=== PATIENT | female | born 1955 | race Caucasian/White ===

== ENCOUNTER 2025-01-12 13:43 | Outpatient (AMB) | payer MEDICARE, BC, SELFPAY ==
[2025-01-12 14:04] VITALS: BP 122/80; PULSE 83; TEMP 36.8; O2SAT 97; BMI 32.6
--- NOTE | 2025-01-12 14:04 | AM.OFFWIN_ITS ---
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 She reports low-grade fevers and chills. She feels as though she has a lot of chest congestion but she is unable to cough up any sputum. She also reports associated nasal congestion and rhinorrhea although this has improved. She denies any chest pain or shortness of breath. She denies any lower extremity edema. [facility] Social History Patient Tobacco Use Status: Never used Tobacco Review of Systems Const All systems reviewed & are unremarkable except as noted in HPI and below Reports no additional complaints Eyes Reports no additional complaints ENT Reports no additional complaints Card Reports no additional complaints Resp Reports no additional complaints GI Reports no additional complaints Reports no additional complaints Musc Reports no additional complaints Skin/Breast Reports system reviewed and no additional complaints, except as documented Neuro Reports no additional complaints Psych Reports no additional complaints Endo Reports no additional complaints Saad/Lymph Reports no additional complaints Aller/Immun Reports no additional complaints Physical Exam Vital Signs: Last Vital Signs Temp 98.3 F 01/12/25 14:04 Pulse 83 01/12/25 14:04 BP 122/80 01/12/25 14:04 Pulse Ox 97 01/12/25 14:04 BMI result Body Mass Index 32.6 Const Other: Vital signs reviewed. Constitutional: Non-toxic appearing. No acute distress. Well-developed and well-nourished. HEENT: Normocephalic and atraumatic. Moist mucous membranes. No pharyngeal erythema or exudates. Skin: Warm and dry. No rashes or lesions noted. Neck: Full and painless range of motion. No cervical lymphadenopathy. Cardio: Regular rate and rhythm. No murmurs, gallops, or rubs. No lower extremity edema. No JVD. Pulmonary: No respiratory distress. No accessory muscle usage. She has expiratory wheezing throughout as well as rhonchorous breath sounds of the right lung. Gastrointestinal: Soft, nontender, and nondistended in all 4 quadrants. Musculoskeletal: Normal range of motion in joints throughout the body. No deformity or other signs of injury. Neuro: Alert and oriented x4. Cranial nerves 2-12 grossly intact. No focal deficits appreciated. Psych: Normal mood and affect. Assessment & Plan Assessment & Plan (1) Pneumonia: Code(s): J18.9 - Pneumonia, unspecified organism Qualifiers: Pneumonia type: due to unspecified organism (2) Acute bronchitis: Code(s): J20.9 - Acute bronchitis, unspecified Qualifiers: Bronchitis organism: unspecified organism Qualified Code(s): J20.9 - Acute bronchitis, unspecified Plan This is a 69-year-old female who presented to the walk-in clinic complaining of chest congestion and a dry cough x1 week. On physical examination, the patient has expiratory wheezing throughout both lungs as well as rhonchorous breath sounds of the right lung. History and physical are concerning for community- acquired pneumonia as well as acute bronchitis. A chest x-ray was deferred to reduce exposure to radiation but given abnormal breath sounds, there is strong suspicion for pneumonia of the right lung as well as acute bronchitis. Patient was given p.o. amoxicillin/clavulanate 875/125 mg twice daily x5 days and p.o. azithromycin 500 mg today followed by 250 mg daily x4 days for treatment of presumed community-acquired pneumonia as well as p.o. prednisone 40 mg daily x5 days to treat acute bronchitis. Patient was offered COVID/flu/RSV testing but declined. She was advised to follow-up here or proceed directly to the [facility] room if she were to develop any hemoptysis, increased sputum production/purulence, or chest pain/shortness of breath. Patient verbalized understanding and she is in agreement with the plan. Medications: New amoxicillin-pot clavulanate 875-125 mg 1 tab PO BID 10 tabs 0RF prednisone 40 mg (2 x 20 mg) PO DAILY 10 tabs 0RF azithromycin For 250 mg dose pack: take 500 mg today (day 1), then 250 mg for 4 days (days 2-5) PO 6 tabs 0RF Discontinued azithromycin Discontinued Reason: Patient Completed Course take 500 mg today (day 1), then 250 mg for 4 days (days 2-5) PO 6 tabs 0RF Coding Level of Care Code New Pt Level 3 (32352) Diagnoses Pneumonia J18.9 Pneumonia type: due to unspecified organism Acute bronchitis, unspecified organism J20.9 Bronchitis organism: unspecified organism
--- OUTSIDE RECORDS SUMMARY | 2025-01-12 14:10 | XMS_ITS | Encounter Summary ---
Author Organization [facility] Address [address] [place] [address] Care Team Providers Care Head Athletic Trainer/Strength Coach Name Role Phone Clary Greenwood MD Primary Care Provider [phone] Encounter Details Date Type Department Care Team (Late Contact Info) Description 10/22/[address] [facility] Lab [address] [facility] [place] [address] Jose Francisco Morley MD [address] [place] [phone] Essential (primary) hypertension Social History Tobacco Use Types Packs/Day Years Used Date Smoking Tobacco: Never Smokeless Tobacco: Never Alcohol Use Standard Drinks/Week Comments Yes 0 (1 standard drink = 0.6 oz pur e alcohol) Comments Unknown Sex and Gender Information Value Date Recorded Sex Assigned at Not on file Legal Sex Female 2:47 AM EST Gender Identity Not on file Sexual Orientation Not on file documented as of this encounter Plan of Treatment Upcoming Encounters Date Type Department Care Team (Late Contact Info) Description 01/24/2025 2:00 PM EST Office Visit Urogynecology [address] [phone] Sarah Carballo MD [address] [facility] [address] [place] [address] 02/13/2025 11:00 AM EDT Office Visit Adult Medicine [id number] [place] [phone] Clary Greenwood MD [address] [place], [place] 02/20/2025 9:30 AM EDT Office Visit [facility] [place] [address] [facility] [address] [place] [phone] Frida Londono NP [address] [facility] [address] [place] [address] documented as of this encounter Procedures Procedure Name Priority Date/Time Associated Diagnosis Comments COMPLETE BLOOD COUNT Routine 10/23/2024 5:28 AM EST Essential (primary) hypertension COMPREHENSIVE METABOLIC PANEL Routine 10/23/2024 5:20 AM EST Essential (primary) hypertension documented in this encounter Results * (ABNORMAL) Complete blood count (10/23/2024 5:28 AM EST) WBC 6.0 4.8 - 10.8 K/mcL LAB HEMETOLOGY METHOD 10/23/2024 8:45 AM [facility] RBC 3.70(L) 3.80 - 4.80 M/mcL LAB HEMETOLOGY METHOD 10/23/2024 8:45 AM [facility] Hemoglobin 11.7 11.5 - 16.0 g/dL LAB HEMETOLOGY METHOD 10/23/2024 8:45 AM [facility] Hematocrit 35.5 35.0 - 47.0 % LAB HEMETOLOGY METHOD 10/23/2024 8:45 AM [facility] MCV 95.4 79.0 - 98.0 FL LAB HEMETOLOGY METHOD 10/23/2024 8:45 AM [facility] MCH 31.5 27.0 - 32.0 pcg LAB HEMETOLOGY METHOD 10/23/2024 8:45 AM EST [facility] MCHC 33.0 32.0 - 37.0 g/dL LAB HEMETOLOGY METHOD 10/23/2024 8:45 AM EST [facility] RDW 13.8 11.0 - 15.0 % LAB HEMETOLOGY METHOD 10/23/2024 8:45 AM [facility] Platelets 208 130 - 400 K/mcL LAB HEMETOLOGY METHOD 10/23/2024 8:45 AM EST [facility] MPV 9.8 7.0 - 11.0 FL LAB HEMETOLOGY METHOD 10/23/2024 8:45 AM [facility] NRBC 0.0 <1.0 % LAB HEMETOLOGY METHOD 10/23/2024 8:45 AM [facility] NRBC Absolute 0.00 <0.10 K/mcL LAB HEMETOLOGY METHOD 10/23/2024 8:45 AM [facility] Blood Venous blood specimen / Unknown Venipuncture / Unknown 10/23/2024 5:28 AM EST 10/23/2024 8:20 AM EST us Jose Francisco Morley MD LAB BLOOD ORDERABLES Final Resu lt [facility] [address] [place] [address], * (ABNORMAL) Comprehensive metabolic panel (10/23/2024 5:20 AM EST) Sodium 142 133 - 145 mmol/L LAB CHEMISTRY METHOD 10/23/2024 9:15 AM EST [facility] Potassium 4.7 3.5 - 5.5 mmol/L LAB CHEMISTRY METHOD 10/23/2024 9:15 AM [facility] Chloride 111(H) 96 - 110 mmol/L LAB CHEMISTRY METHOD 10/23/2024 9:15 AM [facility] CO2 26 21 - 32 mmol/L LAB CHEMISTRY METHOD 10/23/2024 9:15 AM [facility] Anion Gap 5 3 - 11 LAB CHEMISTRY METHOD 10/23/2024 9:15 AM [facility] Glucose 111(H) 70 - 100 mg/dL LAB CHEMISTRY METHOD 10/23/2024 9:15 AM [facility] BUN 28(H) 5 - 25 mg/dL LAB CHEMISTRY METHOD 10/23/2024 9:15 AM [facility] Creatinine 0.88 0.50 - 1.10 mg/dL LAB CHEMISTRY METHOD 10/23/2024 9:15 AM [facility] eGFR 72 >=60 mL/min/1. 73m2 LAB CHEMISTRY METHOD 10/23/2024 9:15 AM [facility] Comment:Calculation based on the??Chronic Kidney Disease Epidemiology Collaboration (CKD-EPI) equation refit??without adjustment for race. BUN/Creatinine Ratio 31.8 LAB CHEMISTRY METHOD 10/23/2024 9:15 AM [facility] Calcium 8.5 8.5 - 10.5 mg/dL LAB CHEMISTRY METHOD 10/23/2024 9:15 AM [facility] AST (SGOT) 22 10 - 42 unit/L LAB CHEMISTRY METHOD 10/23/2024 9:15 AM [facility] ALT (SGPT) 42 10 - 60 unit/L LAB CHEMISTRY METHOD 10/23/2024 9:15 AM [facility] Alkaline Phosphatase 78 42 - 121 unit/L LAB CHEMISTRY METHOD 10/23/2024 9:15 AM [facility] Total Protein 5.9(L) 6.0 - 8.0 g/dL LAB CHEMISTRY METHOD 10/23/2024 9:15 AM [facility] Albumin 3.5 3.2 - 5.0 g/dL LAB CHEMISTRY METHOD 10/23/2024 9:15 AM EST [facility] Total Bilirubin 0.4 0.0 - 1.4 mg/dL LAB CHEMISTRY METHOD 10/23/2024 9:15 AM EST [facility] Blood Venous blood specimen / Unknown Venipuncture / Unknown 10/23/2024 5:20 AM EST 10/23/2024 8:23 AM EST us Jose Francisco Morley MD LAB BLOOD ORDERABLES Final Resu lt [facility] [address] [place] [address], documented in this encounter Visit Diagnoses Diagnosis Essential (primary) hypertension Unspecified essential hypertension documented in this encounter Care Teams Head Athletic Trainer/Strength Coach Relationship Specialty Start Date End Date Clary Greenwood MD [address] [place] [id number] PCP - General 11/30/1992 documented as of this encounter
--- OUTSIDE RECORDS SUMMARY | 2025-01-12 14:10 | XMS_ITS | Clinical Summary ---
Author Organization [facility] Address [address] [place] [address] Phone Care Team Providers Care Needle Setter Name Role Phone Clary Greenwood MD Primary Care Provider [phone] Allergies Active Allergy Reactions Criticality Noted Date Comments Amoxicillin Diarrhea Low 10/13/2021 Amoxicillin-Pot Clavulanate Diarrhea Low 03/21/2015 Cephalexin Nausea And Vomiting Low 10/29/2010 Other reaction(s): Other (See Comments) Other reaction(s): GI Upset ? Caused dizziness n/v Unsure if it was the keflex because was also ??on bactrim Cephalexin Monohydrate Nausea And Vomiting,Other Low 10/29/2010 ? Caused dizziness n/v Unsure if it was the keflex because was on bactrim also Clavulanic Acid Diarrhea Low 10/13/2021 Other reaction(s): Other (See Comments) Hydrochlorothiazide Photosensitivity Low 10/12/2005 Hydrocodone Low 10/12/2005 Other reaction(s): Other (See Comments) paresthesias and sensation of bugs crawling Meperidine Headache Low 03/25/2015 Dizziness, vomiting, and headache after demerol in 2002 colonoscopy. Other reaction(s): Other (See Comments) Other reaction(s): Headaches Dizziness, vomiting, and headache after demerol in 2003 colonoscopy. Norepinephrine Bitartrate Unknown 12/21/2024 Oxycodone Itching Medium 01/26/2022 Sulfamethoxazole Low 10/13/2021 Other reaction(s): Other (See Comments) GI upset Sulfamethoxazole-Trimetho prim Nausea And Vomiting Low 10/29/2010 Other reaction(s): OTHER, Other (See Comments) Dizziness and n/v ??Unsure if it was the bactrim because was also on keflex Other reaction(s): GI Upset Dizziness and n/v Unsure if it was the bactrim because was also on keflex Trimethoprim Low 10/13/2021 Other reaction(s): Other (See Comments) Sulfa- ??Gi upset Medications calcium carbonate-vitam in D 500 mg-5 mcg (200 unit) per tablet Take 1 tablet by mouth daily. Active fluticasone propionate (FLONASE) 50 mcg/actuation nasal spray spray/apply 1 spray in each nostril 2 (two) times a day. 1 Active furosemide (LASIX) 20 mg tablet Take 1 tablet by mouth daily. 6 Active multivitamin (MULTIPLE VITAMINS ORAL) Take 1 tablet by mouth daily. Active vitamin B complex (VITAMINS B COMPLEX ORAL) Take by mouth. Active acetaminophen (TYLENOL) 500 mg tablet Sig - Route: Take 1,000 mg by mouth every 6 hours as needed. - Oral Class: Historic Active turmeric root extract 500 mg capsule Take by mouth. Active amLODIPine (NORVASC) 10 mg tablet Take 1 Tablet by mouth at bedtime. 4 Active fexofenadine (EBONI) 180 mg tablet Take 1 tablet (180 mg total) by mouth 1 (one) time each day. 4 Active spironolactone (ALDACTONE) 25 mg tablet TAKE 1 TABLET BY MOUTH AT BEDTIME. 4 Active aspirin 81 mg EC tablet Take 1 tablet (81 mg total) by mouth 1 (one) time each day. Active atorvastatin (LIPITOR) 80 mg tablet Take 1 tablet (80 mg total) by mouth at bedtime. 90 tablet 1 4 Active losartan (COZAAR) 100 mg tablet Take 1 tablet (100 mg total) by mouth 1 (one) time each day. 90 tablet 1 4 Active loratadine (CLARITIN) 10 mg tablet Take 10 mg by mouth every night at bedtime. 1 12/21/19 25 Discontinu ed(Alterna te therapy) clopidogreL (PLAVIX) 75 mg tablet Take 1 tablet (75 mg total) by mouth 1 (one) time each day. 90 tablet 1 4 12/21/19 25 Discontinu ed(Therapy completed) Active Problems Problem Noted Date Diagnosed Date Stroke (cerebrum) 10/17/2024 Prediabetes 06/19/2024 [place] (stress urinary incontinence, female) 2022 Overview (01/31/2024): Last Assessment & Plan: Reviewed behavioral modifications including weight loss, kegel exercises, etc. Severe obesity (BMI 35.0-35.9 with comorbidity) 12/09/2022 Osteopenia 09/10/2022 Total knee replacement status 03/02/2022 Overview (11/04/2024): 02/10 left TKR 06/12 right TKR Osteoarthritis of both knees 05/15/2020 Overview (11/04/2024): L>R Obesity (BMI 30.0-34.9) 06/07/2018 Pulmonary nodules/lesions, multiple 09/12/2014 Medial meniscus tear 04/04/2014 Hyperlipidemia 11/09/2012 Retinal vein occlusion 01/04/2012 Overview (11/04/2024): Left, laser treatment Incontinence of feces 02/12/2010 Overview (12/09/2022): IMO update IMO update DJD (degenerative joint disease) of cervical spi ne 02/09/2008 Headache 09/13/2007 Allergic rhinitis 12/24/2006 Sciatica 10/12/2005 Venous (peripheral) insufficiency 10/12/2005 Essential hypertension, benign 10/12/2005 Encounters Date Type Department Care Team Description 12/21/2024 4:00 PM EST Office Visit [facility] [place] [address] [phone] Keshav Araujo MD Pure hypercholesterolemia (Primary Dx); Primary hypertension; Bilateral leg edema 12/13/[address] [phone] Clary Greenwood MD Hide Grader Feedback ([facility]) 12/01/[address] [phone] Verona Olsen [place] faxed order ([facility] Visiting Nurse order #[id number]) 11/27/[address] [phone] Clary Greenwood MD Referral 11/07/2024 1:00 PM EST Office Visit [address] [phone] Clary Greenwood MD Cerebrovascular accident (CVA) due to thrombosis of right posterior cerebral artery (CMS/HCC) (Primary Dx); Essential hypertension, benign; Prediabetes 11/06/[address] [phone] Clary Greenwood MD [facility] 11/01/[address] [phone] Clary Greenwood MD vna 10/31/[address] [phone] Clary Greenwood MD [facility] 10/29/2024 Lab Requisition [facility] [address] [facility] [place] [phone] Jose Francisco Morley MD Cerebral infarction, unspecified (CMS/HCC); Essential (primary) hypertension 10/25/2024 Lab Requisition [facility] [address] [place] [phone] Jose Francisco Morley MD Cerebral infarction, unspecified ([facility]); Essential (primary) hypertension 10/24/2024 Lab Requisition [facility] [address] [place] [phone] Jose Francisco Morley MD Other specified abnormal findings of blood chemistry; Hyperlipidemia, unspecified; Cerebral infarction, unspecified ([facility]/HCC); Essential (primary) hypertension 10/22/2024 Lab Requisition [facility] [address] [place] [phone] Jose Francisco Morley MD Essential (primary) hypertension 10/22/2024 Lab Requisition [facility] [address] [place] [phone] Jose Francisco Morley MD Essential (primary) hypertension from Last 3 Months Immunizations Name Administration Dates Next Due Influenza trivalent, 0.5mL ( Fluad) 65yo and older 07/25/2024 Influenza trivalent, 0.5mL ( Fluzone High-dose) 65yo and older 08/22/2023 Influenza, Unspecified 08/24/2022,2020,09/15/2020,08/23,11/24/2018,11/26/2016,01/30/2015 ,09/15/2013,01/04/2012,12/27/2009 [employer] SARS-CoV-2 COVID-19, mRNA, LNP-S, preservative free 04/06/2022,09/26/2021 Pneumococcal conjugate 13 va lent (Prevnar 13, PCV13) 2mo and older 11/04/2021 Pneumococcal conjugate 20 va lent (Prevnar 20, PCV 20) 2mo and older 11/28/2022 Pneumococcal polysaccharide 23 valent (Pneumovax 23) 2yo and older 10/28/2012 Pneumococcal, Unspecified 10/27/2012 RSV, bivalent, protein subun it RSVpreF, 0.5mL, Preservative Free (ABRYSVO) 60yo and older or 32 through 36 wks of 07/20/2023 TD, Adsorbed, Preservative Free 08/24/2022 Td Tetanus diptheria (Tdvax) 7yo and older 08/24/2022,03/22/2003 Tdap Tetanus diptheria acell ular pertussis (Boostrix; Adacel) 7yo and older 01/04/2012 Zoster Live 03/04/2022 Zoster recombinant (Shingrix ) 19yo and older 11/28/2022,03/04/2022 Surgical History Surgery Date Site/Laterality Comments OTHER SURGICAL HISTORY -1993 diskectomy L5 OTHER SURGICAL HISTORY RADIAL KERATOTOMY; COMMENT: left eye FLEXIBLE SIGMOIDOSCOPY 02/16/2010 normal COLONOSCOPY 06/2003 COLONOSCOPY 12/14/2013 adenomas; repeat in 1 year COLONOSCOPY 03/25/2015 : tics; repeat in 5 yrs BUNIONECTOMY 01/11/2018 Right : right chevron bunionectomy with screw fixation OTHER SURGICAL HISTORY 01/11/2018 Right : 2nd right PIPJ arthroplasty BREAST BIOPSY Left : benign TOTAL KNEE ARTHROPLASTY 01/2022 Left Medical History Medical History Date Comments Unspecified venous (peripheral) insufficiency Sciatica Allergic rhinitis, cause unspecified 12/24/2006 Essential hypertension, benign Hyperlipidemia 11/09/2012 DJD (degenerative joint disease) of cervical spi ne 02/09/2008 Retinal vein occlusion (CMS/HCC) 01/04/2012 Left, laser treatment Incontinence of feces 02/12/2010 Medial meniscus tear 04/04/2014 DX:Medial m eniscus tear Osteoarthritis of both knees 05/15/2020 Prediabetes 06/19/2024 Family History Medical History Relation Name Comments Diabetes Brother Heart attack Father htn, diabetes d ied 67 Arthritis Maternal Grandmother Arthritis Mother Heart failure Mother htn, 61, RA Prostate cancer Uncle Paternal Relation Name Status Comments Brother Father Maternal Grandmother Mother Other Paternal cousin Alive Uncle Social History Tobacco Use Types Packs/Day Years Used Date Smoking Tobacco: Never Passive Smoke Exposure: Past Smokeless Tobacco: Never Alcohol Use Standard Drinks/Week Comments Yes 0 (1 standard drink = 0.6 oz pur e alcohol) Comments Unknown Sex and Gender Information Value Date Recorded Sex Assigned at Not on file Legal Sex Female 2:47 AM EST Gender Identity Not on file Sexual Orientation Not on file Obstetrics History Last Filed Vital Signs Vital Sign Reading Time Taken Comments Blood Pressure 154/72 12/21/2024 4:03 PM EST Pulse 74 12/21/2024 4:03 PM EST Temperature 36.4 ??C (97.5 ??F) 11/07/2024 12:[address] Respiratory Rate 16 11/07/2024 12:49 PM EST Oxygen Saturation 100% 12/21/2024 4:03 PM EST Inhaled Oxygen Concentration - - Weight 85.3 kg (188 lb) 12/21/2024 4:03 PM EST Height 158.8 cm (5' 2.5 ) 12/21/2024 4:03 PM EST Body Mass Index 33.84 12/21/2024 4:03 PM EST Plan of Treatment Upcoming Encounters Date Type Department Care Team (Late st Contact Info) Description 01/24/2025 2:00 PM EST Office Visit Urogynecology [facility] [address] [place], [place] [phone] Sarah Carballo MD [address] [facility] [address] [place] [address] 02/13/2025 11:00 AM EDT Office Visit Adult Medicine [facility] - [address] [phone] Clary Greenwood MD [address] [place], [place] 02/20/2025 9:30 AM EDT Office Visit [facility] [place] [address] [facility] [address] [place] [phone] Frida Londono NP 19 [facility] [address] [place] [address] Health Maintenance Due Date Last Done Comments Social Influencers of Health Screening 10/30/2022 Falls Risk Assessment 11/29/2024 11/29/2023, 024 Colorectal Cancer Screening: Colonoscopy 05/13/2025 05/13/2020 Depression Screening 06/05/2025 06/05/2024, 08/24/20 22 Medicare Annual Wellness Visit 06/05/2025 06/05/2024 Hypertension/CHF/CAD Annual BMP Blood Test 10/30/2025 10/30/2024, 10/26/2024, 10/24/2024, Additional history exists Breast Cancer Screening 09/19/2026 09/19/20, 09/19/2024, 09/13/2023, Additional history exists Cholesterol Screening (Lipid Panel) 06/06/2029 06/06/2024, 06/06/2024, 03/10/2023 DTaP,Tdap,and Td Vaccines (5 - Td or Tdap) 08/24/2032 08/24/2022, 08/24/2022, 01/04/2012, Additional history exists Osteoporosis Screening (Bone Density Screening) 09/09/2032 09/09/2022 Hepatitis C Screening Completed 05/11/2013, 013 Pneumococcal Vaccine: 50+ Years Completed 11/28/2022, 11/04/2021, 10/28/2012, Additional history exists Zoster Vaccines Completed 11/28/2022, 02/20, 03/04/2022 RSV Immunization Patients 60+ Years Old Completed 07/20/2023 COVID-19 Vaccine Completed 07/25/2024, , 04/06/2022, Additional history exists Influenza Vaccine Completed 07/25/2024, , 08/24/2022, Additional history exists HIB Vaccines Aged Out No longer eligi ble based on patient's age to complete this topic HPV Vaccines Aged Out No longer eligi ble based on patient's age to complete this topic Hepatitis A Vaccines Aged Out No long er eligible based on patient's age to complete this topic Hepatitis B Vaccines Aged Out No long er eligible based on patient's age to complete this topic IPV Vaccines Aged Out No longer eligi ble based on patient's age to complete this topic MMR Vaccines Aged Out No longer eligi ble based on patient's age to complete this topic Meningococcal ACWY Vaccine Aged Out N o longer eligible based on patient's age to complete this topic Meningococcal B Vacine Aged Out No lo nger eligible based on patient's age to complete this topic RSV Immunization Patients Under 20 months Aged Out No longer eligible based on patient's age to complete this topic Varicella Vaccines Aged Out No longer eligible based on patient's age to complete this topic Medical Devices Implanted Type Area Maintenance Service Dispatcher Device Identifier Shelf Expiration Date Model / Serial / Lot Cement Bone Surg Simplex Radiopq Stry-Howm [id number] Implanted:Qty: 1 on 01/26/2022 by Gonzalo Pope MD Left: Knee [employer] 6191-1-010 / / Cement Bone Surg Simplex Radiopq Stry-Howm [id number] [id number] Implanted:Qty: 1 on 01/26/2022 by Gonzalo Pope MD Left: Knee [employer] 6191-010 / / Knee Bsplt Triathlon Ti Sz 4 Stry-Howm [id number] Implanted:Qty: 1 on 01/26/2022 by Gonzalo Pope MD Left: Knee [employer] [id number] 10/27/2026 5536-B-400 / / [id number] Knee Ptla Asym Tritanium 32x10 Stry-Howm [id number] [id number] Implanted:Qty: 1 on 01/26/2022 by Gonzalo Pope MD Left: Knee [employer] [id number] 10/16/2026 5552-L-320 / / [id number] Knee Tib Insrt Cr-X3 [id number] Stry-Howm [id number] Implanted:Qty: 1 on 01/26/2022 by Gonzalo Pope MD Left: Knee [employer] [id number] 02/10/2025 5530-G-411 / / [id number] Knee Fem Bsplt W Pa Stry-Howm [id number] Implanted:Qty: 1 on 01/26/2022 by Gonzalo Pope MD Left: Knee [employer] [id number] 10/26/2026 5517-F-401 / / [id number] Tibial Bearing Insert Cs 10mm Stry-Howm [id number] Implanted:Qty: 1 on 06/22/2022 by Gonzalo Pope MD Right: Knee [employer] [id number] 05/05/2027 5531-G-410 -E / / [id number] Knee Bsplt Triathlon Ti Sz 4 Stry-Howm [id number] Implanted:Qty: 1 on 06/22/2022 by Gonzalo Pope MD Right: Knee [employer] [id number] 04/09/2027 5536-B-400 / / [id number] Knee Fem Bsplt W Pa Stry-Howm [id number] Implanted:Qty: 1 on 06/22/2022 by Gonzalo Pope MD Right: Knee [employer] [id number] 03/29/2027 5517-F-402 / / [id number] Knee Ptla Asym Tritanium 32x10 Stry-Howm [id number] Implanted:Qty: 1 on 06/22/2022 by Gonzalo Pope MD Right: Knee [employer] [id number] 04/01/2027 5552-L-320 / / [id number] Procedures Procedure Name Priority Date/Time Associated Diagnosis Comments ECG 12-LEAD Routine 12/21/2024 4:14 PM EST Pure hypercholesterolemia Primary hypertension Bilateral leg edema COMPREHENSIVE METABOLIC PANEL Routine 10/30/2024 5:24 AM EST Cerebral infarction, unspecified (CMS/HCC) Essential (primary) hypertension COMPLETE BLOOD COUNT Routine 10/30/2024 5:24 AM EST Cerebral infarction, unspecified (CMS/HCC) Essential (primary) hypertension BASIC METABOLIC PANEL Routine 10/26/2024 5:19 AM EST Cerebral infarction, unspecified (CMS/HCC) Essential (primary) hypertension COMPLETE BLOOD COUNT Routine 10/26/2024 5:19 AM EST Cerebral infarction, unspecified (CMS/HCC) Essential (primary) hypertension COMPREHENSIVE METABOLIC PANEL Routine 10/24/2024 5:26 AM EST Other specified abnormal findings of blood chemistry Hyperlipidemia, unspecified Cerebral infarction, unspecified (CMS/HCC) Essential (primary) hypertension COMPLETE BLOOD COUNT Routine 10/24/2024 5:26 AM EST Other specified abnormal findings of blood chemistry Hyperlipidemia, unspecified Cerebral infarction, unspecified (CMS/HCC) Essential (primary) hypertension COMPLETE BLOOD COUNT Routine 10/23/2024 5:28 AM EST Essential (primary) hypertension COMPREHENSIVE METABOLIC PANEL Routine 10/23/2024 5:20 AM EST Essential (primary) hypertension COMPREHENSIVE METABOLIC PANEL Routine 10/22/2024 6:28 AM EST Essential (primary) hypertension COMPLETE BLOOD COUNT Routine 10/22/2024 6:28 AM EST Essential (primary) hypertension SCREENING MAMMOGRAPHY BI 2-VIEW BREAST INC CAD Routine 09/19/2024 8:19 AM EDT Encounter for screening mammogram for malignant neoplasm of breast LIPID PANEL Routine 06/06/2024 DEPRESSION SCREENING Routine 06/05/2024 FALLS RISK ASSESSMENT Routine 11/29/2023 DXA BONE DENSITY STUDY 1+ SITS AXIAL SKEL Routine 09/09/2022 2:02 PM EDT Asymptomatic menopausal state HEPATITIS C SCREENING Routine 05/11/2013 from Last 3 Months or Most Recently Relevant to Health Maintenance Results * ECG 12 lead (12/21/2024 4:14 PM EST) Narrative Keshav Araujo MD - 12/21/2024 4:14 PM EST Normal sinus rhythm at 68 bpm with poor R wave progression across the early leads and minor ST abnormality-otherwise normal tracing us Keshav Araujo MD ECG ORDERABLES Final Result * (ABNORMAL) Complete blood count (10/30/2024 5:24 AM EST) Only the most recent of5 resultswithin the time period is included. WBC 5.9 4.8 - 10.8 K/mcL LAB HEMETOLOGY METHOD 10/30/2024 9:48 AM [facility] RBC 3.70(L) 3.80 - 4.80 M/mcL LAB HEMETOLOGY METHOD 10/30/2024 9:48 AM [facility] Hemoglobin 11.5 11.5 - 16.0 g/dL LAB HEMETOLOGY METHOD 10/30/2024 9:48 AM [facility] Hematocrit 35.5 35.0 - 47.0 % LAB HEMETOLOGY METHOD 10/30/2024 9:48 AM [facility] MCV 96.2 79.0 - 98.0 FL LAB HEMETOLOGY METHOD 10/30/2024 9:48 AM [facility] MCH 31.2 27.0 - 32.0 pcg LAB HEMETOLOGY METHOD 10/30/2024 9:48 AM [facility] MCHC 32.4 32.0 - 37.0 g/dL LAB HEMETOLOGY METHOD 10/30/2024 9:48 AM [facility] RDW 13.5 11.0 - 15.0 % LAB HEMETOLOGY METHOD 10/30/2024 9:48 AM [facility] Platelets 212 130 - 400 K/mcL LAB HEMETOLOGY METHOD 10/30/2024 9:48 AM [facility] MPV 9.9 7.0 - 11.0 FL LAB HEMETOLOGY METHOD 10/30/2024 9:48 AM [facility] NRBC 0.0 <1.0 % LAB HEMETOLOGY METHOD 10/30/2024 9:48 AM EST [facility] NRBC Absolute 0.00 <0.10 K/mcL LAB HEMETOLOGY METHOD 10/30/2024 9:48 AM [facility] Blood Venous blood specimen / Unknown Venipuncture / Unknown 10/30/2024 5:24 AM EST 10/30/2024 9:33 AM EST us Jose Francisco Morley MD LAB BLOOD ORDERABLES Final Resu lt [facility] [address] [place] [address], [place] [phone] * (ABNORMAL) Comprehensive metabolic panel (10/30/2024 5:24 AM EST) Only the most recent of4 resultswithin the time period is included. Sodium 142 133 - 145 mmol/L LAB CHEMISTRY METHOD 10/30/2024 10:15 AM [facility] Potassium 4.9 3.5 - 5.5 mmol/L LAB CHEMISTRY METHOD 10/30/2024 10:15 AM [facility] Chloride 109 96 - 110 mmol/L LAB CHEMISTRY METHOD 10/30/2024 10:15 AM [facility] CO2 28 21 - 32 mmol/L LAB CHEMISTRY METHOD 10/30/2024 10:15 AM [facility] Anion Gap 5 3 - 11 LAB CHEMISTRY METHOD 10/30/2024 10:15 AM [facility] Glucose 107(H) 70 - 100 mg/dL LAB CHEMISTRY METHOD 10/30/2024 10:15 AM [facility] BUN 17 5 - 25 mg/dL LAB CHEMISTRY METHOD 10/30/2024 10:15 AM [facility] Creatinine 0.66 0.50 - 1.10 mg/dL LAB CHEMISTRY METHOD 10/30/2024 10:15 AM [facility] eGFR 96 >=60 mL/min/1. 73m2 LAB CHEMISTRY METHOD 10/30/2024 10:15 AM [facility] Comment:Calculation based on the??Chronic Kidney Disease Epidemiology Collaboration (CKD-EPI) equation refit??without adjustment for race. BUN/Creatinine Ratio 25.8 LAB CHEMISTRY METHOD 10/30/2024 10:15 AM [facility] Calcium 9.0 8.5 - 10.5 mg/dL LAB CHEMISTRY METHOD 10/30/2024 10:15 AM [facility] AST (SGOT) 12 10 - 42 unit/L LAB CHEMISTRY METHOD 10/30/2024 10:15 AM [facility] ALT (SGPT) 24 10 - 60 unit/L LAB CHEMISTRY METHOD 10/30/2024 10:15 AM [facility] Alkaline Phosphatase 90 42 - 121 unit/L LAB CHEMISTRY METHOD 10/30/2024 10:15 AM [facility] Total Protein 5.8(L) 6.0 - 8.0 g/dL LAB CHEMISTRY METHOD 10/30/2024 10:15 AM [facility] Albumin 3.3 3.2 - 5.0 g/dL LAB CHEMISTRY METHOD 10/30/2024 10:15 AM [facility] Total Bilirubin 0.4 0.0 - 1.4 mg/dL LAB CHEMISTRY METHOD 10/30/2024 10:15 AM [facility] Blood Venous blood specimen / Unknown Venipuncture / Unknown 10/30/2024 5:24 AM EST 10/30/2024 9:25 AM EST us Jose Francisco Morley MD LAB BLOOD ORDERABLES Final Resu lt [facility] [address] [place] [address], [place] [phone] * (ABNORMAL) Basic metabolic panel (10/26/2024 5:19 AM EST) Sodium 144 133 - 145 mmol/L LAB CHEMISTRY METHOD 10/26/2024 9:07 AM [facility] Potassium 5.0 3.5 - 5.5 mmol/L LAB CHEMISTRY METHOD 10/26/2024 9:07 AM [facility] Chloride 111(H) 96 - 110 mmol/L LAB CHEMISTRY METHOD 10/26/2024 9:07 AM [facility] CO2 29 21 - 32 mmol/L LAB CHEMISTRY METHOD 10/26/2024 9:07 AM [facility] Anion Gap 4 3 - 11 LAB CHEMISTRY METHOD 10/26/2024 9:07 AM [facility] Glucose 102(H) 70 - 100 mg/dL LAB CHEMISTRY METHOD 10/26/2024 9:07 AM [facility] BUN 21 5 - 25 mg/dL LAB CHEMISTRY METHOD 10/26/2024 9:07 AM [facility] Creatinine 0.84 0.50 - 1.10 mg/dL LAB CHEMISTRY METHOD 10/26/2024 9:07 AM [facility] eGFR 76 >=60 mL/min/1. 73m2 LAB CHEMISTRY METHOD 10/26/2024 9:07 AM [facility] Comment:Calculation based on the??Chronic Kidney Disease Epidemiology Collaboration (CKD-EPI) equation refit??without adjustment for race. BUN/Creatinine Ratio 25.0 LAB CHEMISTRY METHOD 10/26/2024 9:07 AM [facility] Calcium 9.4 8.5 - 10.5 mg/dL LAB CHEMISTRY METHOD 10/26/2024 9:07 AM [facility] Blood Venous blood specimen / Unknown Venipuncture / Unknown 10/26/2024 5:19 AM EST 10/26/2024 8:15 AM EST us Jose Francisco Morley MD LAB BLOOD ORDERABLES Final [facility]u lt [facility] [address] [place] [address], * SCREENING MAMMOGRAPHY BI 2-VIEW BREAST INC CAD (09/19/2024 8:19 AM EDT) Anatomical Region Laterality Modality Radiographic Eden ging 09/13/2023 8:12 AM EDT Narrative 09/19/2024 4:42 PM EDT This is a summary report. The complete report is available in the patient's medical record. If you cannot access the medical record, please contact the sending organization for a detailed fax or copy. BILATERAL 3D DIGITAL SCREENING MAMMOGRAM History: Routine screening. ??No current breast complaints. ?? Comparison: Multiple priors dating back to 01/08/2020 Technique: Bilateral full-field digital 3D mammography was performed using standard CC and MLO projections CAD was used to evaluate this mammogram. Findings: Density: ??There are scattered areas of fibroglandular density-B RIGHT: No suspicious masses, groups of microcalcification or areas of architectural distortion identified. Stable typically benign parenchymal asymmetries LEFT: No suspicious masses, groups of microcalcifications or areas of architectural distortion identified. Stable typically benign parenchymal asymmetries IMPRESSION: : 1. ??No mammographic evidence of malignancy. BI-RADS Category 2 benign findings Recommendation: Routine annual screening mammography is recommended [facility] [address] [place] [address] [id number] Procedure Note Pierce Ceballos MD - 09/23/2024 This is a summary report. The complete report is available in thepatient's medical record. If you cannot access the medical record, pleasecontact the sending organization for a detailed fax or copy. BILATERAL 3D DIGITAL SCREENING MAMMOGRAM History: Routine screening. No current breast complaints. Comparison: Multiple priors dating back to 01/08/2020 Technique: Bilateral full-field digital 3D mammography was performed usingstandard CC and MLO projections CAD was used to evaluate this mammogram. Findings: Density: There are scattered areas of fibroglandular density-B RIGHT: No suspicious masses, groups of microcalcification or areas ofarchitectural distortion identified. Stable typically benign parenchymalasymmetries LEFT: No suspicious masses, groups of microcalcifications or areas ofarchitectural distortion identified. Stable typically benign parenchymalasymmetries IMPRESSION: : 1. No mammographic evidence of malignancy. BI-RADS Category 2 benign findings Recommendation: Routine annual screening mammography is recommended [id number] [place] [address] Clary Greenwood MD IMG XR PROCEDURES Final Result * (ABNORMAL) Lipid panel (06/06/2024) LDL/HDL Ratio 3 0 - 4 Triglycerides 83 0 - 150 mg/dL Cholesterol 197 0 - 200 mg/dL HDL 59 >=40 mg/dL LDL Cholesterol 122(A) 0 - 100 mg/dL Blood Venous blood specimen / Unknown Result [facility] Historical Provider LAB BLOOD ORDERABLES Rachel l Result * Depression Screening (06/05/2024) Pathologist [facility] Depression Screening abstracted Historical Provider HEALTH MAINTENANCE Final Result * Falls Risk Assessment (11/29/2023) Pathologist [facility] Falls Risk Assessment abstracted Result [facility] Historical Provider HEALTH MAINTENANCE Final Result * DXA BONE DENSITY STUDY 1+ SITS AXIAL SKEL (09/09/2022 2:02 PM EDT) Anatomical Region Laterality Modality Bone Densitometr y 08/26/2021 1:24 PM EDT Narrative 09/10/2022 12:42 PM EDT BONE DENSITY ? Lumbar Spine T-score is -1.6 ?? (SD relative to 20-29 y/o adult) Z-score is +0.2 ??(SD relative to age matched peers) This is consistent with osteopenia by criteria defined by the WHO. Left Hip T-score is -1.9 Z-score is -0.3 This is consistent with osteopenia by criteria defined by the WHO. Impression: Based on the World Health Organization criteria, Alethea Shea should be classified as having osteopenia. This patient has a 9.8% risk of major osteoporotic fracture and a 1.4% risk of hip fracture over the next 10 years. (World Health Organization Fracture Risk Assessment) [facility] Department of Internal Medicine recommends using National Osteoporosis Foundation (NOF) guidelines in treatment decisions related to osteoporosis. NOF guidelines suggest considering treatment for postmenopausal women and men aged 50 or older presenting with the following: History of hip or vertebral fracture. T-score less than or equal to -2.5 (DXA) at the femoral neck, total hip, or spine, after appropriate evaluation to exclude secondary causes. Low bone mass (T-score between -1.0 and -2.5 at the femoral neck or spine) AND a 10-year probability of a hip fracture greater than or equal to 3% OR a 10-year probability of a major osteoporosis-related fracture greater than or equal to 20% based on the [place]-adapted WHO algorithm Please note that all treatment decisions require clinical judgment and consideration of individual patient factors, including patient preferences, co-morbidities, previous drug use, risk factors not captured in the FRAX model (e.g., frailty, falls, vitamin D deficiency, increased bone turnover, interval significant decline in bone density) and possible under- or over-estimation of fracture risk by FRAX. Procedure Note Cheko Angel MD - 11/10/2022 BONE DENSITY Lumbar Spine T-score is -1.6 (SD relative to 20-29 y/o adult) Z-score is +0.2 (SD relative to age matched peers) This is consistent with osteopenia by criteria defined by the WHO. Left Hip T-score is -1.9 Z-score is -0.3 This is consistent with osteopenia by criteria defined by the WHO. Impression: Based on the World Health Organization criteria, Alethea hSea should beclassified as having osteopenia. This patient has a 9.8% risk of majorosteoporotic fracture and a 1.4% risk of hip fracture over the next 10years. (World Health Organization Fracture Risk Assessment) [facility] Department of Internal Medicine recommendsusing National Osteoporosis Foundation (NOF) guidelines in treatmentdecisions related to osteoporosis. NOF guidelines suggest consideringtreatment for postmenopausal women and men aged 50 or older presentingwith the following: History of hip or vertebral fracture. T-score less than or equal to -2.5 (DXA) at the femoral neck, total hip,or spine, after appropriate evaluation to exclude secondary causes. Low bone mass (T-score between -1.0 and -2.5 at the femoral neck or spine)AND a 10-year probability of a hip fracture greater than or equal to 3% ORa 10-year probability of a major osteoporosis-related fracture greaterthan or equal to 20% based on the [place]-adapted WHO algorithm Please note that all treatment decisions require clinical judgment andconsideration of individual patient factors, including patientpreferences, co-morbidities, previous drug use, risk factors not capturedin the FRAX model (e.g., frailty, falls, vitamin D deficiency, increasedbone turnover, interval significant decline in bone density) and possibleunder- or over-estimation of fracture risk by FRAX. Krystina MG IMG DXA PROCEDURES Final Resu lt * Hepatitis C Screening (05/11/2013) [facility] Hepatitis C Screening abstracted Historical Provider MD HEALTH MAINTENANCE Final Result from Last 3 Months or Most Recently Relevant to Health Maintenance Insurance MEDICARE [facility] Care Teams Needle Setter Relationship Specialty Start Date End Date Clary Greenwood MD [address] [place] [phone] PCP - General 11/30/1991
--- OUTSIDE RECORDS SUMMARY | 2025-01-12 14:10 | XMS_ITS | Encounter Summary ---
Author Organization [facility] Address [address] [place] [address] Care Team Providers Care Jumbo Operator Name Role Phone Clary Greenwood MD Primary Care Provider [phone] Reason for Referral * Consultation (Routine) - Authorized Specialty Diagnoses / Procedures Referred By Contjamar t Referred To Contact Dermatology Diagnoses Basal cell carcinoma (BCC) of scalp Pooja Hernandez PA [address] [place] [id number] Phone: tel: fax: Referral ID Status Reason Start Date Expiration Date Visits Requested Visits Authorized [id number] Authorized Specialty Services Required 12/13/2024 12/13/2025 1 1 Reason for Visit * Reason Onset Date Comments 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 * HARITHA Costello - 12/13/2024 11:59 AM EST Referral is signed. * Katie Valverde - 12/13/2024 10:47 AM EST Patient called the office about her referral order to [facility], There is an order on her chart but they put it for General Surgery instead of Dermatology. Please pend and sign new order. 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 [address] [phone] Clary Greenwood MD [address] [place], [place] 02/20/2025 9:30 AM EDT Office Visit [facility] [place] [address] [place] [address] [phone] Frida Londono NP [address] [facility] [address] [place] [address] Scheduled Referrals Name Type Priority Associated Diagnoses Order Schedule Ambulatory referral to Dermatology Outpatient Referral Routine Basal cell carcinoma (BCC) of scalp 1 Occurrences starting 12/13/2024 until 12/13/2025 documented as of this encounter Visit Diagnoses Diagnosis Basal cell carcinoma (BCC) of scalp- Primary documented in this encounter Care Teams Jumbo Operator Relationship Specialty Start Date End Date Clary Greenwood MD [address] [place] [address] PCP - General 11/30/1991 documented as of this encounter
--- OUTSIDE RECORDS SUMMARY | 2025-01-12 14:10 | XMS_ITS | Data Portability ---
Author Organization [place] [facility] [place] Address [address] [place] [address] Care Team Providers Care Government Operations Consultant Name Role Phone RONALD AMOS Primary Care Provider RONALD AMOS Referring Provider RONALD AMOS Primary Care Provider AMBREEN MARR Coal Cager Assessment Encounter Date Assessment Date Assessment LastModified by Organization Details LastModified Time 12/29/2023 12/29/2023 INTERIM HISTORY: The patient is 3-1/2 weeks status post total arthrodesis with cancellous bone allograft left wrist. She is doing well with therapy regaining range of motion for the fingers and thumb and forearm rotation. There are no complaints. EXAMINATION OF THE LEFT HAND AND WRIST: Skin he is intact. Scar unremarkable. Alignment excellent. Mild swelling. No tenderness, crepitus or gross motion throughout the carpus. Range of motion fingers and thumb good. Forearm pronation full. Supination good measuring approximately 60 degrees. Neurovascular status is intact. RADIOGRAPHS: Radiographs of the left wrist are obtained today. PA, lateral and oblique projections reveal satisfactory alignment hand and wrist. Satisfactory position internal hardware. Early consolidation of the arthrodesis. DISCUSSION: The patient is doing well. She will continue with the wrist splint for protection and continue with her therapy program for edema control, scar management and range of motion. Activities remain restricted to allow further healing of the arthrodesis. She will return for reevaluation in 4 weeks. Not available 12/29/2023 10:48:44 01/26/2024 01/26/2024 INTERIM HISTORY: The patient is 7-1/2 weeks status post total arthrodesis with cancellous bone allograft left wrist. She is doing well and progressing nicely with therapy. There are no complaints. EXAMINATION OF THE LEFT HAND AND WRIST: Skin is intact. Scar unremarkable. No tenderness or hypersensitivity. Alignment hand and wrist satisfactory. No tenderness, crepitus or gross motion throughout the carpus. Full range of motion fingers and thumb. Full forearm rotation. Neurovascular status is intact. RADIOGRAPHS: Radiographs of the left wrist are obtained today. PA, lateral and oblique projections reveal satisfactory alignment and healing of the arthrodesis. Satisfactory position internal hardware. DISCUSSION: The patient is doing well. She will continue with therapy program. Activities are restricted to allow further healing. She will use only Tylenol instead of nonsteroidal anti-inflammatori es for any mild postoperative discomfort. She will continue with the vitamin D3 as well. She will return for reevaluation in 6 weeks. Not available 01/26/2024 12:44:50 03/08/2024 03/08/2024 INTERIM HISTORY: The patient is 13-1/2 weeks status post total arthrodesis with cancellous bone allograft left wrist. She is progressing nicely with therapy. There are no complaints. EXAMINATION OF THE LEFT HAND AND WRIST: Skin is intact. Scar unremarkable. No tenderness associated with the internal hardware. Internal hardware stable. Alignment satisfactory. No tenderness, crepitus or gross motion throughout the carpus. Range of motion fingers and thumb full. Forearm rotation full. Neurovascular status is intact. RADIOGRAPHS: Radiographs of the left wrist are obtained today. PA, lateral and oblique projections reveal satisfactory healing arthrodesis. Satisfactory position internal hardware. DISCUSSION: The patient is doing well. The arthrodesis appears well-healed. The patient is instructed to resume her normal activities as tolerated. She will continue with therapy for a few more sessions. She is released to return to work without restrictions effective March 22, 2024. She will return for reevaluation in 3 months. Not available 03/08/2024 12:19:00 05/10/2024 05/10/2024 HPI : Patient is here for almost 2-year follow-up from right total knee replacement. She states she had a fall about 1 year ago which resulted in increased pain around the right knee. She has been watching it. She was having some wrist surgery. After she recovered from that she noticed the knee pain again. The pain is not severe but it is more significant compared to her left knee which also has a knee replacement and is doing well. The pain is there with certain movements. Physical Exam : Patient is well nourished, well-developed, in no acute distress, with appropriate mood and affect. The patient is oriented to time, place, and person. Respirations are even and unlabored. There is no inguinal adenopathy. Examination of the contralateral knee shows normal range of motion, strength, no tenderness, and well-healed skin incision. The affected limb is well-perfused, with well healed skin incision. The patient demonstrates good knee motion, stability, and strength. The knee moves from 0-125 degrees. The alignment of the knee is neutral. No pain with palpation or patellar compression. Muscle strength is normal. Pedal pulses are palpable. Hip examination, including flexion and internal rotation, was negative in that groin pain was not produced. Assessment/Plan : Patient is 2 years from right total knee replacement. She had a fall last year, which resulted in some mildly persistent pain. Exam, imaging, and history do not show any signs of implant related issues including loosening, malposition, instability, periprosthetic fracture, or infection. I would like her to get ESR and CRP. If these are negative then I would recommend a course of oral steroid. We will call her with these results. Not available 05/10/2024 14:31:33 05/17/2024 05/17/2024 INTERIM HISTORY: The patient is 23-1/2 weeks status post total arthrodesis with cancellous bone allograft left wrist. She is doing extremely well with the wrist. There are no complaints. EXAMINATION OF THE LEFT WRIST AND HAND: Skin is intact. Scar unremarkable. No swelling. Alignment excellent. No tenderness, crepitus or gross motion throughout the wrist and carpus. No tenderness associated with the internal hardware. Range of motion fingers and thumb full. Forearm rotation full. No tenderness or instability at the DRUJ. Neurovascular status is intact. RADIOGRAPHS: Radiographs of the left wrist are obtained today. PA, lateral and oblique projections reveal solid healing arthrodesis wrist. Good position internal hardware. DISCUSSION: The patient is doing extremely well. She has resumed her normal activities. No complaints with the wrist. She is not scheduled for any reevaluation. If she develops any problems, concerns or questions, she will contact the office. Not available 05/17/2024 14:26:48 Plan of Treatment Reminders Order Date Submit Date Provider Last Modified By Organization Details Last Modified Time Details Appointments None recorded. Lab ESR (erythrocyt e sedimentati on rate), blood - Joint pain status post arthroplast y, evaluate for joint infection 2023 024 [email or web address] Not available 09:56:01 C-reactive protein, quantitativ e, serum or plasma - Joint pain status post arthroplast y, evaluate for joint infection 2023 024 SHAMAR Not available 09:08:42 Referral None recorded. Procedures None recorded. Surgeries None recorded. Imaging XR, wrist, 3 or more view 2023 024 [email or web address] [facility], [address], [place], [address], 4 16:12:00 XR, knee, 3 view 2023 024 [email or web address] [facility], [address], [place], [address], 4 15:17:19 XR, wrist, 3 or more view 2023 024 [email or web address] [facility], [address], [place], [address], 4 12:20:33 XR, wrist, 3 or more view 2023 024 [email or web address] [facility], [address], [place], [address], 4 16:59:11 XR, wrist, 3 or more view 2023 024 [email or web address] [facility], [address], [place], [address], 4 15:25:17 Medication Orders None recorded. Patient TargetsNo targets recorded. Patient Instructions Encounter Date Encounter Id Patient Instructions Last Modified By Organization Details Last Modified Time 05/10/2024 [id number] AP, lateral, and patellar radiographs of the right knee taken today demonstrate satisfactory position and alignment of components following right total knee replacement. Not available 05/10/2024 14:32:01 Reason for Referral None Reported. Results Created Date Observation Date Name Description Value Unit Range Abnormal Flag Note LastModifiedBy Organization Detail LastModifiedTime Result Notes None recorded. Problems Name Problem SNOMED Code Status Onset Date Resolution Date Notes Provider Name and Address Organization Details Recorded Time Localized, primary osteoarthri tis of the wrist 732283093 Active 2022 Rory Mendez MD [address], [place], [address], [place] [facility] 3 08:49:47 Pain of right knee joint 1126510904086 00 Active 2023 Gonzalo Pope MD [address], [place], [address], [place] [facility], [facility] 4 14:29:35 Problem Notes None recorded. Procedures Surgical History Date Name Laterality Status Provider Name and Address Organization Details Recorded Time 4 Splint Short Arm 11+ completed Scott Ware [place] - [facility] 12/08/2023 14:43:09 3 ARB wrist/elbow cortisone injection completed Rory Mendez MD [address], [place], [address], [place] [facility] 09/29/2023 14:34:59 3 ARB wrist/elbow cortisone injection completed Rory Mendez MD [address], [place], [address], [place] [facility] 06/10/2023 08:55:58 Imaging Results None recorded. Procedure Notes None recorded. Medical Equipment None Reported. Allergies Allergen ID Allergen Name Allergen Category Reaction Reaction Severity Criticality Documentation Date Start Date Code Code System Note Provider Name and Address Organization Details Recorded Time 67362 hydrochlo rothiazid e medicatio n Not available Not available Not available 10/27/2023 5487 RxNorm Scott Wheat null, [place] [facility] 3 14:09:13 24855 hydrocodo ne Not available Not available Not available Not available 10/27/2023 5489 RxNorm Scott Wheat null, [place] [facility] 3 14:09:31 42158 Levophed medicatio n Not available Not available Not available 10/27/2023 13071 9 RxNorm Scott Wheat null, [place] [facility] 3 14:12:08 90773 cephalexi n medicatio n Not available Not available Not available 10/27/2023 2231 RxNorm Scott Wheat null, [place] [facility] 3 14:12:17 18434 sulfameth oxazole / trimethop rim medicatio n Not available Not available Not available 10/27/2023 27653 RxNorm Scott Wheat null, [place] [facility] 3 14:12:58 49240 Augmentin medicatio n Not available Not available Not available 10/27/2023 95040 2 RxNorm Scott Wheat null, [place] [facility] 3 14:13:05 15460 meperidin e medicatio n Not available Not available Not available 10/27/2023 6754 RxNorm Scott Wheat null, [place] [facility] 3 14:13:15 59333 amoxicill in medicatio n Not available Not available Not available 10/27/2023 723 RxNorm Scott Wheat null, [place] [facility] 3 14:13:20 51661 clavulani c acid Not available Not available Not available Not available 10/27/2023 65192 RxNorm Scott Wheat null, [place] [facility] 3 14:13:29 28844 codeine medicatio n itching Not available high 10/27/2023 2670 RxNorm Frida Martins null, [place] [facility] 3 15:02:55 85068 tramadol medicatio n itching Not available high 12/09/2023 99935 RxNorm Frida Martins null, [place] [facility] 4 13:15:41 Medications Name Sig Start Date Stop Date Status Note LastModified by Organization Details LastModified Time furosemide 40 mg tablet TAKE 1 TABLET BY MOUTH EVERY DAY 09/29 completed Not Available Not Available Not Available prednisone 10 mg tablet 09/29 completed Not Available Not Available Not Available meloxicam 15 mg tablet TAKE 1 TABLET BY MOUTH EVERY DAY 09/29 completed Not Available Not Available Not Available clindamycin HCl 150 mg capsule TAKE 1 CAPSULE BY MOUTH EVERY 6 HOURS FOR 3 DAYS 03/08 completed Not Available Not Available Not Available amlodipine 5 mg tablet TAKE 1 TABLET BY MOUTH EVERY DAY IN THE EVENING active Not Available Not Available No t Available tramadol 50 mg tablet TAKE 1 TABLET BY MOUTH EVERY 6 HOURS NEEDED FOR PAIN 03/08 completed Not Available Not Available Not Available spironolact one 25 mg tablet TAKE 1 TABLET BY MOUTH EVERY DAY active Not Available Not Available No t Available ondansetron 8 mg disintegrat ing tablet 09/29 completed Not Available Not Available Not Available hydromorpho ne 2 mg tablet TAKE 1 TABLET BY MOUTH EVERY 6 HOURS NEEDED FOR PAIN. 09/29 completed Not Available Not Available Not Available methocarbam ol 750 mg tablet TAKE 1 TABLET BY MOUTH 4 TIMES A DAY NEEDED FOR 14 DAYS 09/29 completed Not Available Not Available Not Available Kenalog 10 mg/mL suspension for injection Take 2 mL by injection route. 10/27 completed Not Available Not Available Not Available amlodipine 10 mg tablet TAKE 1 TABLET BY MOUTH EVERY DAY 09/29 completed Not Available Not Available Not Available pantoprazol e 40 mg tablet,palomo yed release 09/29 completed Not Available Not Available Not Available gabapentin 300 mg capsule TAKE 1 CAPSULE BY MOUTH EVERYDAY AT BEDTIME 09/29 completed Not Available Not Available Not Available furosemide 20 mg tablet TAKE 1 TABLET BY MOUTH EVERY DAY active Not Available Not Available No t Available ibuprofen 600 mg tablet TAKE 1 TABLET BY MOUTH EVERY 8 HOURS NEEDED FOR PAIN FOR UP TO 30 DAYS. 05/10 completed Not Available Not Available Not Available lisinopril 40 mg tablet TAKE 1 TABLET BY MOUTH EVERY DAY 10/27 completed Not Available Not Available Not Available losartan 100 mg tablet TAKE 1 TABLET BY MOUTH EVERY DAY active Not Available Not Available No t Available fluticasone propionate 50 mcg/actuati on nasal spray,suspe nsion USE 1 SPRAY IN EACH NOSTRIL TWICE A DAY active Not Available Not Available No t Available loratadine 10 mg tablet TAKE 1 TABLET BY MOUTH EVERY DAY active Not Available Not Available No t Available furosemide active Not Available Not Av ailable Not Available hydrochloro thiazide 12.5 mg tablet TAKE 1 TABLET BY MOUTH EVERY DAY 03/08 completed Not Available Not Available Not Available lidocaine (PF) 100 mg/5 mL (2 %) injection syringe Take 1 mL by injection route. 10/27 completed Not Available Not Available Not Available Vitals Date Recorded Body height Body mass index (BMI) Body weight Provider Name and Address Organization Details Last Updated DateTime 03/08/2024 162.56 cm 31.8 kg/m2 21451.59 g Scott Ware [place] - [facility] 03/08/2024 09:03:55 Date Recorded Body height Provider Name an d Address Organization Details Last Updated DateTime 05/10/2024 162.56 cm Nina Alessandro [facility] 05/10/2024 13:57:32 Social History Question Answer Notes LastModified by Organizat ion Details LastModified Time Tobacco Smoking Status Never Smoker Scott Ware null, [place] [facility] 06/09/2023 14:22:49 What Is Your Level Of Alcohol Consumption? None [email or web address] Information not available 06/09/2023 Sex: Unknown Functional Status None recorded. Mental Status None recorded. Family History Nothing Reported. Medical History Condition Response Rheumatoid Arthritis Y Hypertension Y Osteoporosis Y Gynecological HistoryNo gynecological history recorded. Obstetrics History GPAL:G 0 P 0 0 0 0 Past Encounters Encounter ID Performer Location Encounter Start Date Encounter Closed Date Diagnosis/Indication Diagnosis SNOMED-CT Code Diagnosis ICD10 Code Diagnosis Note MD RICKY Shi [address] [address] 06/09/2023 14:15:27 06/09/2023 15:21:34 Pain of left wrist 6349163467 84778 M25.532 Localized, primary osteoarthritis of the wrist 293469538 M19.039 Left wrist radioscaph oid joint [id number] MD RICKY Briggs [address] [facility] [place] [address] 07/02/2023 14:22:33 07/02/2023 14:50:08 History of right total knee replacement 2145508869 739660 Z96.651 Aftercare 475355697 Z47. 1 [id number] MD RICKY Shi [address] [address] 07/07/2023 14:17:06 07/07/2023 14:36:03 Localized, primary osteoarthritis of the wrist 630019652 M19.039 Left wrist radioscaph oid joint [id number] MD RICKY Shi [address] [address] 09/29/2023 13:06:12 09/29/2023 14:31:32 Localized, primary osteoarthritis of the wrist 299511120 M19.039 Left wrist radioscaph oid joint [id number] MD RICKY Shi [address] [address] 10/27/2023 13:35:31 10/27/2023 14:46:38 Localized, primary osteoarthritis of the wrist 025802986 M19.039 Left wrist radioscaph oid joint [id number] MD RICKY Shi [address] [address] 12/08/2023 13:45:57 12/08/2023 14:48:58 Localized, primary osteoarthritis of the wrist 003961498 M19.039 Left wrist radioscaph oid joint [id number] MD GADIEL [address] [address] 12/17/2023 12:51:11 12/17/2023 13:36:01 Postoperative visit 181033714 Z48.89 [id number] MD RICKY Shi [address] [address] 12/29/2023 09:58:19 12/29/2023 10:30:35 Pain of left wrist 9642370501 67900 M25.532 Localized, primary osteoarthritis of the wrist 187659883 M19.039 Left wrist radioscaph oid joint [id number] MD RICKY Shi [address] [address] 01/26/2024 10:54:58 01/26/2024 11:23:45 Localized, primary osteoarthritis of the wrist 344870277 M19.039 Left wrist radioscaph oid joint [id number] MD RICKY Shi [address] [address] 03/08/2024 08:52:44 03/08/2024 09:23:30 Pain of left wrist 7648381651 85885 M25.532 Additional diagnosis detail: Pain in left wrist Localized, primary osteoarthritis of the wrist 637812853 M19.039 Left wrist radioscaph oid joint [id number] MD RICKY Briggs [address] [place] [address] 05/10/2024 13:29:20 05/10/2024 14:25:35 History of right total knee replacement 8586102927 396312 Z96.651 Additional diagnosis detail: History of total right knee replacemen t Surgical follow-up 52878 4000 Z47.1 Z96.651 Additional diagnosis detail: Aftercare following right knee joint replacemen t surgery Pain of ri ght knee joint 4369938374 33150 M25.561 Additional diagnosis detail: Pain, joint, knee, right [id number] MD RICKY Shi [address] [address] 05/17/2024 13:47:43 05/17/2024 14:25:41 Pain of left wrist 2984872757 33813 M25.532 Additional diagnosis detail: Pain in left wrist Localized, primary osteoarthritis of the wrist 348625196 M19.039 Left wrist radioscaph oid joint Health Concerns Section Related Observation LastModified by Organization Detai ls LastModified Time None Recorded Concern Status LastModified by Organization Details LastModified Time None Recorded Advance Directives Directive None Recorded Payers Encounter Date Sequence Insurance Name Policy Number Policy Verdugo Covered Member ID Verdugo Member ID Guarantor Name 12/29/2023 1 [place]: [place] Alethea A Shabbir [id number] 2 Alethea Shabbir 12/29/2023 2 [place] [facility] [employer] 111 Alethea Cristy Shabbir [id number] Alethea Shabbir 01/26/2024 1 [place] Alethea A Shabbir [id number] 2 Alethea Shabbir 01/26/2024 2 [place] [facility] EMPLOYEE PROGRAM 111 Alethea Cristy Shabbir [id number] Alethea Shabbir 03/08/2024 1 [place] Alethea Cristy Shabbir [id number] 2 Alethea Shabbir 03/08/2024 2 [place] [facility] [employer] 111 Alethea A Shabbir [id number] Alethea Shabbir 05/10/2024 1 [place] Alethea Cristy Shabbir [id number] 2 Alethea Shabbir 05/10/2024 2 [place] [facility] [employer] EM[employer] 111 Alethea Cristy Shabbir [id number] Alethea Shabbir 05/17/2024 1 [place]: [place] Alethea Cristy Shabbir [id number] 2 Alethea Shabbir 05/17/2024 2 [place] [facility] [employer] 111 Alethea A Shabbir [id number] Alethea Shabbir OBGyn Episode No OBEpisode recorded.
--- OUTSIDE RECORDS SUMMARY | 2025-01-12 14:10 | XMS_ITS ---
Author Name [facility] Organization Unknown History of Medication Use Medication Directions Dispensed Refills Start Date End Date Stat fexofenadine (EBONI) 180 mg tablet Take 1 tablet (180 mg total) by mouth 1 (one) time each day. 06/19/2024 active atorvastatin (LIPITOR) 80 mg tablet Take 1 tablet (80 mg total) by mouth at bedtime. 11/07/2024 active calcium carbonate-vitamin D 500 mg-5 mcg (200 unit) per tablet Take 1 tablet by mouth daily. active furosemide (LASIX) 20 mg tablet Take 1 tablet by mouth daily. 04/13/2016 active aspirin 81 mg EC tablet Take 1 tablet (81 mg total) by mouth 1 (one) time each day. active loratadine (CLARITIN) 10 mg tablet Take 10 mg by mouth every night at bedtime. 11/10/2021 12/21/19 25 aborted losartan (COZAAR) 100 mg tablet Take 1 tablet (100 mg total) by mouth 1 (one) time each day. 11/07/2024 active acetaminophen (TYLENOL) 500 mg tablet Sig - Route: Take 1,000 mg by mouth every 6 hours as needed. - Oral Class: Historic active clopidogreL (PLAVIX) 75 mg tablet Take 1 tablet (75 mg total) by mouth 1 (one) time each day. 11/07/2024 12/21/19 25 aborted vitamin B complex (VITAMINS B COMPLEX ORAL) Take by mouth. active spironolactone (ALDACTONE) 25 mg tablet TAKE 1 TABLET BY MOUTH AT BEDTIME. 08/26/2024 active fluticasone propionate (FLONASE) 50 mcg/actuation nasal spray spray/apply 1 spray in each nostril 2 (two) times a day. 10/31/2021 active amLODIPine (NORVASC) 10 mg tablet Take 1 Tablet by mouth at bedtime. 08/30/2024 active Kenalog 10 mg/mL suspension for injection active pantoprazole 40 mg tablet,delayed release 09/29 23 completed amlodipine 5 mg tablet TAKE 1 TABLET BY MOUTH EVERY DAY IN THE EVENING active ibuprofen 800 MG tablet Take by mouth every 8 (eight) hours as needed for pain. active furosemide 20 mg tablet TAKE 1 TABLET BY MOUTH EVERY DAY active prednisone 10 mg tablet active lidocaine (PF) 100 mg/5 mL (2 %) injection syringe Take 1 mL by injection route. 06/09/2023 10/27/20 23 completed amlodipine 10 mg tablet TAKE 1 TABLET BY MOUTH EVERY DAY active fluticasone propionate 50 mcg/actuation nasal spray,suspension USE 1 SPRAY IN EACH NOSTRIL TWICE A DAY active lisinopril 40 mg tablet TAKE 1 TABLET BY MOUTH EVERY DAY active Multiple Vitamin (MULTI-VITAMIN DAILY PO) Take 1 tablet by mouth daily. active meloxicam 15 mg tablet TAKE 1 TABLET BY MOUTH EVERY DAY active furosemide 20 mg tablet TAKE 1 TABLET BY MOUTH EVERY DAY 09/29/20 23 active gabapentin 300 mg capsule TAKE 1 CAPSULE BY MOUTH EVERYDAY AT BEDTIME active hydrochlorothiazide 12.5 mg tablet TAKE 1 TABLET BY MOUTH EVERY DAY active losartan 100 mg tablet TAKE 1 TABLET BY MOUTH EVERY DAY active furosemide (LASIX) 40 MG tablet Take 1 tablet (40 mg total) by mouth daily. 02/24/2023 11/30/19 24 aborted amlodipine 5 mg tablet TAKE 1 TABLET BY MOUTH EVERY DAY IN THE EVENING active loratadine (CLARITIN) 10 MG tablet Take 1 tablet (10 mg total) by mouth every night at bedtime. 11/10/2021 active hydromorphone 2 mg tablet TAKE 1 TABLET BY MOUTH EVERY 6 HOURS NEEDED FOR PAIN. active spironolactone 25 mg tablet TAKE 1 TABLET BY MOUTH EVERY DAY active pantoprazole 40 mg tablet,delayed release ac tive Allergies Allergen Reaction Severity Comment Documented Date Source Statu s TRAMADOL itching [facility] CODEINE itching [facility] AUGMENTIN [facility] LEVOPHED (BITARTRATE) [facility] Problems Problem Status Onset Date Problem Type Date of Resolution Source Venous (peripheral) insufficiency active ProblemAct [facility] [place] (stress urinary incontinence, female) active ProblemAct [facility] Osteopenia active ProblemAct [facility] DJD (degenerative joint disease) of cervical spine active ProblemAct [facility] Prediabetes active ProblemAct [facility] Headache active ProblemAct [facility] Medial meniscus tear active ProblemAct [facility] Osteoarthritis of both knees active ProblemAct [facility] Allergic rhinitis active ProblemAct [facility] Incontinence of feces active ProblemAct [facility] Bilateral leg edema active EncounterDiagnosisAc t [facility] Obesity (BMI 30.0-34.9) active ProblemAct [facility] Essential hypertension, benign active ProblemAct [facility] Severe obesity (BMI 35.0-35.9 with comorbidity) active ProblemAct [facility] Abnormal EKG active ProblemAct [facility]NEM[facility] Mixed hyperlipidemia active EncounterDiagnosisA ct [facility]NEMG Pure hypercholesterolemia active EncounterDiagnosisAct [facility] Hyperlipidemia active ProblemAct [facility] Total knee replacement status active ProblemAct [facility] Pulmonary nodules/lesions, multiple active ProblemAct [facility] [place] (dyspnea on exertion) active ProblemAct [facility] Severe obesity (BMI 35.0-35.9 with comorbidity) active ProblemAct [facility] Retinal vein occlusion active ProblemAct [facility] Stroke (cerebrum) active ProblemAct [facility] Sciatica active ProblemAct [facility] 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 ProblemAct [facility]THNEM[facility] Localized, primary osteoarthritis of the wrist active ProblemAct E[facility]ON[facility] Immunizations Vaccine Date Source Lot Number Status Zoster recombinant (Shingrix ) 19yo and older 03/04/2022 [facility] [id number] completed Influenza, Unspecified 09/15/2020 [facility] co mpleted Influenza, Unspecified 09/15/2013 [facility] co mpleted Influenza, Unspecified 01/30/2015 [facility] co mpleted Influenza trivalent, 0.5mL ( Fluzone High-dose) 65yo and older 08/22/2023 [facility] comple shila Influenza, Unspecified 08/23/2019 [facility] co mpleted Influenza, Unspecified 08/26/2021 [facility] co mpleted Pneumococcal conjugate 13 va lent (Prevnar 13, PCV13) 2mo and older 11/04/2021 [facility] [id number] [facility] SARS-CoV-2 COVID-19, mRNA, LNP-S, preservative free 09/26/2021 [facility] completed Zoster recombinant (Shingrix ) 19yo and older 11/28/2022 [facility]_ELIOSFRJOSE M [id number] completed TD, Adsorbed, Preservative Free 08/24/2022 [facility] A132 A1 completed RSV, bivalent, protein subun it RSVpreF, 0.5mL, Preservative Free (ABRYSVO) 60yo and older or 32 through 36 wks of 07/20/2023 [facility] [id number] completed Pneumococcal polysaccharide 23 valent (Pneumovax 23) 2yo and older 10/28/2012 [facility] [id number] com pleted Pneumococcal conjugate 20 va lent (Prevnar 20, PCV 20) 2mo and older 11/28/2022 [facility] [id number] comple [facility] SARS-CoV-2 COVID-19, mRNA, LNP-S, preservative free 04/06/2022 [facility] completed Influenza, Unspecified 12/27/2009 [facility] co mpleted Influenza trivalent, 0.5mL ( Fluad) 65yo and older 07/25/2024 [facility] [id number] completed Pneumococcal, Unspecified 10/27/2012 [facility] completed Influenza, Unspecified 11/26/2016 [facility] co mpleted Zoster Live 03/04/2022 [facility] completed Influenza, Unspecified 11/24/2018 [facility] co mpleted Covid-19 (Pfizer) Dilution Required 01/27/2021 [facility]THNEM[facility] [id number] completed Influenza, Unspecified 01/04/2012 [facility] co mpleted Td Tetanus diptheria (Tdvax) 7yo and older 03/22/2003 [facility]_T HSFRAN completed Tdap Tetanus diptheria acell ular pertussis (Boostrix; Adacel) 7yo and older 01/04/2012 [facility] [id number] completed Influenza, Unspecified 08/24/2022 [facility] co mpleted Td Tetanus diptheria (Tdvax) 7yo and older 08/24/2022 [facility] [id number] completed Covid-19 (Pfizer) Dilution Required 02/27/2021 [facility] [id number] completed
--- OUTSIDE RECORDS SUMMARY | 2025-01-12 14:10 | XMS_ITS | Encounter Summary ---
Author Organization [facility] Address [address] [place] [address] Care Team Providers Care Composite Boat Builder Name Role Phone Clary Greenwood MD Primary Care Provider [phone] Encounter Details Date Type Department Care Team (Late Contact Info) Description 10/25/[address] [facility] - Main Lab [address] [facility] [place] [address] Jose Francisco Morley MD [address] [place] [address] Cerebral infarction, unspecified (CMS/HCC); Essential (primary) hypertension Social History Tobacco Use [...] 01/24/2025 2:00 PM EST Office Visit Urogynecology [address] [phone] Sarah Carballo MD [address] [facility] [address] [place] [address] 02/13/2025 11:00 AM EDT Office Visit Adult Medicine [facility] [address] [place] [address] Clary Greenwood MD [address] [place], [place] 02/20/2025 9:30 AM EDT Office Visit [facility] [place] [address] [facility] [address] [place] [address] Frida Londono NP 19 [facility] [address] [place] [address] documented as of this encounter Procedures Procedure Name Priority Date/Time Associated Diagnosis Comments COMPLETE BLOOD COUNT Routine 10/26/2024 5:19 AM EST Cerebral infarction, unspecified (CMS/HCC) Essential (primary) hypertension BASIC METABOLIC PANEL Routine 10/26/2024 5:19 AM EST Cerebral infarction, unspecified (CMS/HCC) Essential (primary) hypertension documented in this encounter Results * (ABNORMAL) Basic metabolic panel (10/26/2024 5:19 AM EST) Sodium 144 133 - 145 mmol/L LAB CHEMISTRY METHOD 10/26/2024 9:07 AM [facility] Potassium 5.0 3.5 - 5.5 mmol/L LAB CHEMISTRY METHOD 10/26/2024 9:07 AM [facility] Chloride 111(H) 96 - 110 mmol/L LAB CHEMISTRY METHOD 10/26/2024 9:07 AM [facility] CO2 29 21 - 32 mmol/L LAB CHEMISTRY METHOD 10/26/2024 9:07 AM [facility] Anion Gap 4 3 - 11 LAB CHEMISTRY METHOD 10/26/2024 9:07 AM [facility] Glucose 102(H) 70 - 100 mg/dL LAB CHEMISTRY METHOD 10/26/2024 9:07 AM EST [facility] BUN 21 5 - 25 mg/dL LAB CHEMISTRY METHOD 10/26/2024 9:07 AM [facility] Creatinine 0.84 0.50 - 1.10 mg/dL LAB CHEMISTRY METHOD 10/26/2024 9:07 AM [facility] eGFR 76 >=60 mL/min/1. 73m2 LAB CHEMISTRY METHOD 10/26/2024 9:07 AM [facility] Comment:Calculation based on the??Chronic Kidney Disease Epidemiology Collaboration (CKD-EPI) equation refit??without adjustment for race. BUN/Creatinine Ratio 25.0 LAB CHEMISTRY METHOD 10/26/2024 9:07 AM [facility] Calcium 9.4 8.5 - 10.5 mg/dL LAB CHEMISTRY METHOD 10/26/2024 9:07 AM [facility] Blood Venous blood specimen / Unknown Venipuncture / Unknown 10/26/2024 5:19 AM EST 10/26/2024 8:15 AM EST us Jose Francisco Morley MD LAB BLOOD ORDERABLES Final Resu lt [facility] [address] [place] [address], [place] [phone] * (ABNORMAL) Complete blood count (10/26/2024 5:19 AM EST) WBC 6.2 4.8 - 10.8 K/mcL LAB HEMETOLOGY METHOD 10/26/2024 8:38 AM [facility] RBC 3.70(L) 3.80 - 4.80 M/mcL LAB HEMETOLOGY METHOD 10/26/2024 8:38 AM [facility] Hemoglobin 11.6 11.5 - 16.0 g/dL LAB HEMETOLOGY METHOD 10/26/2024 8:38 AM [facility] Hematocrit 35.4 35.0 - 47.0 % LAB HEMETOLOGY METHOD 10/26/2024 8:38 AM [facility] MCV 96.5 79.0 - 98.0 FL LAB HEMETOLOGY METHOD 10/26/2024 8:38 AM [facility] MCH 31.6 27.0 - 32.0 pcg LAB HEMETOLOGY METHOD 10/26/2024 8:38 AM [facility] MCHC 32.8 32.0 - 37.0 g/dL LAB HEMETOLOGY METHOD 10/26/2024 8:38 AM [facility] RDW 13.6 11.0 - 15.0 % LAB HEMETOLOGY METHOD 10/26/2024 8:38 AM [facility] Platelets 217 130 - 400 K/mcL LAB HEMETOLOGY METHOD 10/26/2024 8:38 AM [facility] MPV 9.9 7.0 - 11.0 FL LAB HEMETOLOGY METHOD 10/26/2024 8:38 AM [facility] NRBC 0.0 <1.0 % LAB HEMETOLOGY METHOD 10/26/2024 8:38 AM [facility] NRBC Absolute 0.00 <0.10 K/mcL LAB HEMETOLOGY METHOD 10/26/2024 8:38 AM [facility] Blood Venous blood specimen / Unknown Venipuncture / Unknown 10/26/2024 5:19 AM EST 10/26/2024 8:15 AM EST us Jose Francisco Morley MD LAB BLOOD ORDERABLES Final Resu lt [facility] [address] [place] [address], documented in this encounter Visit Diagnoses Diagnosis Cerebral infarction, unspecified (CMS/HCC) Essential (primary) hypertension Unspecified essential hypertension documented in this encounter Care Teams Composite Boat Builder Relationship Specialty Start Date End Date Clary Greenwood MD [address] [place] [address] PCP - General 11/30/1992 documented as of this encounter
--- OUTSIDE RECORDS SUMMARY | 2025-01-12 14:10 | XMS_ITS | Encounter Summary ---
Author Organization [facility] Address [address] [place] [address] Care Team Providers Care Ballet Master/Mistress Name Role Phone Clary Greenwood MD Primary Care Provider Encounter Details Date Type Department Care Team (Late Contact Info) Description 10/29/2024 Lab Requisition [facility] - Main Lab 299 [facility] [place] [address] Jose Francisco Morley MD [address] [place] [address] Cerebral infarction, unspecified (CMS/HCC); Essential [...] 01/24/2025 2:00 PM EST Office Visit Urogynecology [address] [phone] Sarah Carballo MD 580 [facility] [address] [place] [address] 02/13/2025 11:00 AM EDT Office Visit Adult Medicine [facility] [address] [place] [address] Clary Greenwood MD [address] [place], [place] 02/20/2025 9:30 AM EDT Office Visit [facility] - [place] 16[address] [facility] [address] [place] [address] Frida Londono NP 19 [facility] [address] [place] [address] documented as of this encounter Procedures Procedure Name Priority Date/Time Associated Diagnosis Comments COMPLETE BLOOD COUNT Routine 10/30/2024 5:24 AM EST Cerebral infarction, unspecified (CMS/HCC) Essential (primary) hypertension COMPREHENSIVE METABOLIC PANEL Routine 10/30/2024 5:24 AM EST Cerebral infarction, unspecified (CMS/HCC) Essential (primary) hypertension documented in this encounter Results * (ABNORMAL) Comprehensive metabolic panel (10/30/2024 5:24 AM EST) Sodium 142 133 - 145 mmol/L LAB CHEMISTRY METHOD 10/30/2024 10:15 AM [facility] Potassium 4.9 3.5 - 5.5 mmol/L LAB CHEMISTRY METHOD 10/30/2024 10:15 AM [facility] Chloride 109 96 - 110 mmol/L LAB CHEMISTRY METHOD 10/30/2024 10:15 AM [facility] CO2 28 21 - 32 mmol/L LAB CHEMISTRY METHOD 10/30/2024 10:15 AM [facility] Anion Gap 5 3 - 11 LAB CHEMISTRY METHOD 10/30/2024 10:15 AM [facility] Glucose 107(H) 70 - 100 mg/dL LAB CHEMISTRY METHOD 10/30/2024 10:15 AM [facility] BUN 17 5 - 25 mg/dL LAB CHEMISTRY METHOD 10/30/2024 10:15 AM [facility] Creatinine 0.66 0.50 - 1.10 mg/dL LAB CHEMISTRY METHOD 10/30/2024 10:15 AM [facility] eGFR 96 >=60 mL/min/1. 73m2 LAB CHEMISTRY METHOD 10/30/2024 10:15 AM [facility] Comment:Calculation based on the??Chronic Kidney Disease Epidemiology Collaboration (CKD-EPI) equation refit??without adjustment for race. BUN/Creatinine Ratio 25.8 LAB CHEMISTRY METHOD 10/30/2024 10:15 AM [facility] Calcium 9.0 8.5 - 10.5 mg/dL LAB CHEMISTRY METHOD 10/30/2024 10:15 AM [facility] AST (SGOT) 12 10 - 42 unit/L LAB CHEMISTRY METHOD 10/30/2024 10:15 AM [facility] ALT (SGPT) 24 10 - 60 unit/L LAB CHEMISTRY METHOD 10/30/2024 10:15 AM [facility] Alkaline Phosphatase 90 42 - 121 unit/L LAB CHEMISTRY METHOD 10/30/2024 10:15 AM [facility] Total Protein 5.8(L) 6.0 - 8.0 g/dL LAB CHEMISTRY METHOD 10/30/2024 10:15 AM [facility] Albumin 3.3 3.2 - 5.0 g/dL LAB CHEMISTRY METHOD 10/30/2024 10:15 AM [facility] Total Bilirubin 0.4 0.0 - 1.4 mg/dL LAB CHEMISTRY METHOD 10/30/2024 10:15 AM [facility] Blood Venous blood specimen / Unknown Venipuncture / Unknown 10/30/2024 5:24 AM EST 10/30/2024 9:25 AM EST Jose Francisco Morley MD LAB BLOOD ORDERABLES Final Resu lt [facility] [address] [place] [address], * (ABNORMAL) Complete blood count (10/30/2024 5:24 AM EST) WBC 5.9 4.8 - 10.8 K/mcL LAB HEMETOLOGY METHOD 10/30/2024 9:48 AM EST [facility] RBC 3.70(L) 3.80 - 4.80 M/mcL LAB HEMETOLOGY METHOD 10/30/2024 9:48 AM [facility] Hemoglobin 11.5 11.5 - 16.0 g/dL LAB HEMETOLOGY METHOD 10/30/2024 9:48 AM [facility] Hematocrit 35.5 35.0 - 47.0 % LAB HEMETOLOGY METHOD 10/30/2024 9:48 AM EST [facility] MCV 96.2 79.0 - 98.0 FL LAB HEMETOLOGY METHOD 10/30/2024 9:48 AM [facility] MCH 31.2 27.0 - 32.0 pcg LAB HEMETOLOGY METHOD 10/30/2024 9:48 AM [facility] MCHC 32.4 32.0 - 37.0 g/dL LAB HEMETOLOGY METHOD 10/30/2024 9:48 AM EST [facility] RDW 13.5 11.0 - 15.0 % LAB HEMETOLOGY METHOD 10/30/2024 9:48 AM [facility] Platelets 212 130 - 400 K/mcL LAB HEMETOLOGY METHOD 10/30/2024 9:48 AM [facility] MPV 9.9 7.0 - 11.0 FL LAB HEMETOLOGY METHOD 10/30/2024 9:48 AM [facility] NRBC 0.0 <1.0 % LAB HEMETOLOGY METHOD 10/30/2024 9:48 AM EST [facility] NRBC Absolute 0.00 <0.10 K/mcL LAB HEMETOLOGY METHOD 10/30/2024 9:48 AM EST [facility] Blood Venous blood specimen / Unknown Venipuncture / Unknown 10/30/2024 5:24 AM EST 10/30/2024 9:33 AM EST us Jose Francisco Morley MD LAB BLOOD ORDERABLES Final Resu lt [facility] [address] [place] [address], documented in this encounter Visit Diagnoses Diagnosis Cerebral infarction, unspecified (CMS/HCC) Essential (primary) hypertension Unspecified essential hypertension documented in this encounter Care Teams Ballet Master/Mistress Relationship Specialty Start Date End Date Clary Greenwood MD [address] [place] [address] PCP - General 11/30/1992 documented as of this encounter"
--- OUTSIDE RECORDS SUMMARY | 2025-01-12 14:10 | XMS_ITS | Clinical Summary ---
Author Organization [facility] Address [address] [place] [address] Care Team Providers Care Sales Representative Aircraft Name Role Phone Clary Greenwood MD Primary Care Provider [phone] Allergies Active Allergy Reactions Criticality Noted Date Comments Amoxicillin Diarrhea Low 10/13/2021 Amoxicillin-Pot Clavulanate Diarrhea Low 03/21/2015 Cephalexin Nausea And Vomiting,Other (See Comments) Low 10/29/2010 Other reaction(s): GI Upset ? Caused dizziness n/v Unsure if it was the keflex because was also ??on bactrim Clavulanic Acid Diarrhea,Other (See Comments) Low 10/13/2021 Hydrochlorothiazide Photosensitivity Low 10/12/2005 Hydrocodone Other (See Comments) Low 10/12/2005 paresthesias and sensation of bugs crawling Meperidine Other (See Comments) Low 03/25/2015 Other reaction(s): Headaches Dizziness, vomiting, and headache after demerol in 2003 colonoscopy. Oxycodone Itching Medium 01/26/2022 Sulfamethoxazole Other (See Comments) Low GI upset Sulfamethoxazole-Trimetho prim Nausea And Vomiting,Other (See Comments) Low 10/29/2010 Other reaction(s): GI Upset Dizziness and n/v Unsure if it was the bactrim because was also on keflex Trimethoprim Other (See Comments) Low 10/13/2021 Sulfa- Gi upset Medications Medication Sig Dispensed Refills Start Date End Date Status amLODIPine (NORVASC) tablet 5 mg Take 1 tablet (5 mg total) by mouth every evening. 0 10/21/2021 Active fluticasone (FLONASE) 50 MCG/ACT nasal spray spray/apply 1 spray in each nostril 2 (two) times a day. 0 10/31/2021 Active loratadine (CLARITIN) 10 MG tablet Take 1 tablet (10 mg total) by mouth every night at bedtime. 0 11/10/2021 Active calcium-vitamin D (OSCAL-500) 500-200 MG-UNIT per tablet Take 1 tablet by mouth daily. 0 Active Multiple Vitamin (MULTI-VITAMIN DAILY PO) Take 1 tablet by mouth daily. 0 Active ibuprofen 800 MG tablet Take by mouth every 8 (eight) hours as needed for pain. 0 Active aspirin EC 81 MG tablet Take 1 tablet (81 mg total) by mouth daily. 0 Active spironolactone (ALDACTONE) tablet 25 mg Take 1 tablet (25 mg total) by mouth daily. 0 Active TURMERIC CURCUMIN PO Take by mouth. 0 Active furosemide (LASIX) 20 MG tablet Take 1 tablet (20 mg total) by mouth daily. 0 Active losartan (COZAAR) 100 MG tabletIndications:Cecilia jared hypertension,Pure hypercholesterolemia, Bilateral leg edema,Other cough TAKE 1 TABLET BY MOUTH EVERY DAY 90 tablet 3 08/28/2024 Active Active Problems Problem Noted Date Diagnosed Date WESTFALL (dyspnea on exertion) 01/16/2022 Abnormal EKG 01/16/2022 Osteoarthritis of both knees 05/15/2020 Overview: L>R Severe obesity (BMI 35.0-35.9 with comorbidity) 06/07/2018 Neoplasm of uncertain behavior of conjunctiva Pulmonary nodules/lesions, multiple 09/12/2014 Medial meniscus tear 04/04/2014 Hyperlipidemia 11/09/2012 Retinal vein occlusion 01/04/2012 Overview: Left, laser treatment Incontinence of feces 02/12/2010 Overview: IMO update DJD (degenerative joint disease) of cervical spi ne 02/09/2008 Headache 09/13/2007 Allergic rhinitis 12/24/2006 Essential hypertension, benign 10/12/2005 Sciatica 10/12/2005 Overview: chronic Venous (peripheral) insufficiency 10/12/2005 Immunizations Name Administration Dates Next Due Covid-19 (Pfizer) Dilution Required 09/26/2021,0 02/27/2021,01/27/2021 Family History Medical History Relation Name Comments Hyperlipidemia Brother 3 Arthritis Brother 4 Diabetes Brother 4 Hypertension Brother 4 Coronary artery disease Father Diabetes Father Heart attack Father Hyperlipidemia Father Hypertension Father Stroke Father Brain cancer Maternal Grandfather Heart disease Maternal Grandmother Heart failure Maternal Grandmother Heart failure Mother Hyperlipidemia Mother Hypertension Mother Rheum arthritis Mother Heart attack Paternal Grandfather Ovarian cancer Paternal Grandmother Stomach cancer Paternal Grandmother Relation Name Status Comments Brother 1 (Age 61) injuries s udden trauma Brother 2 (Age 12) drown Brother 3 Alive Brother 4 Alive Father (Age 67) Passed fro m stroke Maternal Grandfather Maternal Grandmother (Age 84) Mother (Age 61) CHF Paternal Grandfather (Age 40) Paternal Grandmother Social History Tobacco Use Types Packs/Day Years Used Date Smoking Tobacco: Never Smokeless Tobacco: Never Tobacco Cessation:Counseling Given: Not Answered Alcohol Use Standard Drinks/Week Comments Yes 3 (1 standard drink = 0.6 oz pur e alcohol) Sex and Gender Information Value Date Recorded Sex Assigned at Female 01/02/2022 3:35 PM EST Gender Identity Female 01/02/2022 3:35 PM EST Sexual Orientation Choose not to disclose 2021 7:58 AM EDT Job Start Date Occupation Industry Not on file Not on file Not on file Last Filed Vital Signs Vital Sign Reading Time Taken Comments Blood Pressure 140/70 11/30/2023 11:04 AM EST Pulse 71 11/30/2023 11:04 AM EST Temperature 36.1 ??C (97 ??F) 02/24/2023 3:44 PM EDT Respiratory Rate 18 06/23/2022 8:12 AM EDT Oxygen Saturation 99% 11/30/2023 11:04 AM EST Inhaled Oxygen Concentration - - Weight 84.8 kg (187 lb) 11/30/2023 11:04 AM EST Height 157.5 cm (5' 2 ) 11/30/2023 11:04 AM EST Body Mass Index 34.2 11/30/2023 11:04 AM EST Plan of Treatment Health Maintenance Due Date Last Done Comments Hepatitis C Screening 1956 Depression Screening 1968 BMI Counseling 02/04/1974 Preventative Health Evaluation 02/04/1974 Colon Cancer Screening (Colonoscopy) 02/04/2001 Breast Cancer Screening (Mammogram) 02/04/2006 Fall Risk Assessment 02/04/2021 Osteoporosis Screening (DEXA Scan) 02/04/2021 COVID-19 Vaccine ( season) 2024 04/06/2022, 09/26/2021, 02/27/2021, Additional history exists Influenza Vaccine (#1) 2024 , 08/24/2022, 08/26/2021, Additional history exists RSV Adult > 60+ Yrs or (1 - 1-dose 75+ series) 02/04/2031 DTap / Tdap / Td (3 - Td or Tdap) 08/24/2032 08/24/2022, 01/04/2012 Pneumococcal Vaccine Completed 11/28/2022, 11/04/2021, 10/28/2012 Shingrix-Zoster Vaccine Completed 11/28/2022, 03/04 Hepatitis B Vaccines Aged Out No long er eligible based on patient's age to complete this topic RSV Ped < 20 months Aged Out No longe r eligible based on patient's age to complete this topic Medical Devices Implanted Type Area General Cleaner Device Identifier Shelf Expiration Date Model / Serial / Lot Cement Bone Surg Simplex Radiopq Stry-Howm [id number] [id number] - [id number] Implanted:Qty: 1 on 01/26/2022 by Gonzalo Pope MD at [facility] Left: Knee [employer] [id number] / / Cement Bone Surg Simplex Radiopq Stry-Howm [id number] 092 - [id number] Implanted:Qty: 1 on 01/26/2022 by Gonzalo Pope MD at [facility] Left: Knee [employer] [id number] / / Knee Bsplt Triathlon Ti Sz 4 Stry-Howm [id number] 543 - [id number] Implanted:Qty: 1 on 01/26/2022 by Gonzalo Pope MD at [facility] Left: Knee [employer] [id number] 10/27/2026 5536-B-400 / / [id number] Knee Ptla Asym Tritanium 32x10 Stry-Howm 5420-H-850-606 039 - [id number] Implanted:Qty: 1 on 01/26/2022 by Gonzalo Pope MD at [facility] Left: Knee [employer] [id number] 10/16/2026 5552-L-320 / / [id number] Knee Tib Insrt Cr-X3 [id number] Stry-Howm 6271-A-[id number] 525 - [id number] Implanted:Qty: 1 on 01/26/2022 by Gonzalo Pope MD at [facility] Left: Knee [employer] [id number] 02/10/2025 5530-G-411 / / [id number] Knee Fem Bsplt W Pa Stry-Howm 1715-J-[id number] 553 - [id number] Implanted:Qty: 1 on 01/26/2022 by Gonzalo Pope MD at [facility] Left: Knee [employer] [id number] 10/26/2026 5517-F-401 / / [id number] Tibial Bearing Insert Cs 10mm Stry-Howm 0243-[id number]-E-[id number] - [id number] Implanted:Qty: 1 on 06/22/2022 by Gonzalo Pope MD at [facility] Right: Knee [employer] [id number] 05/05/2027 5531-G-410 -E / / [id number] Knee Bsplt Triathlon Ti Sz 4 Stry-Howm 4617-G-[id number] 543 - [id number] Implanted:Qty: 1 on 06/22/2022 by Gonzalo Pope MD at [facility] Right: Knee [employer] [id number] 04/09/2027 5536-B-400 / / [id number] Knee Fem Bsplt W Pa Stry-Howm 8466-W-939-645 552 - [id number] Implanted:Qty: 1 on 06/22/2022 by Gonzalo Pope MD at [facility] Right: Knee [employer] [id number] 03/29/2027 5517-F-402 / / [id number] Knee Ptla Asym Tritanium 32x10 Stry-How 0984-Z-275-606 039 - [id number] Implanted:Qty: 1 on 06/22/2022 by Gonzalo Pope MD at [facility] Right: Knee [employer] [id number] 04/01/2027 5552-L-320 / / [id number] Explanted Type Area General Cleaner Device Identifier Shelf Expiration Date Model / Serial / Lot Tibial Bearing Insert Cs 10mm [employer] [id number]-[id number] - [id number] Explanted:Qty: 1 on 06/22/2022 by Gonzalo Pope MD at [facility] Right: Knee [employer] [id number] 05/04/2027 5531-G-410 -E / / [id number] Advance Directives For more information, please contact: [phone] Documents on File Type Date Recorded Patient Application Trainer Expl anation Advance Directive and Living Will 06/22/2022 7:44 AM Latest Code Status on File Code Status Date Activated Date Inactivated Comments Full Code 06/22/2022 12:43 PM 06/23/2022 6:58 PM This c ode status was ascertained in the following way: chart . Code Status History Code Status Date Activated Date Inactivated Comments Full Code 06/22/2022 7:51 AM 06/22/2022 12:43 PM This c ode status was ascertained in the following way: discussion with patient . Full Code 01/26/2022 12:55 PM 01/27/2022 7:47 PM This c ode status was ascertained in the following way: discussion with patient . Full Code 01/26/2022 6:59 AM 01/26/2022 12:55 PM This c ode status was ascertained in the following way: discussion with patient . Care Teams Sales Representative Aircraft Relationship Specialty Start Date End Date Clary Greenwood MD PCP - General Internal Medicine 12/01/21
--- OUTSIDE RECORDS SUMMARY | 2025-01-12 14:10 | XMS_ITS | Encounter Summary ---
Author Organization [facility] Address [address] [place] [address] Care Team Providers Care Orthopedic Cast Specialist Name Role Phone Clary Greenwood MD Primary Care Provider [phone] Encounter Details Date Type Department Care Team (Late Contact Info) Description 10/22/2024 Lab Requisition [facility] - Main Lab [address] [facility] [place] [place] [address] Jose Francisco Morley MD [address] [place] [phone] Essential (primary) hypertension Social History Tobacco Use [...] 01/24/2025 2:00 PM EST Office Visit Urogynecology [address] [phone] Sarah Carballo MD [address] [facility] [address] [place] [address] 02/13/2025 11:00 AM EDT Office Visit Adult Medicine [place] [address] [place] [phone] Clary Greenwood MD [address] [place], [place] 02/20/2025 9:30 AM EDT Office Visit [facility] - [place] [address] [facility] [address] [place] [phone] Frida Londono NP 19 [facility] [address] [place] [address] documented as of this encounter Procedures Procedure Name Priority Date/Time Associated Diagnosis Comments COMPLETE BLOOD COUNT Routine 10/22/2024 6:28 AM EST Essential (primary) hypertension COMPREHENSIVE METABOLIC PANEL Routine 10/22/2024 6:28 AM EST Essential (primary) hypertension documented in this encounter Results * (ABNORMAL) Comprehensive metabolic panel (10/22/2024 6:28 AM EST) Sodium 140 133 - 145 mmol/L LAB CHEMISTRY METHOD 10/22/2024 8:15 AM [facility] Potassium 4.4 3.5 - 5.5 mmol/L LAB CHEMISTRY METHOD 10/22/2024 8:15 AM [facility] Chloride 108 96 - 110 mmol/L LAB CHEMISTRY METHOD 10/22/2024 8:15 AM [facility] CO2 26 21 - 32 mmol/L LAB CHEMISTRY METHOD 10/22/2024 8:15 AM [facility] Anion Gap 6 3 - 11 LAB CHEMISTRY METHOD 10/22/2024 8:15 AM [facility] Glucose 111(H) 70 - 100 mg/dL LAB CHEMISTRY METHOD 10/22/2024 8:15 AM [facility] BUN 20 5 - 25 mg/dL LAB CHEMISTRY METHOD 10/22/2024 8:15 AM [facility] Creatinine 0.80 0.50 - 1.10 mg/dL LAB CHEMISTRY METHOD 10/22/2024 8:15 AM [facility] eGFR 80 >=60 mL/min/1. 73m2 LAB CHEMISTRY METHOD 10/22/2024 8:15 AM [facility] Comment:Calculation based on the??Chronic Kidney Disease Epidemiology Collaboration (CKD-EPI) equation refit??without adjustment for race. BUN/Creatinine Ratio 25.0 LAB CHEMISTRY METHOD 10/22/2024 8:15 AM [facility] Calcium 9.1 8.5 - 10.5 mg/dL LAB CHEMISTRY METHOD 10/22/2024 8:15 AM [facility] AST (SGOT) 34 10 - 42 unit/L LAB CHEMISTRY METHOD 10/22/2024 8:15 AM [facility] ALT (SGPT) 50 10 - 60 unit/L LAB CHEMISTRY METHOD 10/22/2024 8:15 AM [facility] Alkaline Phosphatase 86 42 - 121 unit/L LAB CHEMISTRY METHOD 10/22/2024 8:15 AM [facility] Total Protein 6.8 6.0 - 8.0 g/dL LAB CHEMISTRY METHOD 10/22/2024 8:15 AM [facility] Albumin 3.9 3.2 - 5.0 g/dL LAB CHEMISTRY METHOD 10/22/2024 8:15 AM [facility] Total Bilirubin 0.5 0.0 - 1.4 mg/dL LAB CHEMISTRY METHOD 10/22/2024 8:15 AM [facility] Blood Venous blood specimen / Unknown Venipuncture / Unknown 10/22/2024 6:28 AM EST 10/22/2024 7:28 AM EST us Jose Francisco Morley MD LAB BLOOD ORDERABLES Final Resu lt [facility] [address] [place] [address], * Complete blood count (10/22/2024 6:28 AM EST) [facility] WBC 6.7 4.8 - 10.8 K/mcL LAB HEMETOLOGY METHOD 10/22/2024 7:52 AM [facility] RBC 4.20 3.80 - 4.80 M/mcL LAB HEMETOLOGY METHOD 10/22/2024 7:52 AM EST [facility] Hemoglobin 13.2 11.5 - 16.0 g/dL LAB HEMETOLOGY METHOD 10/22/2024 7:52 AM [facility] Hematocrit 40.0 35.0 - 47.0 % LAB HEMETOLOGY METHOD 10/22/2024 7:52 AM [facility] MCV 94.6 79.0 - 98.0 FL LAB HEMETOLOGY METHOD 10/22/2024 7:52 AM [facility] MCH 31.2 27.0 - 32.0 pcg LAB HEMETOLOGY METHOD 10/22/2024 7:52 AM [facility] MCHC 33.0 32.0 - 37.0 g/dL LAB HEMETOLOGY METHOD 10/22/2024 7:52 AM [facility] RDW 13.6 11.0 - 15.0 % LAB HEMETOLOGY METHOD 10/22/2024 7:52 AM [facility] Platelets 237 130 - 400 K/mcL LAB HEMETOLOGY METHOD 10/22/2024 7:52 AM [facility] MPV 9.6 7.0 - 11.0 FL LAB HEMETOLOGY METHOD 10/22/2024 7:52 AM [facility] NRBC 0.0 <1.0 % LAB HEMETOLOGY METHOD 10/22/2024 7:52 AM [facility] NRBC Absolute 0.00 <0.10 K/mcL LAB HEMETOLOGY METHOD 10/22/2024 7:52 AM EST [facility] Blood Venous blood specimen / Unknown Venipuncture / Unknown 10/22/2024 6:28 AM EST 10/22/2024 7:28 AM EST us Jose Francisco Morley MD LAB BLOOD ORDERABLES Final Resu lt [facility] [address] [place] [address], documented in this encounter Visit Diagnoses Diagnosis Essential (primary) hypertension Unspecified essential hypertension documented in this encounter Care Teams Orthopedic Cast Specialist Relationship Specialty Start Date End Date Clary Greenwood MD [address] [place] [address] PCP - General 11/30/1992 documented as of this encounter
--- OUTSIDE RECORDS SUMMARY | 2025-01-12 14:10 | XMS_ITS | Encounter Summary ---
Author Organization [facility] Address [address] [place] [address] Care Team Providers Care Supervisor Border Department Name Role Phone Clary Greenwood MD Primary Care Provider [phone] Reason for Visit * Reason Onset Date Comments faxed order 12/01/2024 Teressa zuluaga Nurse order #[id number] Encounter Details Date Type Department Care Team (Late Contact Info) Description 12/01/2024 Telephone Adult Medicine [address] [phone] Verona Olsen [place] faxed order (Teressa Haas Nurse order #[id number]) Social History Tobacco Use Types Packs/Day Years [...] as of this encounter Progress Notes * Verona Olsen MA - 12/01/2024 3:10 PM EST Received orders from Teressa Haas Nurse order #[id number]. Please sign and fax to [phone] documented in this encounter Plan of Treatment Upcoming Encounters Date Type Department Care Team (Late Contact Info) Description 01/24/2025 2:00 PM EST Office Visit Urogynecology - [place] [address] [place], [place] [phone] Sarah Carballo MD [address] [facility] [address] [place] [address] 02/13/2025 11:00 AM EDT Office Visit Adult Medicine [place] - [place] [address] [place], [place] [phone] Clary Greenwood MD [address] [place], [place] 02/20/2025 9:30 AM EDT Office Visit [facility] Cardiology - [place] [address] [facility] [address] [place] [phone] Frida Londono, DIRECTOR ADULT 19 [facility] [address] [place] [address] documented as of this encounter Visit Diagnoses Not on filedocumented in this encounter Care Teams Supervisor Border Department Relationship Specialty Start Date End Date Clary Greenwood MD [address] [place] [address] PCP - General 11/30/1992 documented as of this encounter
--- OUTSIDE RECORDS SUMMARY | 2025-01-12 14:10 | XMS_ITS | Encounter Summary ---
Author Organization [facility] Address [address] [place] [address] Care Team Providers Care Sintering Press Operator Name Role Phone Clary Greenwood MD Primary Care Provider [phone] Reason for Visit * Reason Comments Annual Exam Hypertension Hyperlipidemia Edema Cerebrovascular Accident Encounter Details Date Type Department Care Team (Latest Contact Info) Description 12/21/2024 4:00 PM EST Office Visit [facility] Cardiology - [place] [address] [place] [phone] Keshav Araujo MD [address] [address] Pure hypercholesterolemia (Primary Dx); Primary hypertension; Bilateral leg edema Social History Tobacco Use Types Packs/Day Years [...] on file documented as of this encounter Last Filed Vital Signs Vital Sign Reading Time Taken Comments Blood Pressure 154/72 12/21/2024 4:03 PM EST Pulse 74 12/21/2024 4:03 PM EST Temperature - - Respiratory Rate - - Oxygen Saturation 100% 12/21/2024 4:03 PM EST Inhaled Oxygen Concentration - - Weight 85.3 kg (188 lb) 12/21/2024 4:03 PM EST Height 158.8 cm (5' 2.5 ) 12/21/2024 4:03 PM EST Body Mass Index 33.84 12/21/2024 4:03 PM EST documented in this encounter Progress Notes * Keshav Araujo MD - 12/21/2024 4:00 PM EST Images from the original note were not included. Cardiology Attending Outpatient Progress Note-12/21/2024 [facility] Manager Of Warehouse-Van Patient Name:Alethea Shea Patient : 1955 Referring MD:Clary Greenwood MD Interval History: The patient is a 69 y.o. female who was seen today for follow up of risk factors for ischemic heartdisease. She was last seen here in August 2023 as a new patient and she has previously undergone coronary calcium scoring that was completely normal back in 2021. She said that she has been doing pretty well until Thanks when she suffered a stroke. She describes being on the phone and arguing with someone about bills and suddenly her left arm went numb. She said that imaging was done and she saw specialists there and her medications were changed in several different ways. She has followed up with neurology since then as well. She has not had any new cardiac symptoms of concern. She specifically denies having any chest discomfort or shortness of breath. There have not been any bleeding or bruising issues. She denies palpitations or racing heartbeats. She has not heard the results of her monitor which she wore for 2 weeksand appears to have been a ZIO. Physical exam today is basically normal except for trace leg edema. Blood pressure is elevated. EKGshows sinus rhythm with a minor ST abnormality. At this point I would like to increase her Lasix to 40 mg daily. I have also asked her to sign release of records so that we can get all the information from [facility]. No other cardiac med changes are needed. Lipids should be rechecked later in the year. Cardiac warning symptoms of concern were discussed with her at length. I would like her to return in 2 months time and see our OPERATIONS VICE PRESIDENT. Her diuretic may be able to be decreased at that point but we willsee how she does clinically. Tentative follow-up with me later in the year. Cardiac Issues: Hypertension (Essential)-2+RF- ( I10)-The patient's blood pressure is elevated and not optimally treated at this point. Risk factors for CV disease were reviewed. The patient will continue with the current regimen of medicines and will be followed expectantly to maintain a goal BP of under 130/80. I have advised increasing her Lasix to 40 mg daily. No CAD-(normal coronary calcium score done in )-The patient is stable from a cardiovascular standpoint. She has undergone coronary artery calcium scoring done in early 2021 that was completely normal. She also had a normal echo test done in January of 2022. Consider repeat coronary calcium score should be done in 2026. Hx of Cerebrovascular Accident/Stroke (Z86.73)-The patient has had a prior right brain thalamic stroke in the past. She still has some left-sided weakness which has not come back all the way to normal. She is continuing to go through stroke rehab. Her blood pressure is still a bit elevated. She didwear a monitor and we will try to obtain and review all of the results from her [facility] admission.The mechanism certainly seems as if this was related to uncontrolled hypertension. Hyperlipidemia (E78.0)- Appropriate residential diet and regular exercise are advised. Periodic checks of the blood lipids should continue. Her last LDL was 122 in May 2024. She is now on high intensity statin therapy. Await follow-up lipids that will be done later in the year. Chronic Leg Edema-on lasix ( R60.0)- The patient has chronic leg edema that is stable on the present dose of diuretic. No changes to the medicines are recommended at this point. Continued vigilance regarding following the serum electrolytes- (especially potassium and magnesium) will continue with periodic blood testing. The patient will continue to work on diet, exercise and salt avoidance as an outpatient . Keshav Araujo MD [facility] 12/21/2024 4:14 PM EST Office [phone] Current Outpatient Medications Medication Sig Dispense Refill acetaminophen (TYLENOL) 500 mg tablet Sig - Route: Take 1,000 mg by mouth every 6 hours as needed. - Oral Class: Historic amLODIPine (NORVASC) 10 mg tablet Take 1 Tablet by mouth at bedtime. aspirin 81 mg EC tablet Take 1 tablet (81 mg total) by mouth 1 (one) time each day. atorvastatin (LIPITOR) 80 mg tablet Take 1 tablet (80 mg total) by mouth at bedtime. 90 tablet 1 calcium carbonate-vitamin D 500 mg-5 mcg (200 unit) per tablet Take 1 tablet by mouth daily. fexofenadine (EBONI) 180 mg tablet Take 1 tablet (180 mg total) by mouth 1 (one) time each day. fluticasone propionate (FLONASE) 50 mcg/actuation nasal spray spray/apply 1 spray in each nostril 2(two) times a day. furosemide (LASIX) 20 mg tablet Take 1 tablet by mouth daily. losartan (COZAAR) 100 mg tablet Take 1 tablet (100 mg total) by mouth 1 (one) time each day. 90 tablet 1 multivitamin (MULTIPLE VITAMINS ORAL) Take 1 tablet by mouth daily. spironolactone (ALDACTONE) 25 mg tablet TAKE 1 TABLET BY MOUTH AT BEDTIME. turmeric root extract 500 mg capsule Take by mouth. vitamin B complex (VITAMINS B COMPLEX ORAL) Take by mouth. No current facility-administered medications for this visit. Allergies Allergen Reactions Oxycodone Itching Norepinephrine Bitartrate Unknown Amoxicillin Diarrhea Amoxicillin-Pot Clavulanate Diarrhea Cephalexin Nausea And Vomiting Other reaction(s): Other (See Comments) Other reaction(s): GI Upset ? Caused dizziness n/v Unsure if it was the keflex because was also on bactrim Cephalexin Monohydrate Nausea And Vomiting and Other ? Caused dizziness n/v Unsure if it was the keflex because was on bactrim also Clavulanic Acid Diarrhea Other reaction(s): Other (See Comments) Hydrochlorothiazide Photosensitivity Hydrocodone Other reaction(s): Other (See Comments) paresthesias and sensation of bugs crawling Meperidine Headache Dizziness, vomiting, and headache after demerol in 2002 colonoscopy. Other reaction(s): Other (See Comments) Other reaction(s): Headaches Dizziness, vomiting, and headache after demerol in 2002 colonoscopy. Sulfamethoxazole Other reaction(s): Other (See Comments) GI upset Sulfamethoxazole-Trimethoprim Nausea And Vomiting Other reaction(s): OTHER, Other (See Comments) Dizziness and n/v Unsure if it was the bactrim because was also on keflex Other reaction(s): GI Upset Dizziness and n/v Unsure if it was the bactrim because was also on keflex Trimethoprim Other reaction(s): Other (See Comments) Sulfa- Gi upset VS Visit Vitals BP (!) 154/72 Pulse 74 Ht 1.588 m (62.5 ) Wt 85.3 kg (188 lb) SpO2 100% BMI 33.84 kg/m?? Smoking Status Never BSA 1.87 m?? Today's PE and ROS Complete 12 point review of systems was completed and is negative as per HPI. Specifically reviewedissues include -no diarrhea, no weight gain, no rash, no neck pain, no headache, no fevers, no cough, no claudication, no bleeding, and no vision changes. Physical Exam Gen-no distress and well appearing Eyes-normal conjuctiva/lids; no xanthalasma E/N/T-normal teeth/gums/mucosa Neck-normal JVP, no carotid bruit, no obvious goiter Lungs-normal air movement/respiratory effort, no wheeze, no crackles, no rhonchi Cardiac-regular rate and rhythm, no murmur, no gallop, no rub Abdomen-NABS, no significant tenderness or mass Musculoskeletal-grossly normal Ext-trace leg edema, grossly normal pulses Skin-no rash/stasis Neuro-awake/alert EKG today:*all EKG's personally reviewed by me Encounter Date: 12/21/24 ECG 12 lead Narrative Normal sinus rhythm at 68 bpm with poor R wave progression across the early leads and minor ST abnormality-otherwise normal tracing Past Medical History: Diagnosis Date Allergic rhinitis, cause unspecified 12/24/2006 DJD (degenerative joint disease) of cervical spine 02/09/2008 Essential hypertension, benign Hyperlipidemia 11/09/2012 Incontinence of feces 02/12/2010 Medial meniscus tear 04/04/2014 DX:Medial meniscus tear Osteoarthritis of both knees 05/15/2020 Prediabetes 06/19/2024 Retinal vein occlusion (CMS/HCC) 01/04/2012 Left, laser treatment Sciatica Unspecified venous (peripheral) insufficiency Past Surgical History: Procedure Laterality Date BREAST BIOPSY Left 1990s : benign BUNIONECTOMY Right 01/11/2018 : right chevron bunionectomy with screw fixation COLONOSCOPY 06/2003 COLONOSCOPY 12/14/2013 adenomas; repeat in 1 year COLONOSCOPY 03/25/2015 : tics; repeat in 5 yrs FLEXIBLE SIGMOIDOSCOPY 02/16/2010 normal OTHER SURGICAL HISTORY -1993 diskectomy L5 OTHER SURGICAL HISTORY RADIAL KERATOTOMY; COMMENT: left eye OTHER SURGICAL HISTORY Right 01/11/2018 : 2nd right PIPJ arthroplasty TOTAL KNEE ARTHROPLASTY Left 01/2022 Social History Socioeconomic History Marital status: Spouse name: Not on file Number of children: Not on file Years of education: Not on file Highest education level: Not on file Occupational History Not on file Tobacco Use Smoking status: Never Passive exposure: Past Smokeless tobacco: Never Substance and Sexual Activity Alcohol use: Yes Drug use: No Sexual activity: Not on file Other Topics Concern Not on file Social History Narrative , 3 children Work [employer], [id number] Family History Problem Relation Name Age of Onset Heart failure Mother htn, 61, RA Arthritis Mother Heart attack Father htn, diabetes 67 Diabetes Brother Arthritis Maternal Grandmother Prostate cancer Uncle Paternal Medical decision making for this established, stable patient includes: Problems listed above with additional workup planned, as outlined above, if needed. Data reviewed-last EKG, prior labs, prior imaging and old records (if available). Risk evaluated for problems and management options. documented in this encounter Plan of Treatment Upcoming Encounters Date Type Department Care Team (Late st Contact Info) Description 01/24/2025 2:00 PM EST Office Visit Urogynecology - [address] [phone] Sarah Carballo MD 580 [facility] [address] [place] [address] 02/13/2025 11:00 AM EDT Office Visit Adult Medicine [facility] [address] [place] [phone] Clary Greenwood MD [address] [place] [address] 02/20/2025 9:30 AM EDT Office Visit [place] [facility] [place] [address] [facility] [address] [place] [address] Frida Londono NP 19 [facility] [address] [place] [address] documented as of this encounter Procedures Procedure Name Priority Date/Time Associated Diagnosis Comments ECG 12-LEAD Routine 12/21/2024 4:14 PM EST Pure hypercholesterolemia Primary hypertension Bilateral leg edema documented in this encounter Results * ECG 12 lead (12/21/2024 4:14 PM EST) Narrative Keshav Araujo MD - 12/21/2024 4:14 PM EST Normal sinus rhythm at 68 bpm with poor R wave progression across the early leads and minor ST abnormality-otherwise normal tracing us Keshav Araujo MD ECG ORDERABLES Final Result documented in this encounter Visit Diagnoses Diagnosis Pure hypercholesterolemia- Primary Primary hypertension Unspecified essential hypertension Bilateral leg edema Edema documented in this encounter Discontinued Medications Medication Sig Discontinue Reason Start Date End Da te clopidogreL (PLAVIX) 75 mg tablet Take 1 tablet (75 mg total) by mouth 1 (one) time each day. Therapy completed 11/07/2024 12/21/2024 loratadine (CLARITIN) 10 mg tablet Take 10 mg by mouth every night at bedtime. Alternate therapy 11/10/2021 12/21/2024 documented as of this encounter Care Teams Sintering Press Operator Relationship Specialty Start Date End Date Clary Greenwood MD [address] [place] [address] PCP - General 11/30/1992 documented as of this encounter
--- OUTSIDE RECORDS SUMMARY | 2025-01-12 14:10 | XMS_ITS | Encounter Summary ---
Author Organization [facility] Address [address] [place] [address] Care Team Providers Care Renal Technician Name Role Phone Clary Greenwood MD Primary Care Provider [phone] Encounter Details Date Type Department Care Team (Late st Contact Info) Description 10/24/2024 Lab Requisition [facility] - Main Lab [address] [facility] [place] [address] Jose Francisco Morley MD [address] [place] [address] Other specified abnormal findings of blood chemistry; Hyperlipidemia, unspecified; Cerebral infarction, unspecified (CMS/HCC); Essential (primary) hypertension [...] 2:00 PM EST Office Visit Urogynecology - [address] [phone] Sarah Carballo MD 580 [facility] [address] [place] [address] 02/13/2025 11:00 AM EDT Office Visit Adult Medicine [facility] [address] [place], [place] [phone] Clary Greenwood MD [address] [place] 02/20/2025 9:30 AM EDT Office Visit [facility] Card[facility] - [place] [address] [facility] [address] [place] [phone] Frida Londono NP 19 [facility] [address] [place] [address] documented as of this encounter Procedures Procedure Name Priority Date/Time Associated Diagnosis Comments COMPLETE BLOOD COUNT Routine 10/24/2024 5:26 AM EST Other specified abnormal findings of blood chemistry Hyperlipidemia, unspecified Cerebral infarction, unspecified (CMS/HCC) Essential (primary) hypertension COMPREHENSIVE METABOLIC PANEL Routine 10/24/2024 5:26 AM EST Other specified abnormal findings of blood chemistry Hyperlipidemia, unspecified Cerebral infarction, unspecified (CMS/HCC) Essential (primary) hypertension documented in this encounter Results * (ABNORMAL) Comprehensive metabolic panel (10/24/2024 5:26 AM EST) Sodium 140 133 - 145 mmol/L LAB CHEMISTRY METHOD 10/24/2024 11:06 AM EST [facility] Potassium 4.5 3.5 - 5.5 mmol/L LAB CHEMISTRY METHOD 10/24/2024 11:06 AM EST [facility] Chloride 110 96 - 110 mmol/L LAB CHEMISTRY METHOD 10/24/2024 11:06 AM EST [facility] CO2 24 21 - 32 mmol/L LAB CHEMISTRY METHOD 10/24/2024 11:06 AM EST [facility] Anion Gap 6 3 - 11 LAB CHEMISTRY METHOD 10/24/2024 11:[address] [facility] Glucose 103(H) 70 - 100 mg/dL LAB CHEMISTRY METHOD 10/24/2024 11:[address] [facility] BUN 24 5 - 25 mg/dL LAB CHEMISTRY METHOD 10/24/2024 11:[address] [facility] Creatinine 0.73 0.50 - 1.10 mg/dL LAB CHEMISTRY METHOD 10/24/2024 11:[address] [facility] eGFR 90 >=60 mL/min/1. 73m2 LAB CHEMISTRY METHOD 10/24/2024 11:[address] [facility] Comment:Calculation based on the??Chronic Kidney Disease Epidemiology Collaboration (CKD-EPI) equation refit??without adjustment for race. BUN/Creatinine Ratio 32.9 LAB CHEMISTRY METHOD 10/24/2024 11:[address] [facility] Calcium 8.7 8.5 - 10.5 mg/dL LAB CHEMISTRY METHOD 10/24/2024 11:[address] [facility] AST (SGOT) 18 10 - 42 unit/L LAB CHEMISTRY METHOD 10/24/2024 11:[address] [facility] ALT (SGPT) 36 10 - 60 unit/L LAB CHEMISTRY METHOD 10/24/2024 11:[address] [facility] Alkaline Phosphatase 83 42 - 121 unit/L LAB CHEMISTRY METHOD 10/24/2024 11:[address] [facility] Total Protein 5.6(L) 6.0 - 8.0 g/dL LAB CHEMISTRY METHOD 10/24/2024 11:[address] [facility] Albumin 3.3 3.2 - 5.0 g/dL LAB CHEMISTRY METHOD 10/24/2024 11:[address] [facility] Total Bilirubin 0.3 0.0 - 1.4 mg/dL LAB CHEMISTRY METHOD 10/24/2024 11:[address] [facility] Blood Venous blood specimen / Unknown Venipuncture / Unknown 10/24/2024 5:26 AM EST 10/24/2024 9:59 AM EST us Jose Francisco Morley MD LAB BLOOD ORDERABLES Final Resu lt [facility] [address] [place] [address], [place] [phone] * (ABNORMAL) Complete blood count (10/24/2024 5:26 AM EST) WBC 6.1 4.8 - 10.8 K/mcL LAB HEMETOLOGY METHOD 10/24/2024 11:[address] [facility] RBC 3.70(L) 3.80 - 4.80 M/mcL LAB HEMETOLOGY METHOD 10/24/2024 11:[address] [facility] Hemoglobin 11.4(L) 11.5 - 16.0 g/dL LAB HEMETOLOGY METHOD 10/24/2024 11:[address] [facility] Hematocrit 35.5 35.0 - 47.0 % LAB HEMETOLOGY METHOD 10/24/2024 11:[address] [facility] MCV 96.5 79.0 - 98.0 FL LAB HEMETOLOGY METHOD 10/24/2024 11:[address] [facility] MCH 31.0 27.0 - 32.0 pcg LAB HEMETOLOGY METHOD 10/24/2024 11:[address] [facility] MCHC 32.1 32.0 - 37.0 g/dL LAB HEMETOLOGY METHOD 10/24/2024 11:[address] [facility] RDW 13.9 11.0 - 15.0 % LAB HEMETOLOGY METHOD 10/24/2024 11:[address] [facility] Platelets 216 130 - 400 K/mcL LAB HEMETOLOGY METHOD 10/24/2024 11:00 AM EST [facility] MPV 10.1 7.0 - 11.0 FL LAB HEMETOLOGY METHOD 10/24/2024 11:00 AM EST [facility] NRBC 0.0 <1.0 % LAB HEMETOLOGY METHOD 10/24/2024 11:00 AM EST [facility] NRBC Absolute 0.00 <0.10 K/mcL LAB HEMETOLOGY METHOD 10/24/2024 11:00 AM EST [facility] Blood Venous blood specimen / Unknown Venipuncture / Unknown 10/24/2024 5:26 AM EST 10/24/2024 9:59 AM EST us Jose Francisco Morley MD LAB BLOOD ORDERABLES Final Resu lt [facility] [address] [place] [address], documented in this encounter Visit Diagnoses Diagnosis Other specified abnormal findings of blood chemistry Hyperlipidemia, unspecified Cerebral infarction, unspecified (CMS/HCC) Essential (primary) hypertension Unspecified essential hypertension documented in this encounter Care Teams Renal Technician Relationship Specialty Start Date End Date Clary Greenwood MD [address] [place] [address] PCP - General 11/30/1992 documented as of this encounter
== END 2025-01-12 14:41 | disposition home or self-care (01) ==
PROVIDERS: PCP Internal Medicine; Visit Provider Physician Assistant Medical
DX: J18.9 Pneumonia, unspecified organism (principal); J20.9 Acute bronchitis, unspecified

== ENCOUNTER → 2025-01-12 13:43 | Outpatient (BNVA) | payer MEDICARE, BC, SELFPAY | PROVIDERS: PCP Internal Medicine | DX: J18.9 Pneumonia, unspecified organism (principal); J20.9 Acute bronchitis, unspecified | CPT/HCPCS: 99202 ==

== ENCOUNTER 2025-01-15 08:10 | Outpatient (AMB) | payer MEDICARE, BC, SELFPAY ==
--- OUTSIDE RECORDS SUMMARY | 2025-01-15 08:12 | XMS_ITS | Encounter Summary ---
Author Organization [facility] Address [address] [place] [address] Care Team Providers Care Housing Inspectors Name Role Phone Clary Greenwood MD Primary Care Provider [phone] Reason for Visit * Reason Onset Date Comments faxed order 12/01/2024 Teressa zuluaga Nurse order #[id number] Encounter Details Date Type Department Care Team (Late Contact Info) Description 12/01/2024 Telephone Adult Medicine [address] [phone] [place] Olsen [place] faxed order (Teressa Haas Nurse order #[id number]) Social History Tobacco Use Types Packs/Day Years [...] Received orders from Teressa Haas Nurse order #[id number]. Please sign and fax to [phone] documented in this encounter Plan of Treatment Upcoming Encounters Date Type Department Care Team (Late Contact Info) Description 01/24/2025 2:00 PM EST Office Visit Urogynecology - [place] [address] [place], [place] [phone] Sarah Carballo MD 580 [facility] [address] [place] [address] 02/13/2025 11:00 AM EDT Office Visit Adult Medicine [place] [address] [place], [place] [phone] Clary Greenwood MD [address] [place], [place] 02/20/2025 9:30 AM EDT Office Visit [facility] [place] 16[address] [facility] [address] [place] [phone] Frida Londono, GENERAL SUPERVISOR 19 [facility] [address] [place] [address] documented as of this encounter Visit Diagnoses Not on filedocumented in this encounter Care Teams Housing Inspectors Relationship Specialty Start Date End Date Clary Greenwood MD [address] [place] [address] PCP - General 11/30/1992 documented as of this encounter
--- OUTSIDE RECORDS SUMMARY | 2025-01-15 08:12 | XMS_ITS | Clinical Summary ---
Author Organization [facility] Address [address] [place] [address] Phone Care Team Providers Care Hand Ii Blocker Name Role Phone Clary Greenwood MD Primary Care Provider [phone] Allergies Active Allergy Reactions Criticality Noted Date [...] Description 12/21/2024 4:00 PM EST Office Visit [place] [facility] - [place] [address] [phone] Keshav Araujo MD Pure hypercholesterolemia (Primary Dx); Primary hypertension; Bilateral leg edema 12/13/[address] [phone] Clary Greenwood MD Rug Measurer Feedback ([facility]) 12/01/[address] [phone] Verona Olsen [place] faxed order ([facility] Visiting Nurse order #[id number]) 11/27/[address] [phone] Clary Greenwood MD Referral 11/07/2024 1:00 PM EST Office Visit [address] [phone] Clary Greenwood MD Cerebrovascular accident (CVA) due to thrombosis of right posterior cerebral artery (CMS/HCC) (Primary Dx); Essential hypertension, benign; Prediabetes 11/06/[address] [phone] Clary Greenwood MD GSSSI 11/01/[address] [phone] Clary Greenwood MD vna 10/31/[address] [phone] Clary Greenwood MD [facility] ) 10/29/2024 Lab Requisition [facility] - Main Lab 299 [facility] [phone] Jose Francisco Morley MD Cerebral infarction, unspecified (CMS/HCC); Essential (primary) hypertension 10/25/2024 Lab Requisition [facility] Lab [address] [place] [phone] Jose Francisco Morley MD Cerebral infarction, unspecified ([facility]); Essential (primary) hypertension 10/24/2024 Lab Requisition [facility] Lab [address] [place] [phone] Jose Francisco Morley MD Other specified abnormal findings of blood chemistry; Hyperlipidemia, unspecified; Cerebral infarction, unspecified ([facility]/HCC); Essential (primary) hypertension 10/22/2024 Lab Requisition [facility] Lab [address] [place] [phone] Jose Francisco Morley MD Essential (primary) hypertension 10/22/2024 Lab Requisition [facility] Lab [address] [place] [phone] Jose Francisco Morley MD Essential (primary) hypertension from Last 3 Months Immunizations Name Administration Dates Next Due Influenza trivalent, 0.5mL ( Fluad) 65yo and older 07/25/2024 Influenza trivalent, 0.5mL ( Fluzone High-dose) 65yo and older 08/22/2023 Influenza, Unspecified 08/24/2022,2020,09/15/2020,08/23,11/24/2018,11/26/2016,01/30/2015 ,09/15/2013,01/04/2012,12/27/2009 [employer] SARS-CoV-2 COVID-19, mRNA, LNP-S, preservative free 04/06/2022,09/26/2021 [...] 01/24/2025 2:00 PM EST Office Visit Urogynecology [address] [phone] Sarah Carballo MD 580 [facility] 205 [place] [address] 02/13/2025 11:00 AM EDT Office Visit Adult Medicine [facility] - [address] [phone] Clary Greenwood MD [address] [place], [place] 02/20/2025 9:30 AM EDT Office Visit [facility] - [place] 1699 [facility] [address] [place] [phone] Frida Londono NP 19 [facility] 45 [place] [address] Health Maintenance Due Date Last Done Comments Diabetes: Annual Foot Exam 02/04/1966 Diabetes: Annual Retina Eye Exam 02/04/1966 Social Influencers of Health Screening 10/30/2022 Falls Risk Assessment 11/29/2024 11/29/2023, 024 Diabetes: Annual Urine Albumin-Creatinine Ratio (uACR) 01/14/2025 Diabetes: Blood Sugar Control Test (HGBA1C) 01/14/2025 06/06/2024, 06/05/2024, 06/13/2022, Additional history exists Colorectal Cancer Screening: Colonoscopy 05/13/2025 05/13/2020 Depression Screening 06/05/2025 06/05/2024, 08/24/20 Medicare Annual Wellness Visit 06/05/2025 06/05/2024 Diabetes: Annual GFR (Glomerular Filtration Rate) 10/30/2025 10/30/2024, 10/26/2024, 10/24/2024, Additional history exists Hypertension/CHF/CAD Annual BMP Blood Test 10/30/2025 10/30/2024, 10/26/2024, 10/24/2024, Additional history exists Breast Cancer Screening 09/19/2026 09/19/20 24, 09/19/2024, 09/13/2023, Additional history exists Cholesterol Screening [...] this topic Medical Devices Implanted Type Area Salesperson Women'S Hats Device Identifier Shelf Expiration Date Model / Serial / Lot Cement Bone Surg Simplex Radiopq Stry-Howm [id number] Implanted:Qty: 1 on 01/26/2022 by Gonzalo Pope MD Left: Knee [employer] 6191-1-010 / / Cement Bone Surg Simplex Radiopq Stry-Howm [id number] Implanted:Qty: 1 on 01/26/2022 by Gonzalo Pope MD Left: Knee [employer] 6191-1-010 / / Knee Bsplt Triathlon Ti Sz 4 Stry-Howm [id number] Implanted:Qty: 1 on 01/26/2022 by Gonzalo Pope MD Left: Knee [employer] [id number] 10/27/2026 5536-B-400 / / [id number] Knee Ptla Asym Tritanium 32x10 Stry-How [id number] [id number] Implanted:Qty: 1 on 01/26/2022 by Gonzalo Pope MD Left: Knee [employer] [id number] 10/16/2026 5552-L-320 / / [id number] Knee Tib Insrt Cr-X3 [id number] Stry-Howm 0458-G-[id number] Implanted:Qty: 1 on 01/26/2022 by Gonzalo Pope MD Left: Knee [employer] [id number] 02/10/2025 5530-G-411 / / [id number] Knee Fem Bsplt W Pa Stry-Howm [id number] Implanted:Qty: 1 on 01/26/2022 by Gonzalo Pope MD Left: Knee [employer] [id number] 10/26/2026 5517-F-401 / / [id number] Tibial Bearing Insert Cs 10mm Stry-Howm 5551-G-715-[id number] Implanted:Qty: 1 on 06/22/2022 by Gonzalo Pope MD Right: Knee [employer] [id number] 05/05/2027 5531-G-410 -E / / [id number] Knee Bsplt Triathlon Ti Sz 4 Stry-Howm [id number] Implanted:Qty: 1 on 06/22/2022 by Gonzalo Pope MD Right: Knee [employer] [id number] 04/09/2027 5536-B-400 / / [id number] Knee Fem Bsplt W Pa Stry-Howm [id number] Implanted:Qty: 1 on 06/22/2022 by Gonzalo Pope MD Right: Knee [employer] [id number] 03/29/2027 5517-F-402 / / [id number] Knee Ptla Asym Tritanium 32x10 Stry-Howm [id number] Implanted:Qty: 1 on 06/22/2022 by Gonzalo Pope MD Right: Knee [employer] [id number] 04/01/2027 5552-L-320 / / [id number] Procedures Procedure [...] neoplasm of breast LIPID PANEL Routine 06/06/2024 HM DEPRESSION SCREENING Routine 06/05/2024 HEMOGLOBIN A1C Routine 06/05/2024 FALLS RISK ASSESSMENT Routine 11/29/2023 [...] K/mcL LAB HEMETOLOGY METHOD 10/30/2024 9:48 AM [facility] LAB RBC 3.70(L) 3.80 - 4.80 M/mcL LAB HEMETOLOGY METHOD 10/30/2024 9:48 AM [facility] LAB Hemoglobin 11.5 11.5 - 16.0 g/dL LAB HEMETOLOGY METHOD 10/30/2024 9:48 AM [facility] LAB Hematocrit 35.5 35.0 - 47.0 % LAB HEMETOLOGY METHOD 10/30/2024 9:48 AM [facility] LAB MCV 96.2 79.0 - 98.0 FL LAB HEMETOLOGY METHOD 10/30/2024 9:48 AM [facility] LAB MCH 31.2 27.0 - 32.0 pcg LAB HEMETOLOGY METHOD 10/30/2024 9:48 AM [facility] LAB MCHC 32.4 32.0 - 37.0 g/dL LAB HEMETOLOGY METHOD 10/30/2024 9:48 AM [facility] LAB RDW 13.5 11.0 - 15.0 % LAB HEMETOLOGY METHOD 10/30/2024 9:48 AM EST [facility] LAB Platelets 212 130 - 400 K/mcL LAB HEMETOLOGY METHOD 10/30/2024 9:48 AM [facility] LAB MPV 9.9 7.0 - 11.0 FL LAB HEMETOLOGY METHOD 10/30/2024 9:48 AM EST [facility] LAB NRBC 0.0 <1.0 % LAB HEMETOLOGY METHOD 10/30/2024 9:48 AM [facility] LAB NRBC Absolute 0.00 <0.10 K/mcL LAB HEMETOLOGY METHOD 10/30/2024 9:48 AM [facility] LAB Blood Venous blood specimen / Unknown Venipuncture / Unknown 10/30/2024 5:24 AM EST 10/30/2024 9:33 AM EST us Jose Francisco Morley MD LAB BLOOD ORDERABLES Final Resu lt [facility] LAB [address] [place] [address], [place] [phone] * (ABNORMAL) Comprehensive metabolic panel (10/30/2024 5:24 AM EST) Only the most recent of4 resultswithin the time period is included. Sodium 142 133 - 145 mmol/L LAB CHEMISTRY METHOD 10/30/2024 10:15 AM [facility] LAB Potassium 4.9 3.5 - 5.5 mmol/L LAB CHEMISTRY METHOD 10/30/2024 10:15 AM [facility] LAB Chloride 109 96 - 110 mmol/L LAB CHEMISTRY METHOD 10/30/2024 10:15 AM [facility] LAB CO2 28 21 - 32 mmol/L LAB CHEMISTRY METHOD 10/30/2024 10:15 AM [facility] LAB Anion Gap 5 3 - 11 LAB CHEMISTRY METHOD 10/30/2024 10:15 AM [facility] LAB Glucose 107(H) 70 - 100 mg/dL LAB CHEMISTRY METHOD 10/30/2024 10:15 AM [facility] LAB BUN 17 5 - 25 mg/dL LAB CHEMISTRY METHOD 10/30/2024 10:15 AM [facility] LAB Creatinine 0.66 0.50 - 1.10 mg/dL LAB CHEMISTRY METHOD 10/30/2024 10:15 AM [facility] LAB eGFR 96 >=60 mL/min/1. 73m2 LAB CHEMISTRY METHOD 10/30/2024 10:15 AM [facility] LAB Comment:Calculation based on the??Chronic Kidney Disease Epidemiology Collaboration (CKD-EPI) equation refit??without adjustment for race. BUN/Creatinine Ratio 25.8 LAB CHEMISTRY METHOD 10/30/2024 10:15 AM [facility] LAB Calcium 9.0 8.5 - 10.5 mg/dL LAB CHEMISTRY METHOD 10/30/2024 10:15 AM [facility] LAB AST (SGOT) 12 10 - 42 unit/L LAB CHEMISTRY METHOD 10/30/2024 10:15 AM [facility] LAB ALT (SGPT) 24 10 - 60 unit/L LAB CHEMISTRY METHOD 10/30/2024 10:15 AM [facility] LAB Alkaline Phosphatase 90 42 - 121 unit/L LAB CHEMISTRY METHOD 10/30/2024 10:15 AM [facility] LAB Total Protein 5.8(L) 6.0 - 8.0 g/dL LAB CHEMISTRY METHOD 10/30/2024 10:15 AM [facility] LAB Albumin 3.3 3.2 - 5.0 g/dL LAB CHEMISTRY METHOD 10/30/2024 10:15 AM [facility] LAB Total Bilirubin 0.4 0.0 - 1.4 mg/dL LAB CHEMISTRY METHOD 10/30/2024 10:15 AM [facility] LAB Blood Venous blood specimen / Unknown Venipuncture / Unknown 10/30/2024 5:24 AM EST 10/30/2024 9:25 AM EST Jose Francisco Morley MD LAB BLOOD ORDERABLES Final Resu lt [facility] [address] [place] [address], * (ABNORMAL) Basic metabolic panel (10/26/2024 5:19 AM EST) Sodium 144 133 - 145 mmol/L LAB CHEMISTRY METHOD 10/26/2024 9:07 AM [facility] LAB Potassium 5.0 3.5 - 5.5 mmol/L LAB CHEMISTRY METHOD 10/26/2024 9:07 AM [facility] LAB Chloride 111(H) 96 - 110 mmol/L LAB CHEMISTRY METHOD 10/26/2024 9:07 AM [facility] LAB CO2 29 21 - 32 mmol/L LAB CHEMISTRY METHOD 10/26/2024 9:07 AM [facility] LAB Anion Gap 4 3 - 11 LAB CHEMISTRY METHOD 10/26/2024 9:07 AM [facility] LAB Glucose 102(H) 70 - 100 mg/dL LAB CHEMISTRY METHOD 10/26/2024 9:07 AM [facility] LAB BUN 21 5 - 25 mg/dL LAB CHEMISTRY METHOD 10/26/2024 9:07 AM [facility] LAB Creatinine 0.84 0.50 - 1.10 mg/dL LAB CHEMISTRY METHOD 10/26/2024 9:07 AM [facility] LAB eGFR 76 >=60 mL/min/1. 73m2 LAB CHEMISTRY METHOD 10/26/2024 9:07 AM [facility] LAB Comment:Calculation based on the??Chronic Kidney Disease Epidemiology Collaboration (CKD-EPI) equation refit??without adjustment for race. BUN/Creatinine Ratio 25.0 LAB CHEMISTRY METHOD 10/26/2024 9:07 AM EST [facility] LAB Calcium 9.4 8.5 - 10.5 mg/dL LAB CHEMISTRY METHOD 10/26/2024 9:07 AM EST [facility] Blood Venous blood specimen / Unknown Venipuncture / Unknown 10/26/2024 5:19 AM EST 10/26/2024 8:15 AM EST us Jose Francisco Morley MD LAB BLOOD ORDERABLES Final Resu lt [facility] ([facility] [address] [place] [address], [place] [phone] * SCREENING MAMMOGRAPHY BI 2-VIEW BREAST INC [...] Recommendation: Routine annual screening mammography is recommended [facility] [address] [address] Procedure Note Pierce Ceballos MD - 09/23/2024 [...] Recommendation: Routine annual screening mammography is recommended [address] [phone] Clary Greenwood MD IMG XR PROCEDURES Final Result * (ABNORMAL) Lipid panel (06/06/2024) LDL/HDL Ratio 3 0 - 4 Triglycerides 83 0 - 150 mg/dL Cholesterol 197 0 - 200 mg/dL HDL 59 >=40 mg/dL LDL Cholesterol 122(A) 0 - 100 mg/dL Blood Venous blood specimen / Unknown Result [facility] Historical Provider LAB BLOOD ORDERABLES Rachel l Result * Depression Screening (06/05/2024) Pathologist [facility] Depression Screening abstracted Historical Provider HEALTH MAINTENANCE Final Result * Hemoglobin A1c (06/05/2024) Hemoglobin A1C 5.7 <=6.5 % Blood Venous blood specimen / Unknown Result [facility] Historical Provider LAB BLOOD ORDERABLES Rachel l Result * Falls Risk Assessment (11/29/2023) [facility] Falls Risk Assessment abstracted us Historical Provider HEALTH MAINTENANCE Final Result * [...] (World Health Organization Fracture Risk Assessment) [facility] Department of Internal Medicine recommends using National [...] World Health Organization criteria, Alethea Shea should beclassified as having osteopenia. This patient has a 9.8% risk of majorosteoporotic fracture and a 1.4% risk of hip fracture over the next 10years. (World Health Organization Fracture Risk Assessment) [facility] Department of Internal Medicine recommendsusing National Osteoporosis [...] or over-estimation of fracture risk by FRAX. us Krystina MG IMRosas DXA PROCEDURES Final Resu lt * Hm Hepatitis C Screening (05/11/2013) Hepatitis C Screening abstracted us Historical Provider HEALTH MAINTENANCE Final Result from Last 3 Months or Most Recently Relevant to Health Maintenance Insurance MEDICARE [facility] Care Teams Hand Ii Blocker Relationship Specialty Start Date End Date Clary Greenwood MD [address] [place] [address] PCP - General 11/30/1992
--- OUTSIDE RECORDS SUMMARY | 2025-01-15 08:12 | XMS_ITS | Encounter Summary ---
Author Organization [facility] Address [address] [place] [address] Care Team Providers Care Organic Chemistry Teacher Name Role Phone Clary Greenwood MD Primary Care Provider [phone] Encounter Details Date Type Department Care Team (Late Contact Info) Description 10/29/[address] [facility] - Main Lab 299 [facility] [place] [address] Jose Francisco Morley MD [address] [place] [address] Cerebral infarction, unspecified (CMS/HCC); Essential [...] 01/24/2025 2:00 PM EST Office Visit Urogynecology [address] [phone] Sarah Carballo MD 580 [facility] 205 [place] [address] 02/13/2025 11:00 AM EDT Office Visit Adult Medicine [facility] [address] [place] [address] Clary Greenwood MD [address] [place], [place] 02/20/2025 9:30 AM EDT Office Visit [facility] - [place] 1699 [facility] [address] [place] [address] Frida Londono NP 19 [facility] [address] [place] [address] documented as of this encounter Procedures Procedure [...] mmol/L LAB CHEMISTRY METHOD 10/30/2024 10:15 AM [facility] LAB Potassium 4.9 3.5 - 5.5 mmol/L LAB CHEMISTRY METHOD 10/30/2024 10:15 AM [facility] LAB Chloride 109 96 - 110 mmol/L LAB CHEMISTRY METHOD 10/30/2024 10:15 AM [facility] LAB CO2 28 21 - 32 mmol/L LAB CHEMISTRY METHOD 10/30/2024 10:15 AM [facility] LAB Anion Gap 5 3 - 11 LAB CHEMISTRY METHOD 10/30/2024 10:15 AM [facility] LAB Glucose 107(H) 70 - 100 mg/dL LAB CHEMISTRY METHOD 10/30/2024 10:15 AM [facility] LAB BUN 17 5 - 25 mg/dL LAB CHEMISTRY METHOD 10/30/2024 10:15 AM [facility] LAB Creatinine 0.66 0.50 - 1.10 mg/dL LAB CHEMISTRY METHOD 10/30/2024 10:15 AM [facility] LAB eGFR 96 >=60 mL/min/1. 73m2 LAB CHEMISTRY METHOD 10/30/2024 10:15 AM [facility] LAB Comment:Calculation based on the??Chronic Kidney Disease Epidemiology Collaboration (CKD-EPI) equation refit??without adjustment for race. BUN/Creatinine Ratio 25.8 LAB CHEMISTRY METHOD 10/30/2024 10:15 AM [facility] LAB Calcium 9.0 8.5 - 10.5 mg/dL LAB CHEMISTRY METHOD 10/30/2024 10:15 AM [facility] LAB AST (SGOT) 12 10 - 42 unit/L LAB CHEMISTRY METHOD 10/30/2024 10:15 AM [facility] LAB ALT (SGPT) 24 10 - 60 unit/L LAB CHEMISTRY METHOD 10/30/2024 10:15 AM [facility] LAB Alkaline Phosphatase 90 42 - 121 unit/L LAB CHEMISTRY METHOD 10/30/2024 10:15 AM [facility] LAB Total Protein 5.8(L) 6.0 - 8.0 g/dL LAB CHEMISTRY METHOD 10/30/2024 10:15 AM [facility] LAB Albumin 3.3 3.2 - 5.0 g/dL LAB CHEMISTRY METHOD 10/30/2024 10:15 AM [facility] LAB Total Bilirubin 0.4 0.0 - 1.4 mg/dL LAB CHEMISTRY METHOD 10/30/2024 10:15 AM [facility] LAB Blood Venous blood specimen / Unknown Venipuncture / Unknown 10/30/2024 5:24 AM EST 10/30/2024 9:25 AM EST Jose Francisco Morley MD LAB BLOOD ORDERABLES Final Resu lt [facility] LAB [address] [place] [address], * (ABNORMAL) Complete blood count (10/30/2024 5:24 AM EST) WBC 5.9 4.8 - 10.8 K/mcL LAB HEMETOLOGY METHOD 10/30/2024 9:48 AM EST [facility] LAB RBC 3.70(L) 3.80 - 4.80 M/mcL LAB HEMETOLOGY METHOD 10/30/2024 9:48 AM [facility] LAB Hemoglobin 11.5 11.5 - 16.0 g/dL LAB HEMETOLOGY METHOD 10/30/2024 9:48 AM [facility] LAB Hematocrit 35.5 35.0 - 47.0 % LAB HEMETOLOGY METHOD 10/30/2024 9:48 AM EST [facility] LAB MCV 96.2 79.0 - 98.0 FL LAB HEMETOLOGY METHOD 10/30/2024 9:48 AM [facility] LAB MCH 31.2 27.0 - 32.0 pcg LAB HEMETOLOGY METHOD 10/30/2024 9:48 AM [facility] LAB MCHC 32.4 32.0 - 37.0 g/dL LAB HEMETOLOGY METHOD 10/30/2024 9:48 AM EST [facility] LAB RDW 13.5 11.0 - 15.0 % LAB HEMETOLOGY METHOD 10/30/2024 9:48 AM [facility] LAB Platelets 212 130 - 400 K/mcL LAB HEMETOLOGY METHOD 10/30/2024 9:48 AM [facility] LAB MPV 9.9 7.0 - 11.0 FL LAB HEMETOLOGY METHOD 10/30/2024 9:48 AM [facility] LAB NRBC 0.0 <1.0 % LAB HEMETOLOGY METHOD 10/30/2024 9:48 AM EST [facility] LAB NRBC Absolute 0.00 <0.10 K/mcL LAB HEMETOLOGY METHOD 10/30/2024 9:48 AM EST [facility] LAB Blood Venous blood specimen / Unknown Venipuncture / Unknown 10/30/2024 5:24 AM EST 10/30/2024 9:33 AM EST us Jose Francisco Morley MD LAB BLOOD ORDERABLES Final Resu lt [facility] [address] [place] [address], documented in this encounter Visit Diagnoses Diagnosis Cerebral infarction, unspecified (CMS/HCC) Essential (primary) hypertension Unspecified essential hypertension documented in this encounter Care Teams Organic Chemistry Teacher Relationship Specialty Start Date End Date Clary Greenwood MD [address] [place] [address] PCP - General 11/30/1992 documented as of this encounter
--- OUTSIDE RECORDS SUMMARY | 2025-01-15 08:12 | XMS_ITS | Encounter Summary ---
Author Organization [facility] Address [address] [place] [address] Care Team Providers Care Complaint Investigator Name Role Phone Clary Greenwood MD Primary Care Provider [phone] Encounter Details Date Type Department Care Team (Late Contact Info) Description 10/22/2024 Lab Requisition [facility] - Main Lab 299 [facility] [place] [address] Jose Francisco Morley MD [address] [place] [phone] Essential (primary) hypertension Social History Tobacco Use [...] 01/24/2025 2:00 PM EST Office Visit Urogynecology [address] [phone] Sarah Carballo MD 580 [facility] 205 [place] [address] 02/13/2025 11:00 AM EDT Office Visit Adult Medicine [address] [place] [address] Clary Greenwood MD [address] [place], [place] 02/20/2025 9:30 AM EDT Office Visit [facility] [place] 1699 [facility] 404 [place] [phone] Frida Londono NP 19 [facility] 45 [place] [address] documented as of this encounter Procedures Procedure Name Priority Date/Time Associated Diagnosis Comments COMPLETE BLOOD COUNT Routine 10/22/2024 6:28 AM EST Essential (primary) hypertension COMPREHENSIVE METABOLIC PANEL Routine 10/22/2024 6:28 AM EST Essential (primary) hypertension documented in this encounter Results * (ABNORMAL) Comprehensive metabolic panel (10/22/2024 6:28 AM EST) Sodium 140 133 - 145 mmol/L LAB CHEMISTRY METHOD 10/22/2024 8:15 AM [facility] Potassium 4.4 3.5 - 5.5 mmol/L LAB CHEMISTRY METHOD 10/22/2024 8:15 AM [facility] Chloride 108 96 - 110 mmol/L LAB CHEMISTRY METHOD 10/22/2024 8:15 AM [facility] CO2 26 21 - 32 mmol/L LAB CHEMISTRY METHOD 10/22/2024 8:15 AM [facility] LAB Anion Gap 6 3 - 11 LAB CHEMISTRY METHOD 10/22/2024 8:15 AM [facility] LAB Glucose 111(H) 70 - 100 mg/dL LAB CHEMISTRY METHOD 10/22/2024 8:15 AM [facility] BUN 20 5 - 25 mg/dL LAB CHEMISTRY METHOD 10/22/2024 8:15 AM [facility] Creatinine 0.80 0.50 - 1.10 mg/dL LAB CHEMISTRY METHOD 10/22/2024 8:15 AM [facility] LAB eGFR 80 >=60 mL/min/1. 73m2 LAB CHEMISTRY METHOD 10/22/2024 8:15 AM [facility] LAB Comment:Calculation based on the??Chronic Kidney Disease Epidemiology Collaboration (CKD-EPI) equation refit??without adjustment for race. BUN/Creatinine Ratio 25.0 LAB CHEMISTRY METHOD 10/22/2024 8:15 AM [facility] Calcium 9.1 8.5 - 10.5 mg/dL LAB CHEMISTRY METHOD 10/22/2024 8:15 AM [facility] AST (SGOT) 34 10 - 42 unit/L LAB CHEMISTRY METHOD 10/22/2024 8:15 AM [facility] ALT (SGPT) 50 10 - 60 unit/L LAB CHEMISTRY METHOD 10/22/2024 8:15 AM [facility] Alkaline Phosphatase 86 42 - 121 unit/L LAB CHEMISTRY METHOD 10/22/2024 8:15 AM [facility] Total Protein 6.8 6.0 - 8.0 g/dL LAB CHEMISTRY METHOD 10/22/2024 8:15 AM [facility] Albumin 3.9 3.2 - 5.0 g/dL LAB CHEMISTRY METHOD 10/22/2024 8:15 AM [facility] Total Bilirubin 0.5 0.0 - 1.4 mg/dL LAB CHEMISTRY METHOD 10/22/2024 8:15 AM [facility] Blood Venous blood specimen / Unknown Venipuncture / Unknown 10/22/2024 6:28 AM EST 10/22/2024 7:28 AM EST us Jose Francisco Morley MD LAB BLOOD ORDERABLES Final Resu lt [facility] [address] [place] [address], * Complete blood count (10/22/2024 6:28 AM EST) [facility] WBC 6.7 4.8 - 10.8 K/mcL LAB HEMETOLOGY METHOD 10/22/2024 7:52 AM [facility] RBC 4.20 3.80 - 4.80 M/mcL LAB HEMETOLOGY METHOD 10/22/2024 7:52 AM EST [facility] Hemoglobin 13.2 11.5 - 16.0 g/dL LAB HEMETOLOGY METHOD 10/22/2024 7:52 AM [facility] Hematocrit 40.0 35.0 - 47.0 % LAB HEMETOLOGY METHOD 10/22/2024 7:52 AM [facility] MCV 94.6 79.0 - 98.0 FL LAB HEMETOLOGY METHOD 10/22/2024 7:52 AM [facility] MCH 31.2 27.0 - 32.0 pcg LAB HEMETOLOGY METHOD 10/22/2024 7:52 AM [facility] MCHC 33.0 32.0 - 37.0 g/dL LAB HEMETOLOGY METHOD 10/22/2024 7:52 AM [facility] RDW 13.6 11.0 - 15.0 % LAB HEMETOLOGY METHOD 10/22/2024 7:52 AM [facility] Platelets 237 130 - 400 K/mcL LAB HEMETOLOGY METHOD 10/22/2024 7:52 AM [facility] MPV 9.6 7.0 - 11.0 FL LAB HEMETOLOGY METHOD 10/22/2024 7:52 AM [facility] NRBC 0.0 <1.0 % LAB HEMETOLOGY METHOD 10/22/2024 7:52 AM [facility] NRBC Absolute 0.00 <0.10 K/mcL LAB HEMETOLOGY METHOD 10/22/2024 7:52 AM EST [facility] Blood Venous blood specimen / Unknown Venipuncture / Unknown 10/22/2024 6:28 AM EST 10/22/2024 7:28 AM EST us Jose Francisco Morley MD LAB BLOOD ORDERABLES Final Resu lt [facility] [address] [place] [address], documented in this encounter Visit Diagnoses Diagnosis Essential (primary) hypertension Unspecified essential hypertension documented in this encounter Care Teams Complaint Investigator Relationship Specialty Start Date End Date Clary Greenwood MD [address] [place] [address] PCP - General 11/30/1992 documented as of this encounter
--- OUTSIDE RECORDS SUMMARY | 2025-01-15 08:12 | XMS_ITS | Encounter Summary ---
Author Organization [facility] Address [address] [place] [address] Care Team Providers Care Preschool Substitute Teacher Name Role Phone Clary Greenwood MD Primary Care Provider [phone] Encounter Details Date Type Department Care Team (Late Contact Info) Description 10/22/2024 Lab Requisition [facility] - Main Lab 299 [facility] [place] [address] Jose Francisco Morley MD [address] [place] [phone] Essential (primary) hypertension Social History Tobacco Use [...] 01/24/2025 2:00 PM EST Office Visit Urogynecology [address] [phone] Sarah Carballo MD 580 [facility] 205 [place] [address] 02/13/2025 11:00 AM EDT Office Visit Adult Medicine [address] [place] [address] Clary Greenwood MD [address] [place], [place] 02/20/2025 9:30 AM EDT Office Visit [facility] [place] 1699 [facility] 404 [place] [phone] Frida Londono NP 19 [facility] 45 [place] [address] documented as of this encounter Procedures Procedure Name Priority Date/Time Associated Diagnosis Comments COMPLETE BLOOD COUNT Routine 10/23/2024 5:28 AM EST Essential (primary) hypertension COMPREHENSIVE METABOLIC PANEL Routine 10/23/2024 5:20 AM EST Essential (primary) hypertension documented in this encounter Results * (ABNORMAL) Complete blood count (10/23/2024 5:28 AM EST) WBC 6.0 4.8 - 10.8 K/mcL LAB HEMETOLOGY METHOD 10/23/2024 8:45 AM [facility] LAB RBC 3.70(L) 3.80 - 4.80 M/mcL LAB HEMETOLOGY METHOD 10/23/2024 8:45 AM [facility] LAB Hemoglobin 11.7 11.5 - 16.0 g/dL LAB HEMETOLOGY METHOD 10/23/2024 8:45 AM [facility] LAB Hematocrit 35.5 35.0 - 47.0 % LAB HEMETOLOGY METHOD 10/23/2024 8:45 AM [facility] LAB MCV 95.4 79.0 - 98.0 FL LAB HEMETOLOGY METHOD 10/23/2024 8:45 AM [facility] LAB MCH 31.5 27.0 - 32.0 pcg LAB HEMETOLOGY METHOD 10/23/2024 8:45 AM EST [facility] LAB MCHC 33.0 32.0 - 37.0 g/dL LAB HEMETOLOGY METHOD 10/23/2024 8:45 AM EST [facility] LAB RDW 13.8 11.0 - 15.0 % LAB HEMETOLOGY METHOD 10/23/2024 8:45 AM [facility] LAB Platelets 208 130 - 400 K/mcL LAB HEMETOLOGY METHOD 10/23/2024 8:45 AM EST [facility] LAB MPV 9.8 7.0 - 11.0 FL LAB HEMETOLOGY METHOD 10/23/2024 8:45 AM [facility] LAB NRBC 0.0 <1.0 % LAB HEMETOLOGY METHOD 10/23/2024 8:45 AM [facility] NRBC Absolute 0.00 <0.10 K/mcL LAB HEMETOLOGY METHOD 10/23/2024 8:45 AM [facility] Blood Venous blood specimen / Unknown Venipuncture / Unknown 10/23/2024 5:28 AM EST 10/23/2024 8:20 AM EST us Jose Francisco Morley MD LAB BLOOD ORDERABLES Final Resu lt [facility] [address] [place] [address], * (ABNORMAL) Comprehensive metabolic panel (10/23/2024 5:20 AM EST) Sodium 142 133 - 145 mmol/L LAB CHEMISTRY METHOD 10/23/2024 9:15 AM EST [facility] Potassium 4.7 3.5 - 5.5 mmol/L LAB CHEMISTRY METHOD 10/23/2024 9:15 AM [facility] Chloride 111(H) 96 - 110 mmol/L LAB CHEMISTRY METHOD 10/23/2024 9:15 AM [facility] CO2 26 21 - 32 mmol/L LAB CHEMISTRY METHOD 10/23/2024 9:15 AM [facility] Anion Gap 5 3 - 11 LAB CHEMISTRY METHOD 10/23/2024 9:15 AM [facility] Glucose 111(H) 70 - 100 mg/dL LAB CHEMISTRY METHOD 10/23/2024 9:15 AM [facility] BUN 28(H) 5 - 25 mg/dL LAB CHEMISTRY METHOD 10/23/2024 9:15 AM [facility] Creatinine 0.88 0.50 - 1.10 mg/dL LAB CHEMISTRY METHOD 10/23/2024 9:15 AM [facility] LAB eGFR 72 >=60 mL/min/1. 73m2 LAB CHEMISTRY METHOD 10/23/2024 9:15 AM [facility] LAB Comment:Calculation based on the??Chronic Kidney Disease Epidemiology Collaboration (CKD-EPI) equation refit??without adjustment for race. BUN/Creatinine Ratio 31.8 LAB CHEMISTRY METHOD 10/23/2024 9:15 AM [facility] Calcium 8.5 8.5 - 10.5 mg/dL LAB CHEMISTRY METHOD 10/23/2024 9:15 AM [facility] AST (SGOT) 22 10 - 42 unit/L LAB CHEMISTRY METHOD 10/23/2024 9:15 AM [facility] ALT (SGPT) 42 10 - 60 unit/L LAB CHEMISTRY METHOD 10/23/2024 9:15 AM [facility] Alkaline Phosphatase 78 42 - 121 unit/L LAB CHEMISTRY METHOD 10/23/2024 9:15 AM [facility] Total Protein 5.9(L) 6.0 - 8.0 g/dL LAB CHEMISTRY METHOD 10/23/2024 9:15 AM [facility] Albumin 3.5 3.2 - 5.0 g/dL LAB CHEMISTRY METHOD 10/23/2024 9:15 AM EST [facility] Total Bilirubin 0.4 0.0 - 1.4 mg/dL LAB CHEMISTRY METHOD 10/23/2024 9:15 AM EST [facility] Blood Venous blood specimen / Unknown Venipuncture / Unknown 10/23/2024 5:20 AM EST 10/23/2024 8:23 AM EST us Jose Francisco Morley MD LAB BLOOD ORDERABLES Final Resu lt [facility] [address] [place] [address], documented in this encounter Visit Diagnoses Diagnosis Essential (primary) hypertension Unspecified essential hypertension documented in this encounter Care Teams Preschool Substitute Teacher Relationship Specialty Start Date End Date Clary Greenwood MD [address] [place] [address] PCP - General 11/30/1992 documented as of this encounter
--- OUTSIDE RECORDS SUMMARY | 2025-01-15 08:12 | XMS_ITS | Data Portability ---
Author Organization [facility] [place] Address [address] [place] [address] Care Team Providers Care Demonstrator Knitting Name Role Phone RONALD AMOS Primary Care Provider RONALD AMOS Referring Provider [phone] RONALD AMOS Primary Care Provider [phone] AMBREEN MARR Greenskeeper Head Assessment Encounter Date Assessment Date Assessment LastModified [...] view 2023 024 [email or web address] [email or web address] [facility], [address], [place], [address], 4 16:12:00 XR, knee, 3 view 2023 024 [email or web address] [facility], [address], [place], [address], 4 15:17:19 XR, wrist, 3 or more view 2023 024 [email or web address] [email or web address] [facility], [address], [place], [address], 4 12:20:33 XR, wrist, 3 or more view 2023 024 [email or web address] [email or web address] [facility], [address], [place], [address], 4 16:59:11 XR, wrist, 3 or more view 2023 024 [email or web address] [email or web address] [facility], [address], [place], [address], 4 15:25:17 Medication Orders None recorded. Patient TargetsNo targets recorded. Patient Instructions Encounter Date Encounter Id Patient Instructions Last Modified By Organization Details Last Modified Time 05/10/2024 [id number] AP, lateral, and patellar radiographs of the [...] Localized, primary osteoarthri tis of the wrist [id number] Active 2022 Rory eMndez MD [address], [place], [address], [place] [facility], P 3 08:49:47 Pain of right knee joint 7875780069521 00 Active 2023 Gonzalo Pope MD [address], [facility], [address], [place] [facility], [facility] 4 14:29:35 Problem Notes None recorded. Procedures Surgical History Date Name Laterality Status Provider Name and Address Organization Details Recorded Time 4 Splint Short Arm 11+ completed Scott Ware [place] [facility], [facility] 12/08/2023 14:43:09 3 ARB wrist/elbow cortisone injection completed Rory Mendez MD [address], [place], [address], [place] [facility], [facility] 09/29/2023 14:34:59 3 ARB wrist/elbow cortisone injection completed Rory Mendez MD [address], [place], [address], [place] [facility] 06/10/2023 08:55:58 Imaging Results None recorded. Procedure Notes None recorded. Medical Equipment None Reported. Allergies Allergen ID Allergen Name Allergen Category Reaction Reaction Severity Criticality Documentation Date Start Date Code Code System Note Provider Name and Address Organization Details Recorded Time 21001 hydrochlo rothiazid e medicatio n Not available Not available Not available 10/27/2023 5487 RxNorm Scott Wheat null, [place] [facility], P 3 14:09:13 11920 hydrocodo ne Not available Not available Not available Not available 10/27/2023 5489 RxNorm Scott Wheat null, [place] [facility], [facility] 3 14:09:31 20628 Levophed medicatio n Not available Not available Not available 10/27/2023 97699 9 RxNorm Scott Wheat null, [place] [facility], P 3 14:12:08 99205 cephalexi n medicatio n Not available Not available Not available 10/27/2023 2231 RxNorm Scott Wheat null, [place] [facility], P 3 14:12:17 23029 sulfameth oxazole / trimethop rim medicatio n Not available Not available Not available 10/27/2023 73069 RxNorm Scott Wheat null, [place] [facility], [facility] 3 14:12:58 02718 Augmentin medicatio n Not available Not available Not available 10/27/2023 27032 2 RxNorm Scott Wheat null, [place] [facility], [facility] 3 14:13:05 25104 meperidin e medicatio n Not available Not available Not available 10/27/2023 6754 RxNorm Scott Wheat null, [place] [facility], [facility] 3 14:13:15 64387 amoxicill in medicatio n Not available Not available Not available 10/27/2023 723 RxNorm Scott Wheat null, [place] [facility], [facility] 3 14:13:20 28473 clavulani c acid Not available Not available Not available Not available 10/27/2023 81962 RxNorm Scott Wheat null, [place] [facility], P 3 14:13:29 01598 codeine medicatio n itching Not available high 10/27/2023 2670 RxNorm Frida Martins null, [place] [facility] 3 15:02:55 72884 tramadol medicatio n itching Not available high 12/09/2023 77681 RxNorm Frida Martins null, [place] [facility], [facility] 4 13:15:41 Medications Name Sig Start [...] Updated DateTime 03/08/2024 162.56 cm 31.8 kg/m2 98740.59 g Scott Ware [place] [facility] 03/08/2024 09:03:55 Date Recorded Body height Provider Name an d Address Organization Details Last Updated DateTime 05/10/2024 162.56 cm Nina Alessandro [facility] 05/10/2024 13:57:32 Social History Question Answer Notes LastModified by Organizat ion Details LastModified Time Tobacco Smoking Status Never Smoker Scott Ware null, [place] [facility] 06/09/2023 14:22:49 What Is Your Level [...] ICD10 Code Diagnosis Note MD RICKY Shi [address] [address] 06/09/2023 14:15:27 06/09/2023 15:21:34 Pain of left wrist 9041328414 59331 M25.532 Localized, primary osteoarthritis of the wrist 806814588 M19.039 Left wrist radioscaph oid joint 92353 MD RICKY Briggs [address] [facility] [place] [address] 07/02/2023 14:22:33 07/02/2023 14:50:08 History of right total knee replacement 6058475462 506127 Z96.651 Aftercare 615784875 Z47. 1 75687 MD RICKY Shi [address] [address] 07/07/2023 14:17:06 07/07/2023 14:36:03 Localized, primary osteoarthritis of the wrist 001055260 M19.039 Left wrist radioscaph oid joint 38344 MD RICKY Shi [address] [address] 09/29/2023 13:06:12 09/29/2023 14:31:32 Localized, primary osteoarthritis of the wrist 371632288 M19.039 Left wrist radioscaph oid joint [address]4799 MD RICKY Shi [address] [address] 10/27/2023 13:35:31 10/27/2023 14:46:38 Localized, primary osteoarthritis of the wrist 950119023 M19.039 Left wrist radioscaph oid joint 50195 MD RICKY Shi [address] [address] 12/08/2023 13:45:57 12/08/2023 14:48:58 Localized, primary osteoarthritis of the wrist 337109108 M19.039 Left wrist radioscaph oid joint 51353 MD GADIEL [address] [address] 12/17/2023 12:51:11 12/17/2023 13:36:01 Postoperative visit 158161470 Z48.89 39596 MD RICKY Shi [address] [address] 12/29/2023 09:58:19 12/29/2023 10:30:35 Pain of left wrist 6108789518 00172 M25.532 Localized, primary osteoarthritis of the wrist 790147059 M19.039 Left wrist radioscaph oid joint 83920 MD RICKY Shi [address] [address] 01/26/2024 10:54:58 01/26/2024 11:23:45 Localized, primary osteoarthritis of the wrist 240768656 M19.039 Left wrist radioscaph oid joint 45864 MD RICKY Shi [address] [address] 03/08/2024 08:52:44 03/08/2024 09:23:30 Pain of left wrist 7769740073 18842 M25.532 Additional diagnosis detail: Pain in left wrist Localized, primary osteoarthritis of the wrist 149135566 M19.039 Left wrist radioscaph oid joint 99473 MD RICKY Briggs [address] [place] [address] 05/10/2024 13:29:20 05/10/2024 14:25:35 History of right total knee replacement 6228151093 568951 Z96.651 Additional diagnosis detail: History of total right knee replacemen t Surgical follow-up 74856 4000 Z47.1 Z96.651 Additional diagnosis detail: Aftercare following right knee joint replacemen t surgery Pain of ri ght knee joint 4985524994 56934 M25.561 Additional diagnosis detail: Pain, joint, knee, right 83781 MD RICKY Shi [address] [address] 05/17/2024 13:47:43 05/17/2024 14:25:41 Pain of left wrist 5498085895 43145 M25.532 Additional diagnosis detail: Pain in left wrist Localized, primary osteoarthritis of the wrist 971488543 M19.039 Left wrist radioscaph oid joint Health Concerns Section Related Observation LastModified by Organization Detai ls LastModified Time None Recorded Concern Status LastModified by Organization Details LastModified Time None Recorded Advance Directives Directive None Recorded Payers Encounter Date Sequence Insurance Name Policy Number Policy Verdugo Covered Member ID Verdugo Member ID Guarantor Name 12/29/2023 1 [place]ICARE [place]: [place] Alethea A Shabbir [id number] 2 Alethea Shabbir 12/29/2023 2 [place] [facility] [employer] 111 Alethea Cristy Shabbir [id number] Alethea Shabbir 01/26/2024 1 MEDICARE [place]: [place] Alethea A Shabbir [id number] 2 Alethea Shabbir 01/26/2024 2 [place] [facility] EMPL[employer]EE PROGRAM 111 Alethea Cristy Shabbir [id number] Alethea Shabbir 03/08/2024 1 MEDICARE B[place]: [place] Alethea Cristy Shabbir [id number] 2 Alethea Shabbir 03/08/2024 2 [place] [facility] [employer] 111 Alethea A Shabbir [id number] Alethea Shabbir 05/10/2024 1 MEDICARE B-[place]: [place] Alethea Cristy Shabbir [id number] 2 Alethea Shabbir 05/10/2024 2 [place] [facility] [employer] 111 Alethea Cristy Shabbir [id number] Alethea Shabbir 05/17/2024 1 MEDICARE B-[place]: NGS Alethea Cristy Shabbir [id number] 2 Alethea Shabbir 05/17/2024 2 [place] [facility] [employer] 111 Alethea A Shabbir [id number] Alethea Shabbir OBGyn Episode No OBEpisode recorded.
--- OUTSIDE RECORDS SUMMARY | 2025-01-15 08:12 | XMS_ITS | Clinical Summary ---
Author Organization [facility] Address [address] [place] [address] Care Team Providers Care Heat And Frost Insulator Name Role Phone Clary Greenwood MD Primary Care Provider [phone] Allergies Active Allergy Reactions Criticality Noted Date [...] this topic Medical Devices Implanted Type Area Planting Material Carrier Device Identifier Shelf Expiration Date Model / Serial / Lot Cement Bone Surg Simplex Radiopq Stry-Howm 9530-5-180-114 092 - [id number] Implanted:Qty: 1 on 01/26/2022 by Gonzalo Pope MD at [facility] Left: Knee [employer] 6191-1-010 / / Cement Bone Surg Simplex Radiopq Stry-Howm 7760-8-835-114 092 - [id number] Implanted:Qty: 1 on 01/26/2022 by Gonzalo Pope MD at [facility] and [facility] Left: Knee [employer] 6191-1-010 / / Knee Bsplt Triathlon Ti Sz 4 Stry-Howm 2066-P-[id number] 543 - [id number] Implanted:Qty: 1 on 01/26/2022 by Gonzalo Pope MD at [facility] and [facility] Left: Knee [employer] [id number] 10/27/2026 5536-B-400 / / [id number] Knee Ptla Asym Tritanium 32x10 Stry-Howm 1530-G-874-606 039 - [id number] Implanted:Qty: 1 on 01/26/2022 by Gonzalo Pope MD at [facility] Left: Knee [employer] [id number] 10/16/2026 5552-L-320 / / [id number] Knee Tib Insrt Cr-X3 2l8u83lo Stry-Howm 6569-T-733-631 525 - [id number] Implanted:Qty: 1 on 01/26/2022 by Gonzalo Pope MD at [facility] Left: Knee [employer] [id number] 02/10/2025 5530-G-411 / / [id number] Knee Fem Bsplt W Pa Stry-Howm 5423-E-[id number] 553 - [id number] Implanted:Qty: 1 on 01/26/2022 by Gonzalo Pope MD at [facility] and Med Left: Knee [employer] [id number] 10/26/2026 5517-F-401 / / [id number] Tibial Bearing Insert Cs 10mm Stry-Howm 1521-J-297-E-7 55588 - [id number] Implanted:Qty: 1 on 06/22/2022 by Gonzalo Pope MD at [facility] and Med Right: Knee [employer] [id number] 05/05/2027 5531-G-410 -E / / [id number] Knee Bsplt Triathlon Ti Sz 4 Stry-Howm 9842-E-719-552 543 - [id number] Implanted:Qty: 1 on 06/22/2022 by Gonzalo Pope MD at [facility] Right: Knee [employer] [id number] 04/09/2027 5536-B-400 / / [id number] Knee Fem Bsplt W Pa Stry-Howm 6463-O-675-645 552 - [id number] Implanted:Qty: 1 on 06/22/2022 by Gonzalo Pope MD at [facility] Right: Knee [employer] [id number] 03/29/2027 5517-F-402 / / [id number] Knee Ptla Asym Tritanium 32x10 Stry-How 8944-J-323-606 039 - [id number] Implanted:Qty: 1 on 06/22/2022 by Gonzalo Pope MD at [facility] Right: Knee [employer] [id number] 04/01/2027 5552-L-320 / / [id number] Explanted Type Area Planting Material Carrier Device Identifier Shelf Expiration Date Model / Serial / Lot Tibial Bearing Insert Cs 10mm StrJobs [employer] 8328-[id number]-997-E-[id number] [id number] - [id number] Explanted:Qty: 1 on 06/22/2022 by Gonzalo Pope MD at [facility] Right: Knee [employer] [id number] 05/04/2027 5531-G-410 -E / / [id number] Advance Directives For more information, please contact: [phone] Documents on File Type Date Recorded Patient Spiral Machine Operator Expl anation Advance Directive and Living Will [...] way: discussion with patient . Care Teams Heat And Frost Insulator Relationship Specialty Start Date End Date Clary Greenwood MD PCP - General Internal Medicine 12/01/21
--- OUTSIDE RECORDS SUMMARY | 2025-01-15 08:12 | XMS_ITS | Encounter Summary ---
Author Organization [facility] Address [address] [place] [address] Care Team Providers Care Enrollment Nurse Name Role Phone Clary Greenwood MD Primary Care Provider [phone] Reason for Visit * Reason Comments Annual Exam Hypertension Hyperlipidemia Edema Cerebrovascular Accident Encounter Details Date Type Department Care Team (Latest Contact Info) Description 12/21/2024 4:00 PM EST Office Visit [facility] Cardiology - [place] [address] [place] [address] [phone] Keshav Araujo MD [address] [address] Pure hypercholesterolemia (Primary Dx); Primary hypertension; Bilateral [...] not included. Cardiology Attending Outpatient Progress Note-12/21/2024 [facility] Government Relations Analyst-Van Patient Name:Alethea Shea Patient : 1955 Referring [...] we can get all the information from [facility]. No other cardiac med changes are needed. Lipids should be rechecked later in the year. Cardiac warning symptoms of concern were discussed with her at length. I would like her to return in 2 months time and see our HOSIERY OPERATOR. Her diuretic may be able to be [...] review all of the results from her [facility] admission.The mechanism certainly seems as if this was related to uncontrolled hypertension. Hyperlipidemia (E78.0)- Appropriate half-way diet and regular exercise are advised. Periodic [...] as an outpatient . Keshav Araujo MD [facility] 12/21/2024 4:14 PM EST Office [phone] Current Outpatient Medications Medication Sig Dispense Refill [...] Social History Narrative , 3 children Work [employer], [employer] Family History Problem Relation Name Age of [...] 2:00 PM EST Office Visit Urogynecology - [address] [phone] Sarah Carballo MD [address] [facility] [address] [place] [address] 02/13/2025 11:00 AM EDT Office Visit Adult Medicine [facility] [address] [place] [phone] Clary Greenwood MD [address] [place] [address] 02/20/2025 9:30 AM EDT Office Visit [facility] Cardiology - [place] 1699 [facility] [address] [place] [address] Frida Londono NP 19 [facility] [address] [place] [address] documented as of this encounter Procedures Procedure [...] documented as of this encounter Care Teams Enrollment Nurse Relationship Specialty Start Date End Date Clary Greenwood MD [address] [place] [address] PCP - General 11/30/1992 documented as of this encounter
--- OUTSIDE RECORDS SUMMARY | 2025-01-15 08:12 | XMS_ITS | Encounter Summary ---
Author Organization [facility] Address [address] [place] [address] Care Team Providers Care Advertising Assistant Name Role Phone Clary Greenwood MD Primary Care Provider [phone] Encounter Details Date Type Department Care Team (Late Contact Info) Description 10/25/2024 Lab Requisition [facility] - Main Lab 299 [facility] [place] [address] Jose Francisco Morley MD [address] [place] [address] Cerebral infarction, unspecified (CMS/HCC); Essential [...] 01/24/2025 2:00 PM EST Office Visit Urogynecology [address] [phone] Sarah Carballo MD 580 [facility] [address] [place] [address] 02/13/2025 11:00 AM EDT Office Visit Adult Medicine [facility] [address] [place] [phone] Clary Greenwood MD [address] [place], [place] 02/20/2025 9:30 AM EDT Office Visit Central [facility] Cardiology - [place] 1699 [facility] [address] [place] [address] Frida Londono NP 19 [facility] [address] [place] [address] documented as of this encounter Procedures Procedure [...] mmol/L LAB CHEMISTRY METHOD 10/26/2024 9:[address] [facility] Potassium 5.0 3.5 - 5.5 mmol/L LAB CHEMISTRY METHOD 10/26/2024 9:[address] [facility] Chloride 111(H) 96 - 110 mmol/L LAB CHEMISTRY METHOD 10/26/2024 9:[address] [facility] CO2 29 21 - 32 mmol/L LAB CHEMISTRY METHOD 10/26/2024 9:[address] [facility] Anion Gap 4 3 - 11 LAB CHEMISTRY METHOD 10/26/2024 9:[address] [facility] Glucose 102(H) 70 - 100 mg/dL LAB CHEMISTRY METHOD 10/26/2024 9:[address] [facility] BUN 21 5 - 25 mg/dL LAB CHEMISTRY METHOD 10/26/2024 9:[address] [facility] Creatinine 0.84 0.50 - 1.10 mg/dL LAB CHEMISTRY METHOD 10/26/2024 9:[address] [facility] eGFR 76 >=60 mL/min/1. 73m2 LAB CHEMISTRY METHOD 10/26/2024 9:[address] [facility] Comment:Calculation based on the??Chronic Kidney Disease Epidemiology Collaboration (CKD-EPI) equation refit??without adjustment for race. BUN/Creatinine Ratio 25.0 LAB CHEMISTRY METHOD 10/26/2024 9:[address] [facility] Calcium 9.4 8.5 - 10.5 mg/dL LAB CHEMISTRY METHOD 10/26/2024 9:[address] [facility] Blood Venous blood specimen / Unknown Venipuncture / Unknown 10/26/2024 5:19 AM EST 10/26/2024 8:15 AM EST us Jose Francisco Morley MD LAB BLOOD ORDERABLES Final Resu lt [facility] [address] [place] [address], [place] [phone] * (ABNORMAL) Complete blood count (10/26/2024 5:19 AM EST) WBC 6.2 4.8 - 10.8 K/mcL LAB HEMETOLOGY METHOD 10/26/2024 8:[address] [facility] RBC 3.70(L) 3.80 - 4.80 M/mcL LAB HEMETOLOGY METHOD 10/26/2024 8:[address] [facility] Hemoglobin 11.6 11.5 - 16.0 g/dL LAB HEMETOLOGY METHOD 10/26/2024 8:[address] [facility] Hematocrit 35.4 35.0 - 47.0 % LAB HEMETOLOGY METHOD 10/26/2024 8:[address] [facility] MCV 96.5 79.0 - 98.0 FL LAB HEMETOLOGY METHOD 10/26/2024 8:[address] [facility] MCH 31.6 27.0 - 32.0 pcg LAB HEMETOLOGY METHOD 10/26/2024 8:[address] [facility] MCHC 32.8 32.0 - 37.0 g/dL LAB HEMETOLOGY METHOD 10/26/2024 8:[address] [facility] RDW 13.6 11.0 - 15.0 % LAB HEMETOLOGY METHOD 10/26/2024 8:[address] [facility] Platelets 217 130 - 400 K/mcL LAB HEMETOLOGY METHOD 10/26/2024 8:[address] [facility] MPV 9.9 7.0 - 11.0 FL LAB HEMETOLOGY METHOD 10/26/2024 8:[address] [facility] NRBC 0.0 <1.0 % LAB HEMETOLOGY METHOD 10/26/2024 8:[address] [facility] NRBC Absolute 0.00 <0.10 K/mcL LAB HEMETOLOGY METHOD 10/26/2024 8:[address] [facility] Blood Venous blood specimen / Unknown Venipuncture / Unknown 10/26/2024 5:19 AM EST 10/26/2024 8:15 AM EST us Jose Francisco Morley MD LAB BLOOD ORDERABLES Final Resu lt [facility] [address] [place] [address], documented in this encounter Visit Diagnoses Diagnosis Cerebral infarction, unspecified (CMS/HCC) Essential (primary) hypertension Unspecified essential hypertension documented in this encounter Care Teams Advertising Assistant Relationship Specialty Start Date End Date Clary Greenwood MD [address] [place] [address] PCP - General 11/30/1992 documented as of this encounter
--- OUTSIDE RECORDS SUMMARY | 2025-01-15 08:12 | XMS_ITS | Encounter Summary ---
Author Organization [facility] Address [address] [place] [address] Care Team Providers Care Switch Box Installer Name Role Phone Clary Greenwood MD Primary Care Provider [phone] Encounter Details Date Type Department Care Team (Late st Contact Info) Description 10/24/2024 Lab Requisition [facility] - Main Lab 299 [facility] [place] [address] Jose Francisco Morley MD [address] [place] [address] Other specified abnormal findings of [...] 2:00 PM EST Office Visit Urogynecology - [address] [phone] Sarah Carballo MD 580 [facility] [address] [place] [address] 02/13/2025 11:00 AM EDT Office Visit Adult Medicine [facility] [address] [place], [place] [phone] Clary Greenwood MD [address] [place], [place] 02/20/2025 9:30 AM EDT Office Visit [facility] Cardiology - [place] 1699 [facility] [address] [place] [phone] Frida Londono NP 19 [facility] [address] [place] [address] documented as of this encounter Procedures Procedure [...] 11 LAB CHEMISTRY METHOD 10/24/2024 11:06 AM [facility] Glucose 103(H) 70 - 100 mg/dL LAB CHEMISTRY METHOD 10/24/2024 11:06 AM [facility] BUN 24 5 - 25 mg/dL LAB CHEMISTRY METHOD 10/24/2024 11:06 AM [facility] Creatinine 0.73 0.50 - 1.10 mg/dL LAB CHEMISTRY METHOD 10/24/2024 11:06 AM [facility] eGFR 90 >=60 mL/min/1. 73m2 LAB CHEMISTRY METHOD 10/24/2024 11:06 AM [facility] Comment:Calculation based on the??Chronic Kidney Disease Epidemiology Collaboration (CKD-EPI) equation refit??without adjustment for race. BUN/Creatinine Ratio 32.9 LAB CHEMISTRY METHOD 10/24/2024 11:06 AM [facility] Calcium 8.7 8.5 - 10.5 mg/dL LAB CHEMISTRY METHOD 10/24/2024 11:06 AM [facility] AST (SGOT) 18 10 - 42 unit/L LAB CHEMISTRY METHOD 10/24/2024 11:06 AM [facility] ALT (SGPT) 36 10 - 60 unit/L LAB CHEMISTRY METHOD 10/24/2024 11:06 AM [facility] Alkaline Phosphatase 83 42 - 121 unit/L LAB CHEMISTRY METHOD 10/24/2024 11:06 AM [facility] Total Protein 5.6(L) 6.0 - 8.0 g/dL LAB CHEMISTRY METHOD 10/24/2024 11:06 AM [facility] Albumin 3.3 3.2 - 5.0 g/dL LAB CHEMISTRY METHOD 10/24/2024 11:06 AM [facility] Total Bilirubin 0.3 0.0 - 1.4 mg/dL LAB CHEMISTRY METHOD 10/24/2024 11:06 AM [facility] Blood Venous blood specimen / Unknown Venipuncture / Unknown 10/24/2024 5:26 AM EST 10/24/2024 9:59 AM EST us Jose Francisco Morley MD LAB BLOOD ORDERABLES Final Resu lt [facility] [address] [place] [address], [place] [phone] * (ABNORMAL) Complete blood count (10/24/2024 5:26 AM EST) WBC 6.1 4.8 - 10.8 K/mcL LAB HEMETOLOGY METHOD 10/24/2024 11:00 AM [facility] RBC 3.70(L) 3.80 - 4.80 M/mcL LAB HEMETOLOGY METHOD 10/24/2024 11:00 AM [facility] Hemoglobin 11.4(L) 11.5 - 16.0 g/dL LAB HEMETOLOGY METHOD 10/24/2024 11:00 AM [facility] Hematocrit 35.5 35.0 - 47.0 % LAB HEMETOLOGY METHOD 10/24/2024 11:00 AM [facility] MCV 96.5 79.0 - 98.0 FL LAB HEMETOLOGY METHOD 10/24/2024 11:00 AM [facility] MCH 31.0 27.0 - 32.0 pcg LAB HEMETOLOGY METHOD 10/24/2024 11:00 AM [facility] MCHC 32.1 32.0 - 37.0 g/dL LAB HEMETOLOGY METHOD 10/24/2024 11:00 AM [facility] RDW 13.9 11.0 - 15.0 % LAB HEMETOLOGY METHOD 10/24/2024 11:00 AM [facility] Platelets 216 130 - 400 [...] Resu lt [facility] [address] [place] [address], documented in this encounter Visit Diagnoses Diagnosis Other specified abnormal findings of blood chemistry Hyperlipidemia, unspecified Cerebral infarction, unspecified (CMS/HCC) Essential (primary) hypertension Unspecified essential hypertension documented in this encounter Care Teams Switch Box Installer Relationship Specialty Start Date End Date Clary Greenwood MD [address] [place] [address] PCP - General 11/30/1992 documented as of this encounter
[2025-01-15 08:24] VITALS: BP 140/80; PULSE 81; TEMP 36.7; O2SAT 96
--- NOTE | 2025-01-15 08:24 | AM.OFFWIN_ITS ---
Intake Vital Signs 01/15/25 08:24 Weight 188 lb BP 140/80 H Blood Pressure Location Rt brachial Position Sitting Pulse 81 Pulse Source Pulse Oximeter Temp 98.1 F Temp Source Oral Pulse Oximetry (%) 96 Oxygen Delivery Method Room Air Intake Visit Reasons: EP C-Diff from antibiotics? Intake Note: Patient here for very bad diarrhea that has been present since a few days after she started her antibiotics for pneumonia and bronchitis. Patient Tobacco Use Status: Never used Tobacco Allergies hydrochlorothiazide Allergy (Mild, Verified 01/15/25 08:27) Unknown hydrocodone Allergy (Mild, Verified 01/15/25 08:27) Unknown sulfacetamide [From Sulfacet-R] Allergy (Mild, Verified 01/15/25 08:27) Unknown sulfur [From Sulfacet-R] Allergy (Mild, Verified 01/15/25 08:27) Unknown Do you need a note to return to daycare/school/sports/work: No HPI HPI Comments History of Present Illness Details History - The patient is a 69-year-old female pr esenting with concerns regarding a C. difficile infection, recognized due to worsening symptoms following antibiotic treatment for pneumonia and bronchitis. - The patient experienced the onset of d iarrhea, noted two days after starting antibiotics, characterized by watery consistency and an identifiable malodor, though not blood-tinged or black. - Past similar episodes of C. difficile infection have led to significant distress and previous emergency department visits due to severe symptoms. - Antibiotic course involved Amoxicillin -Clavulanate and Azithromycin, with Prednisone recently discontinued. - Proactive self-management of gastroint estinal health includes initiating probiotics and consuming yogurt. - Persistent coughing after antibiotic c ourse, with previous ineffective treatments. Consideration for Mary D discussed. - September stroke influenced by elevated blood pressure related to stress, followed by therapy for recovery. - The patient reports no history of asth ma, COPD, or smoking. Physical Exam General: Cooperative, healthy appearing, comfortable and no acute distress Orientation/consciousness: Patient oriented x3 Limitations: No limitations Head: Normal to inspection Ears: Hearing grossly normal bilaterally, external ears normal and TM's normal bilaterally Nose: Normal external nose present, Normal nares present and No nasal discharge present Face and sinus: Normal facial exam and Yes sinuses nontender Mouth: Normal oral and palatal mucosa present and moist mucous membranes Throat: Yes tonsils normal, Yes uvula midline. Posterior oropharynx erythema Eyes: Appearance normal, both eyes and all related structures Neck: Normal visual inspection Respiratory: Clear to auscultation bilaterally. Normal respiratory effort, able to speak in complete sentences, Actively coughing, no respiratory distress, not tachypneic, no tripod positioning and no use of accessory muscles Cardiovascular: Regular rate and rhythm. Normal S1 and S2 Skin: No rashes or lesions noted Neuro: Patient oriented x3 Extremities: Normal to inspection and Yes no clubbing, cyanosis or edema PFSH Social History Patient Tobacco Use Status: Never used Tobacco Review of Systems Const All systems reviewed & are unremarkable except as noted in HPI and below Physical Exam Vital Signs: Last Vital Signs Temp 98.1 F 01/15/25 08:24 Pulse 81 01/15/25 08:24 BP 140/80 H 01/15/25 08:24 Pulse Ox 96 01/15/25 08:24 Oxygen Delivery Method Room Air 01/15/25 08:24 Assessment & Plan Assessment & Plan (1) Diarrhea: Code(s): R19.7 - Diarrhea, unspecified Qualifiers: Diarrhea type: presumed infectious Qualified Code(s): R19.7 - Diarrhea, unspecified Plan: Diagnostic testing has been initiated to confirm C. difficile. Plan to administer Vancomycin 125mg PO Q6H x10 days pending confirmation due to manageable side effect profile. (2) URI, acute: Code(s): J06.9 - Acute upper respiratory infection, unspecified Plan: With noted improvement in pulmonary function, VSS, pt well appearing and lung sounds improved from last PE notes, I recommended cessation of antibiotics to mitigate further digestive disturbance and aimed at microbiota recovery. Sent inhaler to pharmacy. Proposed Mary D and inhaler use to alleviate persisting bronchitis-related symptoms, especially beneficial for nocturnal discomfort. Rest, ibuprofen and fluids. Plan Patient was informed and verbally consented to the use of an ambient scribe for clinic note documentation during this visit Orders: Orders CDiff Gene PCR Today R19.7 - Diarrhea, unspecified Medications: New albuterol sulfate 90 mcg/actuation 2 puffs inhalation Q6H PRN 8.5 grams 0RF shortness of breath or wheezing or cough Coding Level of Care Code New Pt Level 4 (19186) Diagnoses Diarrhea of presumed infectious origin R19.7 Diarrhea type: presumed infectious URI, acute J06.9
== END 2025-01-15 09:01 | disposition home or self-care (01) ==
PROVIDERS: PCP Internal Medicine; Visit Provider Physician Assistant
DX: R19.7 Diarrhea, unspecified (principal); J06.9 Acute upper respiratory infection, unspecified

== ENCOUNTER → 2025-01-15 08:10 | Outpatient (BNVA) | payer MEDICARE, BC, SELFPAY | PROVIDERS: PCP Internal Medicine | DX: R19.7 Diarrhea, unspecified (principal); J06.9 Acute upper respiratory infection, unspecified | CPT/HCPCS: 99202 ==

== ENCOUNTER 2025-01-15 09:13 | Outpatient (REF) | payer MEDICARE, BC, SELFPAY ==
--- OUTSIDE RECORDS SUMMARY | 2025-01-15 10:23 | XMS_ITS | Encounter Summary ---
Author Organization [facility] Address [address] [place] [address] Care Team Providers Care Recording Studio Intern Name Role Phone Clary Greenwood MD Primary Care Provider [phone] Encounter Details Date Type Department Care Team (Late Contact Info) Description 10/25/2024 Lab Requisition [facility] - Main Lab 299 [facility] [place] [address] Jose Francisco Morley MD [address] [place] [address] Cerebral infarction, unspecified (CMS/HCC); Essential [...] 01/24/2025 2:00 PM EST Office Visit Urogynecology [address] [phone] Sarah Carballo MD 580 [facility] [address] [place] [address] 02/13/2025 11:00 AM EDT Office Visit Adult Medicine [facility] [address] [place] [address] Clary Greenwood MD [address] [place] 02/20/2025 9:30 AM EDT Office Visit [facility] Cardiology - [place] 1699 [facility] [address] [place] [address] Frida Londono NP 19 [facility] 45 [place] [address] documented as of this encounter Procedures Procedure [...] mmol/L LAB CHEMISTRY METHOD 10/26/2024 9:07 AM [facility] Potassium 5.0 3.5 - 5.5 mmol/L LAB CHEMISTRY METHOD 10/26/2024 9:07 AM [facility] Chloride 111(H) 96 - 110 mmol/L LAB CHEMISTRY METHOD 10/26/2024 9:07 AM [facility] CO2 29 21 - 32 mmol/L LAB CHEMISTRY METHOD 10/26/2024 9:07 AM [facility] Anion Gap 4 3 - 11 LAB CHEMISTRY METHOD 10/26/2024 9:07 AM [facility] Glucose 102(H) 70 - 100 mg/dL LAB CHEMISTRY METHOD 10/26/2024 9:07 AM EST [facility] BUN 21 5 - 25 mg/dL LAB CHEMISTRY METHOD 10/26/2024 9:07 AM [facility] Creatinine 0.84 0.50 - 1.10 mg/dL LAB CHEMISTRY METHOD 10/26/2024 9:07 AM [facility] eGFR 76 >=60 mL/min/1. 73m2 LAB CHEMISTRY METHOD 10/26/2024 9:07 AM [facility] Comment:Calculation based on the??Chronic Kidney Disease Epidemiology Collaboration (CKD-EPI) equation refit??without adjustment for race. BUN/Creatinine Ratio 25.0 LAB CHEMISTRY METHOD 10/26/2024 9:07 AM [facility] Calcium 9.4 8.5 - 10.5 mg/dL LAB CHEMISTRY METHOD 10/26/2024 9:07 AM [facility] Blood Venous blood specimen / Unknown Venipuncture / Unknown 10/26/2024 5:19 AM EST 10/26/2024 8:15 AM EST us Jose Francisco Morley MD LAB BLOOD ORDERABLES Final Resu lt [facility] [address] [place] [address], [place] [phone] * (ABNORMAL) Complete blood count (10/26/2024 5:19 AM EST) WBC 6.2 4.8 - 10.8 K/mcL LAB HEMETOLOGY METHOD 10/26/2024 8:38 AM [facility] RBC 3.70(L) 3.80 - 4.80 M/mcL LAB HEMETOLOGY METHOD 10/26/2024 8:38 AM [facility] Hemoglobin 11.6 11.5 - 16.0 g/dL LAB HEMETOLOGY METHOD 10/26/2024 8:38 AM [facility] Hematocrit 35.4 35.0 - 47.0 % LAB HEMETOLOGY METHOD 10/26/2024 8:38 AM [facility] MCV 96.5 79.0 - 98.0 FL LAB HEMETOLOGY METHOD 10/26/2024 8:38 AM [facility] MCH 31.6 27.0 - 32.0 pcg LAB HEMETOLOGY METHOD 10/26/2024 8:38 AM [facility] MCHC 32.8 32.0 - 37.0 g/dL LAB HEMETOLOGY METHOD 10/26/2024 8:38 AM [facility] RDW 13.6 11.0 - 15.0 % LAB HEMETOLOGY METHOD 10/26/2024 8:38 AM [facility] Platelets 217 130 - 400 K/mcL LAB HEMETOLOGY METHOD 10/26/2024 8:38 AM [facility] MPV 9.9 7.0 - 11.0 FL LAB HEMETOLOGY METHOD 10/26/2024 8:38 AM [facility] NRBC 0.0 <1.0 % LAB HEMETOLOGY METHOD 10/26/2024 8:38 AM [facility] NRBC Absolute 0.00 <0.10 K/mcL LAB HEMETOLOGY METHOD 10/26/2024 8:38 AM [facility] Blood Venous blood specimen / Unknown Venipuncture / Unknown 10/26/2024 5:19 AM EST 10/26/2024 8:15 AM EST us Jose Francisco Morley MD LAB BLOOD ORDERABLES Final Resu lt [facility] [address] [place] [address], documented in this encounter Visit Diagnoses Diagnosis Cerebral infarction, unspecified (CMS/HCC) Essential (primary) hypertension Unspecified essential hypertension documented in this encounter Care Teams Recording Studio Intern Relationship Specialty Start Date End Date Clary Greenwood MD [address] [place] [address] PCP - General 11/30/1992 documented as of this encounter
--- OUTSIDE RECORDS SUMMARY | 2025-01-15 10:23 | XMS_ITS | Clinical Summary ---
Author Organization [facility] Address [address] [place] [address] Care Team Providers Care Bulk Cooler Installer Name Role Phone Clary Greenwood MD Primary Care Provider [phone] Allergies Active Allergy Reactions Criticality Noted Date [...] this topic Medical Devices Implanted Type Area Hardwood Faller Device Identifier Shelf Expiration Date Model / Serial / Lot Cement Bone Surg Simplex Radiopq Stry-Howm [id number] [id number] - [id number] Implanted:Qty: 1 on 01/26/2022 by Gonzalo Pope MD at [facility] and [facility] Left: Knee [employer] 6191-1-010 / / Cement Bone Surg Simplex Radiopq Stry-Howm [id number] 092 - [id number] Implanted:Qty: 1 on 01/26/2022 by Gonzalo Pope MD at [facility] and [facility] Left: Knee [employer] 6191-1-010 / / Knee Bsplt Triathlon Ti Sz 4 Stry-Howm [id number] 543 - [id number] Implanted:Qty: 1 on 01/26/2022 by Gonzalo Pope MD at [facility] and [facility] Left: Knee [employer] [id number] 10/27/2026 5536-B-400 / / [id number] Knee Ptla Asym Tritanium 32x10 Stry-Howm 0393-[id number]-[id number] 039 - [id number] Implanted:Qty: 1 on 01/26/2022 by Gonzalo Pope MD at [facility] and [facility] Left: Knee [employer] [id number] 10/16/2026 5552-L-320 / / [id number] Knee Tib Insrt Cr-X3 [id number] Stry-Howm 4233-[id number] 525 - [id number] Implanted:Qty: 1 on 01/26/2022 by Gonzalo Pope MD at [facility] and [facility] Left: Knee [employer] [id number] 02/10/2025 5530-G-411 / / [id number] Knee Fem Bsplt W Pa Stry-Howm 4106-[id number]-[id number] 553 - [id number] Implanted:Qty: 1 on 01/26/2022 by Gonzalo Pope MD at [facility] and Med Left: Knee [employer] [id number] 10/26/2026 5517-F-401 / / [id number] Tibial Bearing Insert Cs 10mm Stry-Howm 0235-[id number]-[id number] - [id number] Implanted:Qty: 1 on 06/22/2022 by Gonzalo Pope MD at [facility] and Med Right: Knee [employer] [id number] 05/05/2027 5531-G-410 -E / / [id number] Knee Bsplt Triathlon Ti Sz 4 Stry-Howm 8813-Q-[id number] 543 - [id number] Implanted:Qty: 1 on 06/22/2022 by Gonzalo Pope MD at [facility] and [facility] Right: Knee [employer] [id number] 04/09/2027 5536-B-400 / / [id number] Knee Fem Bsplt W Pa Stry-Howm 1472-[id number]-[id number] 552 - [id number] Implanted:Qty: 1 on 06/22/2022 by Gonzalo Pope MD at [facility] and [facility] Right: Knee [employer] [id number] 03/29/2027 5517-F-402 / / [id number] Knee Ptla Asym Tritanium 32x10 Stry-How 3985-P-[id number] 039 - [id number] Implanted:Qty: 1 on 06/22/2022 by Gonzalo Pope MD at [facility] and [facility] Right: Knee [employer] [id number] 04/01/2027 5552-L-320 / / [id number] Explanted Type Area Hardwood Faller Device Identifier Shelf Expiration Date Model / Serial / Lot Tibial Bearing Insert Cs 10mm [employer] 7600-[id number]-758-E-[id number] - [id number] Explanted:Qty: 1 on 06/22/2022 by Gonzalo Pope MD at [facility] and [facility] Right: Knee [employer] [id number] 05/04/2027 5531-G-410 -E / / [id number] Advance Directives For more information, please contact: [phone] Documents on File Type Date Recorded Patient Editor Department Expl anation Advance Directive and Living Will [...] way: discussion with patient . Care Teams Bulk Cooler Installer Relationship Specialty Start Date End Date Clary Greenwood MD PCP - General Internal Medicine 12/01/21
--- OUTSIDE RECORDS SUMMARY | 2025-01-15 10:23 | XMS_ITS | Encounter Summary ---
Author Organization [facility] Address [address] [place] [address] Care Team Providers Care Swatch Clerk Name Role Phone Clary Greenwood MD Primary Care Provider Reason for Visit * Reason Comments Annual Exam Hypertension Hyperlipidemia Edema Cerebrovascular Accident Encounter Details Date Type Department Care Team (Latest Contact Info) Description 12/21/2024 4:00 PM EST Office Visit [facility] Cardiology - [place] [address] [place] [phone] Keshav Araujo MD [address] [address] Pure hypercholesterolemia (Primary Dx); Primary hypertension; Bilateral [...] not included. Cardiology Attending Outpatient Progress Note-12/21/2024 [facility] Provider Network Manager-Van Patient Name:Alethea Shea Patient : 1955 Referring [...] we can get all the information from [facility]. No other cardiac med changes are needed. Lipids should be rechecked later in the year. Cardiac warning symptoms of concern were discussed with her at length. I would like her to return in 2 months time and see our ENAMEL APPLIER. Her diuretic may be able to be [...] review all of the results from her [facility] admission.The mechanism certainly seems as if this was related to uncontrolled hypertension. Hyperlipidemia (E78.0)- Appropriate senior care diet and regular exercise are advised. Periodic [...] as an outpatient . Keshav Araujo MD [facility] 12/21/2024 4:14 PM EST Office [phone] Current Outpatient Medications Medication Sig Dispense Refill [...] Social History Narrative , 3 children Work [employer] Family History Problem Relation Name Age of [...] 2:00 PM EST Office Visit Urogynecology - [address] [phone] Sarah Carballo MD 580 [facility] [address] [place] [address] 02/13/2025 11:00 AM EDT Office Visit Adult Medicine [facility] [address] [place] [address] Clary Greenwood MD [address] [place] [address] 02/20/2025 9:30 AM EDT Office Visit [facility] Cardiology - [place] 1699 [facility] [address] [place] [address] Frida Londono NP 19 [facility] [address] [place] [address] documented as of this encounter Procedures Procedure [...] documented as of this encounter Care Teams Swatch Clerk Relationship Specialty Start Date End Date Clary Greenwood MD [address] [place] [address] PCP - General 11/30/1992 documented as of this encounter
--- OUTSIDE RECORDS SUMMARY | 2025-01-15 10:23 | XMS_ITS | Encounter Summary ---
Author Organization [facility] Address [address] [place] [address] Care Team Providers Care Animal Shelter Supervisor Name Role Phone Clary Greenwood MD Primary Care Provider [phone] Encounter Details Date Type Department Care Team (Late Contact Info) Description 10/29/2024 Lab Requisition [facility] - Main Lab 299 [facility] [place] [address] Jose Francisco Morley MD [address] [place] [address] Cerebral infarction, unspecified (CMS/HCC); Essential [...] 01/24/2025 2:00 PM EST Office Visit Urogynecology [address] [phone] Sarah Carballo MD 580 [facility] [address] [place] [address] 02/13/2025 11:00 AM EDT Office Visit Adult Medicine [facility] [address] [place] [address] Clary Greenwood MD [address] [place], [place] 02/20/2025 9:30 AM EDT Office Visit [facility] Cardiology - [place] 1699 [facility] [address] [place] [address] Frida Londono NP 19 [facility] [address] [place] [address] documented as of this encounter Procedures Procedure [...] mmol/L LAB CHEMISTRY METHOD 10/30/2024 10:15 AM [facility] Potassium 4.9 3.5 - 5.5 mmol/L LAB CHEMISTRY METHOD 10/30/2024 10:15 AM [facility] Chloride 109 96 - 110 mmol/L LAB CHEMISTRY METHOD 10/30/2024 10:15 AM [facility] CO2 28 21 - 32 mmol/L LAB CHEMISTRY METHOD 10/30/2024 10:15 AM [facility] Anion Gap 5 3 - 11 LAB CHEMISTRY METHOD 10/30/2024 10:15 AM [facility] Glucose 107(H) 70 - 100 mg/dL LAB CHEMISTRY METHOD 10/30/2024 10:15 AM [facility] BUN 17 5 - 25 mg/dL LAB CHEMISTRY METHOD 10/30/2024 10:15 AM [facility] Creatinine 0.66 0.50 - 1.10 mg/dL LAB CHEMISTRY METHOD 10/30/2024 10:15 AM [facility] eGFR 96 >=60 mL/min/1. 73m2 LAB CHEMISTRY METHOD 10/30/2024 10:15 AM [facility] Comment:Calculation based on the??Chronic Kidney Disease Epidemiology Collaboration (CKD-EPI) equation refit??without adjustment for race. BUN/Creatinine Ratio 25.8 LAB CHEMISTRY METHOD 10/30/2024 10:15 AM [facility] Calcium 9.0 8.5 - 10.5 mg/dL LAB CHEMISTRY METHOD 10/30/2024 10:15 AM [facility] AST (SGOT) 12 10 - 42 unit/L LAB CHEMISTRY METHOD 10/30/2024 10:15 AM [facility] ALT (SGPT) 24 10 - 60 unit/L LAB CHEMISTRY METHOD 10/30/2024 10:15 AM [facility] Alkaline Phosphatase 90 42 - 121 unit/L LAB CHEMISTRY METHOD 10/30/2024 10:15 AM [facility] Total Protein 5.8(L) 6.0 - 8.0 g/dL LAB CHEMISTRY METHOD 10/30/2024 10:15 AM [facility] Albumin 3.3 3.2 - 5.0 g/dL LAB CHEMISTRY METHOD 10/30/2024 10:15 AM [facility] Total Bilirubin 0.4 0.0 - 1.4 mg/dL LAB CHEMISTRY METHOD 10/30/2024 10:15 AM [facility] Blood Venous blood specimen / Unknown Venipuncture / Unknown 10/30/2024 5:24 AM EST 10/30/2024 9:25 AM EST Jose Francisco Morley MD LAB BLOOD ORDERABLES Final Resu lt [facility] [address] [place] [address], * (ABNORMAL) Complete blood count (10/30/2024 5:24 AM EST) WBC 5.9 4.8 - 10.8 K/mcL LAB HEMETOLOGY METHOD 10/30/2024 9:48 AM EST [facility] RBC 3.70(L) 3.80 - 4.80 M/mcL LAB HEMETOLOGY METHOD 10/30/2024 9:48 AM [facility] Hemoglobin 11.5 11.5 - 16.0 g/dL LAB HEMETOLOGY METHOD 10/30/2024 9:48 AM [facility] Hematocrit 35.5 35.0 - 47.0 % LAB HEMETOLOGY METHOD 10/30/2024 9:48 AM EST [facility] MCV 96.2 79.0 - 98.0 FL LAB HEMETOLOGY METHOD 10/30/2024 9:48 AM [facility] MCH 31.2 27.0 - 32.0 pcg LAB HEMETOLOGY METHOD 10/30/2024 9:48 AM [facility] MCHC 32.4 32.0 - 37.0 g/dL LAB HEMETOLOGY METHOD 10/30/2024 9:48 AM EST [facility] RDW 13.5 11.0 - 15.0 % LAB HEMETOLOGY METHOD 10/30/2024 9:48 AM [facility] Platelets 212 130 - 400 K/mcL LAB HEMETOLOGY METHOD 10/30/2024 9:48 AM [facility] MPV 9.9 7.0 - 11.0 FL LAB HEMETOLOGY METHOD 10/30/2024 9:48 AM [facility] NRBC 0.0 <1.0 % LAB HEMETOLOGY METHOD 10/30/2024 9:48 AM EST [facility] NRBC Absolute 0.00 <0.10 K/mcL LAB HEMETOLOGY METHOD 10/30/2024 9:48 AM EST [facility] Blood Venous blood specimen / Unknown Venipuncture / Unknown 10/30/2024 5:24 AM EST 10/30/2024 9:33 AM EST us Jose Francisco Morley MD LAB BLOOD ORDERABLES Final Resu lt [facility] [address] [place] [address], documented in this encounter Visit Diagnoses Diagnosis Cerebral infarction, unspecified (CMS/HCC) Essential (primary) hypertension Unspecified essential hypertension documented in this encounter Care Teams Animal Shelter Supervisor Relationship Specialty Start Date End Date Clary Greenwood MD [address] [place] [address] PCP - General 11/30/1992 documented as of this encounter
--- OUTSIDE RECORDS SUMMARY | 2025-01-15 10:23 | XMS_ITS | Encounter Summary ---
Author Organization [facility] Address [address] [place] [address] Care Team Providers Care Compliance Consultant Name Role Phone Clary Greenwood MD Primary Care Provider [phone] Encounter Details Date Type Department Care Team (Late st Contact Info) Description 10/24/2024 Lab Requisition [facility] - Main Lab 299 [facility] [place] [address] Jose Francisco Morley MD [address] [place] [address] Other specified abnormal findings of [...] 2:00 PM EST Office Visit Urogynecology - [address] [phone] Sarah Carballo MD 580 [facility] 205 [place] [address] 02/13/2025 11:00 AM EDT Office Visit Adult Medicine [facility] [address] [place], [place] [phone] Clary Greenwood MD [address] [place], [place] 02/20/2025 9:30 AM EDT Office Visit [facility] Cardiology - [place] 1699 [facility] 404 [place] [phone] Frida Londono NP 19 [facility] 45 [place] [address] documented as of this encounter Procedures Procedure [...] LAB CHEMISTRY METHOD 10/24/2024 11:06 AM EST [facility] Potassium 4.5 3.5 - 5.5 mmol/L LAB CHEMISTRY METHOD 10/24/2024 11:06 AM EST [facility] Chloride 110 96 - 110 mmol/L LAB CHEMISTRY METHOD 10/24/2024 11:06 AM EST [facility] CO2 24 21 - 32 mmol/L LAB CHEMISTRY METHOD 10/24/2024 11:06 AM EST [facility] Anion Gap 6 3 - 11 LAB CHEMISTRY METHOD 10/24/2024 11:06 AM [facility] Glucose 103(H) 70 - 100 mg/dL LAB CHEMISTRY METHOD 10/24/2024 11:06 AM [facility] BUN 24 5 - 25 mg/dL LAB CHEMISTRY METHOD 10/24/2024 11:06 AM [facility] Creatinine 0.73 0.50 - 1.10 mg/dL LAB CHEMISTRY METHOD 10/24/2024 11:06 AM [facility] eGFR 90 >=60 mL/min/1. 73m2 LAB CHEMISTRY METHOD 10/24/2024 11:06 AM [facility] Comment:Calculation based on the??Chronic Kidney Disease Epidemiology Collaboration (CKD-EPI) equation refit??without adjustment for race. BUN/Creatinine Ratio 32.9 LAB CHEMISTRY METHOD 10/24/2024 11:06 AM [facility] Calcium 8.7 8.5 - 10.5 mg/dL LAB CHEMISTRY METHOD 10/24/2024 11:06 AM [facility] AST (SGOT) 18 10 - 42 unit/L LAB CHEMISTRY METHOD 10/24/2024 11:06 AM [facility] ALT (SGPT) 36 10 - 60 unit/L LAB CHEMISTRY METHOD 10/24/2024 11:06 AM [facility] Alkaline Phosphatase 83 42 - 121 unit/L LAB CHEMISTRY METHOD 10/24/2024 11:06 AM [facility] Total Protein 5.6(L) 6.0 - 8.0 g/dL LAB CHEMISTRY METHOD 10/24/2024 11:06 AM [facility] Albumin 3.3 3.2 - 5.0 g/dL LAB CHEMISTRY METHOD 10/24/2024 11:06 AM [facility] Total Bilirubin 0.3 0.0 - 1.4 mg/dL LAB CHEMISTRY METHOD 10/24/2024 11:06 AM [facility] Blood Venous blood specimen / Unknown Venipuncture / Unknown 10/24/2024 5:26 AM EST 10/24/2024 9:59 AM EST us Jose Francisco Morley MD LAB BLOOD ORDERABLES Final Resu lt [facility] [address] [place] [address], [place] [phone] * (ABNORMAL) Complete blood count (10/24/2024 5:26 AM EST) WBC 6.1 4.8 - 10.8 K/mcL LAB HEMETOLOGY METHOD 10/24/2024 11:00 AM [facility] RBC 3.70(L) 3.80 - 4.80 M/mcL LAB HEMETOLOGY METHOD 10/24/2024 11:00 AM [facility] Hemoglobin 11.4(L) 11.5 - 16.0 g/dL LAB HEMETOLOGY METHOD 10/24/2024 11:00 AM [facility] Hematocrit 35.5 35.0 - 47.0 % LAB HEMETOLOGY METHOD 10/24/2024 11:00 AM [facility] MCV 96.5 79.0 - 98.0 FL LAB HEMETOLOGY METHOD 10/24/2024 11:00 AM [facility] MCH 31.0 27.0 - 32.0 pcg LAB HEMETOLOGY METHOD 10/24/2024 11:00 AM [facility] MCHC 32.1 32.0 - 37.0 g/dL LAB HEMETOLOGY METHOD 10/24/2024 11:00 AM [facility] RDW 13.9 11.0 - 15.0 % LAB HEMETOLOGY METHOD 10/24/2024 11:00 AM [facility] Platelets 216 130 - 400 K/mcL LAB HEMETOLOGY METHOD 10/24/2024 11:00 AM EST [facility] MPV 10.1 7.0 - 11.0 FL LAB HEMETOLOGY METHOD 10/24/2024 11:00 AM EST [facility] NRBC 0.0 <1.0 % LAB HEMETOLOGY METHOD 10/24/2024 11:00 AM EST [facility] NRBC Absolute 0.00 <0.10 K/mcL LAB HEMETOLOGY METHOD 10/24/2024 11:00 AM EST [facility] Blood Venous blood specimen / Unknown Venipuncture / Unknown 10/24/2024 5:26 AM EST 10/24/2024 9:59 AM EST us Jose Francisco Morley MD LAB BLOOD ORDERABLES Final Resu lt [facility] [address] [place] [address], documented in this encounter Visit Diagnoses Diagnosis Other specified abnormal findings of blood chemistry Hyperlipidemia, unspecified Cerebral infarction, unspecified (CMS/HCC) Essential (primary) hypertension Unspecified essential hypertension documented in this encounter Care Teams Compliance Consultant Relationship Specialty Start Date End Date Clary Greenwood MD [address] [place] [address] PCP - General 11/30/1992 documented as of this encounter
--- OUTSIDE RECORDS SUMMARY | 2025-01-15 10:23 | XMS_ITS | Encounter Summary ---
Author Organization [facility] Address [address] [place] [address] Care Team Providers Care Underwriter Name Role Phone Clary Greenwood MD Primary Care Provider [phone] Encounter Details Date Type Department Care Team (Late Contact Info) Description 10/22/2024 Lab Requisition [facility] - Main Lab [address] [facility] [place] [address] Jose Francisco Morley MD [address] [place] [phone] Essential (primary) hypertension Social History Tobacco Use [...] 2:00 PM EST Office Visit Urogynecology [address] [phone] Sarah Carballo MD 580 [facility] 205 [place] [address] 02/13/2025 11:00 AM EDT Office Visit Adult Medicine [address] [place] [address] Clary Greenwood MD [address] [place], [place] 02/20/2025 9:30 AM EDT Office Visit [facility] Cardiology - [place] 1699 [facility] 404 [place] [phone] Frida Londono NP 19 [facility] 45 [place] [address] documented as of this encounter Procedures Procedure Name Priority Date/Time Associated Diagnosis Comments COMPLETE BLOOD COUNT Routine 10/22/2024 6:28 AM EST Essential (primary) hypertension COMPREHENSIVE METABOLIC PANEL Routine 10/22/2024 6:28 AM EST Essential (primary) hypertension documented in this encounter Results * (ABNORMAL) Comprehensive metabolic panel (10/22/2024 6:28 AM EST) Sodium 140 133 - 145 mmol/L LAB CHEMISTRY METHOD 10/22/2024 8:[address] [facility] Potassium 4.4 3.5 - 5.5 mmol/L LAB CHEMISTRY METHOD 10/22/2024 8:[address] [facility] Chloride 108 96 - 110 mmol/L LAB CHEMISTRY METHOD 10/22/2024 8:[address] [facility] CO2 26 21 - 32 mmol/L LAB CHEMISTRY METHOD 10/22/2024 8:[address] [facility] Anion Gap 6 3 - 11 LAB CHEMISTRY METHOD 10/22/2024 8:[address] [facility] Glucose 111(H) 70 - 100 mg/dL LAB CHEMISTRY METHOD 10/22/2024 8:[address] [facility] BUN 20 5 - 25 mg/dL LAB CHEMISTRY METHOD 10/22/2024 8:[address] [facility] Creatinine 0.80 0.50 - 1.10 mg/dL LAB CHEMISTRY METHOD 10/22/2024 8:[address] [facility] eGFR 80 >=60 mL/min/1. 73m2 LAB CHEMISTRY METHOD 10/22/2024 8:[address] [facility] Comment:Calculation based on the??Chronic Kidney Disease Epidemiology Collaboration (CKD-EPI) equation refit??without adjustment for race. BUN/Creatinine Ratio 25.0 LAB CHEMISTRY METHOD 10/22/2024 8:[address] [facility] Calcium 9.1 8.5 - 10.5 mg/dL LAB CHEMISTRY METHOD 10/22/2024 8:[address] [facility] AST (SGOT) 34 10 - 42 unit/L LAB CHEMISTRY METHOD 10/22/2024 8:[address] [facility] ALT (SGPT) 50 10 - 60 unit/L LAB CHEMISTRY METHOD 10/22/2024 8:[address] [facility] Alkaline Phosphatase 86 42 - 121 unit/L LAB CHEMISTRY METHOD 10/22/2024 8:[address] [facility] Total Protein 6.8 6.0 - 8.0 g/dL LAB CHEMISTRY METHOD 10/22/2024 8:[address] [facility] Albumin 3.9 3.2 - 5.0 g/dL LAB CHEMISTRY METHOD 10/22/2024 8:[address] [facility] Total Bilirubin 0.5 0.0 - 1.4 mg/dL LAB CHEMISTRY METHOD 10/22/2024 8:[address] [facility] Blood Venous blood specimen / Unknown Venipuncture / Unknown 10/22/2024 6:28 AM EST 10/22/2024 7:28 AM EST us Jose Francisco Morley MD LAB BLOOD ORDERABLES Final Resu lt [facility] [address] [place] [address], * Complete blood count (10/22/2024 6:28 AM EST) [facility] WBC 6.7 4.8 - 10.8 K/mcL LAB HEMETOLOGY METHOD 10/22/2024 7:[address] [facility] RBC 4.20 3.80 - 4.80 M/mcL LAB HEMETOLOGY METHOD 10/22/2024 7:52 AM EST [facility] Hemoglobin 13.2 11.5 - 16.0 g/dL LAB HEMETOLOGY METHOD 10/22/2024 7:[address] [facility] Hematocrit 40.0 35.0 - 47.0 % LAB HEMETOLOGY METHOD 10/22/2024 7:[address] [facility] MCV 94.6 79.0 - 98.0 FL LAB HEMETOLOGY METHOD 10/22/2024 7:[address] [facility] MCH 31.2 27.0 - 32.0 pcg LAB HEMETOLOGY METHOD 10/22/2024 7:[address] [facility] MCHC 33.0 32.0 - 37.0 g/dL LAB HEMETOLOGY METHOD 10/22/2024 7:[address] [facility] RDW 13.6 11.0 - 15.0 % LAB HEMETOLOGY METHOD 10/22/2024 7:[address] [facility] Platelets 237 130 - 400 K/mcL LAB HEMETOLOGY METHOD 10/22/2024 7:[address] [facility] MPV 9.6 7.0 - 11.0 FL LAB HEMETOLOGY METHOD 10/22/2024 7:[address] [facility] NRBC 0.0 <1.0 % LAB HEMETOLOGY METHOD 10/22/2024 7:[address] [facility] NRBC Absolute 0.00 <0.10 K/mcL LAB HEMETOLOGY METHOD 10/22/2024 7:52 AM EST [facility] Blood Venous blood specimen / Unknown Venipuncture / Unknown 10/22/2024 6:28 AM EST 10/22/2024 7:28 AM EST us Jose Francisco Morley MD LAB BLOOD ORDERABLES Final Resu lt [facility] [address] [place] [address], documented in this encounter Visit Diagnoses Diagnosis Essential (primary) hypertension Unspecified essential hypertension documented in this encounter Care Teams Underwriter Relationship Specialty Start Date End Date Clary Greenwood MD [address] [place] [address] PCP - General 11/30/1992 documented as of this encounter
--- OUTSIDE RECORDS SUMMARY | 2025-01-15 10:23 | XMS_ITS | Encounter Summary ---
Author Organization [facility] Address [address] [place] [address] Care Team Providers Care Cattle Killer Name Role Phone Clary Greenwood MD Primary Care Provider [phone] Encounter Details Date Type Department Care Team (Late Contact Info) Description 10/22/2024 Lab Requisition [facility] - Main Lab [address] [facility] [place] [address] Jose Francisco Morley MD [address] [place] [phone] Essential (primary) hypertension Social History Tobacco Use [...] 01/24/2025 2:00 PM EST Office Visit Urogynecology [address] [phone] Sarah Carballo MD 580 [facility] 205 [place] [address] 02/13/2025 11:00 AM EDT Office Visit Adult Medicine [address] [place] [address] Clary Greenwood MD [address] [place], [place] 02/20/2025 9:30 AM EDT Office Visit [facility] - [place] 1699 [facility] 404 [place] [phone] Frida Londono NP 19 [facility] 45 [place] [address] documented as of this encounter Procedures Procedure Name Priority Date/Time Associated Diagnosis Comments COMPLETE BLOOD COUNT Routine 10/23/2024 5:28 AM EST Essential (primary) hypertension COMPREHENSIVE METABOLIC PANEL Routine 10/23/2024 5:20 AM EST Essential (primary) hypertension documented in this encounter Results * (ABNORMAL) Complete blood count (10/23/2024 5:28 AM EST) WBC 6.0 4.8 - 10.8 K/mcL LAB HEMETOLOGY METHOD 10/23/2024 8:45 AM [facility] RBC 3.70(L) 3.80 - 4.80 M/mcL LAB HEMETOLOGY METHOD 10/23/2024 8:45 AM [facility] Hemoglobin 11.7 11.5 - 16.0 g/dL LAB HEMETOLOGY METHOD 10/23/2024 8:45 AM [facility] Hematocrit 35.5 35.0 - 47.0 % LAB HEMETOLOGY METHOD 10/23/2024 8:45 AM [facility] MCV 95.4 79.0 - 98.0 FL LAB HEMETOLOGY METHOD 10/23/2024 8:45 AM [facility] MCH 31.5 27.0 - 32.0 pcg LAB HEMETOLOGY METHOD 10/23/2024 8:45 AM EST [facility] MCHC 33.0 32.0 - 37.0 g/dL LAB HEMETOLOGY METHOD 10/23/2024 8:45 AM EST [facility] RDW 13.8 11.0 - 15.0 % LAB HEMETOLOGY METHOD 10/23/2024 8:45 AM [facility] Platelets 208 130 - 400 K/mcL LAB HEMETOLOGY METHOD 10/23/2024 8:45 AM EST [facility] MPV 9.8 7.0 - 11.0 FL LAB HEMETOLOGY METHOD 10/23/2024 8:45 AM [facility] NRBC 0.0 <1.0 % LAB HEMETOLOGY METHOD 10/23/2024 8:45 AM [facility] NRBC Absolute 0.00 <0.10 K/mcL LAB HEMETOLOGY METHOD 10/23/2024 8:45 AM [facility] Blood Venous blood specimen / Unknown Venipuncture / Unknown 10/23/2024 5:28 AM EST 10/23/2024 8:20 AM EST us Jose Francisco Morley MD LAB BLOOD ORDERABLES Final Resu lt [facility] [address] [place] [address], * (ABNORMAL) Comprehensive metabolic panel (10/23/2024 5:20 AM EST) Sodium 142 133 - 145 mmol/L LAB CHEMISTRY METHOD 10/23/2024 9:15 AM EST [facility] Potassium 4.7 3.5 - 5.5 mmol/L LAB CHEMISTRY METHOD 10/23/2024 9:15 AM [facility] Chloride 111(H) 96 - 110 mmol/L LAB CHEMISTRY METHOD 10/23/2024 9:15 AM [facility] CO2 26 21 - 32 mmol/L LAB CHEMISTRY METHOD 10/23/2024 9:15 AM [facility] Anion Gap 5 3 - 11 LAB CHEMISTRY METHOD 10/23/2024 9:15 AM [facility] Glucose 111(H) 70 - 100 mg/dL LAB CHEMISTRY METHOD 10/23/2024 9:15 AM [facility] BUN 28(H) 5 - 25 mg/dL LAB CHEMISTRY METHOD 10/23/2024 9:15 AM [facility] Creatinine 0.88 0.50 - 1.10 mg/dL LAB CHEMISTRY METHOD 10/23/2024 9:15 AM [facility] eGFR 72 >=60 mL/min/1. 73m2 LAB CHEMISTRY METHOD 10/23/2024 9:15 AM [facility] Comment:Calculation based on the??Chronic Kidney Disease Epidemiology Collaboration (CKD-EPI) equation refit??without adjustment for race. BUN/Creatinine Ratio 31.8 LAB CHEMISTRY METHOD 10/23/2024 9:15 AM [facility] Calcium 8.5 8.5 - 10.5 mg/dL LAB CHEMISTRY METHOD 10/23/2024 9:15 AM [facility] AST (SGOT) 22 10 - 42 unit/L LAB CHEMISTRY METHOD 10/23/2024 9:15 AM [facility] ALT (SGPT) 42 10 - 60 unit/L LAB CHEMISTRY METHOD 10/23/2024 9:15 AM [facility] Alkaline Phosphatase 78 42 - 121 unit/L LAB CHEMISTRY METHOD 10/23/2024 9:15 AM [facility] Total Protein 5.9(L) 6.0 - 8.0 g/dL LAB CHEMISTRY METHOD 10/23/2024 9:15 AM [facility] Albumin 3.5 3.2 - 5.0 g/dL LAB CHEMISTRY METHOD 10/23/2024 9:15 AM EST [facility] Total Bilirubin 0.4 0.0 - 1.4 mg/dL LAB CHEMISTRY METHOD 10/23/2024 9:15 AM EST [facility] Blood Venous blood specimen / Unknown Venipuncture / Unknown 10/23/2024 5:20 AM EST 10/23/2024 8:23 AM EST us Jose Francisco Morley MD LAB BLOOD ORDERABLES Final Resu lt [facility] [address] [place] [address], documented in this encounter Visit Diagnoses Diagnosis Essential (primary) hypertension Unspecified essential hypertension documented in this encounter Care Teams Cattle Killer Relationship Specialty Start Date End Date Clary Greenwood MD [address] [place] [address] PCP - General 11/30/1992 documented as of this encounter
--- OUTSIDE RECORDS SUMMARY | 2025-01-15 10:23 | XMS_ITS | Encounter Summary ---
Author Organization [facility] Address [address] [place] [address] Care Team Providers Care Final Installer Inspector Name Role Phone Clary Greenwood MD Primary Care Provider [phone] Reason for Visit * Reason Onset Date Comments faxed order 12/01/2024 Teressa zuluaga Nurse order #[id number] Encounter Details Date Type Department Care Team (Late Contact Info) Description 12/01/2024 Telephone Adult Medicine [address] [phone] Verona Olsen [place] faxed order (Teressa Haas Nurse order #[id number]) Social History Tobacco Use Types Packs/Day Years [...] Received orders from Teressa Haas Nurse order #[id number]. Please sign and fax to [phone] documented in this encounter Plan of Treatment Upcoming Encounters Date Type Department Care Team (Late Contact Info) Description 01/24/2025 2:00 PM EST Office Visit Urogynecology - [place] [address] [place], [place] [phone] Sarah Carballo MD 580 [facility] 205 [place] [address] 02/13/2025 11:00 AM EDT Office Visit Adult Medicine [place] - [place] [address] [place], [place] [phone] Clary Greenwood MD [address] [place], [place] 02/20/2025 9:30 AM EDT Office Visit [facility] Cardiology - [place] 1699 [facility] 404 [place] [phone] Frida Londono, ACID FILLER 19 [facility] 45 [place] [address] documented as of this encounter Visit Diagnoses Not on filedocumented in this encounter Care Teams Final Installer Inspector Relationship Specialty Start Date End Date Clary Greenwood MD [address] [place] [address] PCP - General 11/30/1992 documented as of this encounter
--- OUTSIDE RECORDS SUMMARY | 2025-01-15 10:23 | XMS_ITS | Clinical Summary ---
Author Organization [facility] Address 175 [place] [address] Phone Care Team Providers Care Portable Track Crew Chief Name Role Phone Clary Greenwood MD Primary Care Provider [phone] Allergies Active Allergy Reactions Criticality Noted Date [...] Description 12/21/2024 4:00 PM EST Office Visit [place] - [place] [address] [phone] Keshav Araujo MD Pure hypercholesterolemia (Primary Dx); Primary hypertension; Bilateral leg edema 12/13/[address] [phone] Clary Greenwood MD Data Manager Feedback ([facility]) 12/01/[address] [phone] Verona Olsen [place] faxed order ([facility] Nurse order #[id number]) 11/27/[address] [phone] Clary Greenwood MD Referral 11/07/2024 1:00 PM EST Office Visit [address] [phone] Clary Greenwood MD Cerebrovascular accident (CVA) due to thrombosis of right posterior cerebral artery (CMS/HCC) (Primary Dx); Essential hypertension, benign; Prediabetes 11/06/[address] [phone] Clary Greenwood MD [facility] 11/01/[address] [phone] Clary Greenwood MD vna 10/31/[address] [phone] Clary Greenwood [facility] 10/29/2024 Lab Requisition [facility] - Main Lab 299 [facility] [place] [phone] Jose Francisco Morley MD Cerebral infarction, unspecified (CMS/HCC); Essential (primary) hypertension 10/25/[address] [facility] [address] [place] [phone] Jose Francisco Morley MD Cerebral infarction, unspecified ([facility]); Essential (primary) hypertension 10/24/[address] [facility] [address] [place] [phone] Jose Francisco Morley MD Other specified abnormal findings of blood chemistry; Hyperlipidemia, unspecified; Cerebral infarction, unspecified ([facility]/HCC); Essential (primary) hypertension 10/22/[address] [facility] [address] [place] [phone] Jose Francisco Morley MD Essential (primary) hypertension 10/22/[address] [facility] [address] [place] [phone] Jose Francisco Morley MD Essential (primary) hypertension from Last 3 Months Immunizations Name Administration Dates Next Due Influenza trivalent, 0.5mL ( Fluad) 65yo and older 07/25/2024 Influenza trivalent, 0.5mL ( Fluzone High-dose) 65yo and older 08/22/2023 Influenza, Unspecified 08/24/2022,2020,09/15/2020,08/23,11/24/2018,11/26/2016,01/30/2015 ,09/15/2013,01/04/2012,12/27/2009 [employer] SARS-CoV-2 COVID-19, mRNA, LNP-S, preservative free 04/06/2022,09/26/2021 [...] 01/24/2025 2:00 PM EST Office Visit Urogynecology [address] [phone] Sarah Carballo MD 580 [facility] 205 [place] [address] 02/13/2025 11:00 AM EDT Office Visit Adult Medicine [facility] - [address] [phone] Clary Greenwood MD [address] [place], [place] 02/20/2025 9:30 AM EDT Office Visit [facility] - [place] 1699 [facility] 404 [place] [phone] Frida Londono NP 19 [facility] 45 [place] [address] Health Maintenance Due Date Last Done Comments [...] this topic Medical Devices Implanted Type Area Cassandra Consultant Device Identifier Shelf Expiration Date Model / Serial / Lot Cement Bone Surg Simplex Radiopq Stry-Howm [id number] Implanted:Qty: 1 on 01/26/2022 by Gonzalo Pope MD Left: Knee [employer] 6191-1-010 / / Cement Bone Surg Simplex Radiopq Stry-Howm [id number] Implanted:Qty: 1 on 01/26/2022 by Gonzalo Pope MD Left: Knee [employer] 6191-1-010 / / Knee Bsplt Triathlon Ti Sz 4 Stry-Howm [id number] Implanted:Qty: 1 on 01/26/2022 by Gonzalo Pope MD Left: Knee [employer] [id number] 10/27/2026 5536-B-400 / / [id number] Knee Ptla Asym Tritanium 32x10 Stry-How [id number]-[id number] 039 Implanted:Qty: 1 on 01/26/2022 by Gonzalo Pope MD Left: Knee [employer] [id number] 10/16/2026 5552-L-320 / / [id number] Knee Tib Insrt Cr-X3 [id number] Stry-Howm 8839-[id number]-[id number] 525 Implanted:Qty: 1 on 01/26/2022 by Gonzalo Pope MD Left: Knee [employer] [id number] 02/10/2025 5530-G-411 / / [id number] Knee Fem Bsplt W Pa Stry-Howm 7208-[id number] Implanted:Qty: 1 on 01/26/2022 by Gonzalo Pope MD Left: Knee [employer] [id number] 10/26/2026 5517-F-401 / / [id number] Tibial Bearing Insert Cs 10mm Stry-Howm 3546-[id number] Implanted:Qty: 1 on 06/22/2022 by Gonzalo Pope MD Right: Knee [employer] [id number] 05/05/2027 5531-G-410 -E / / [id number] Knee Bsplt Triathlon Ti Sz 4 Stry-Howm [id number] Implanted:Qty: 1 on 06/22/2022 by Gonzalo Pope MD Right: Knee [employer] [id number] 04/09/2027 5536-B-400 / / [id number] Knee Fem Bsplt W Pa Stry-Howm [id number]-[id number] Implanted:Qty: 1 on 06/22/2022 by Gonzalo Pope MD Right: Knee [employer] [id number] 03/29/2027 5517-F-402 / / [id number] Knee Ptla Asym Tritanium 32x10 Stry-Howm [id number] Implanted:Qty: 1 on 06/22/2022 by Gonzalo Pope MD Right: Knee [employer] [id number] 04/01/2027 5552-L-320 / / [id number] Procedures Procedure [...] 10/30/2024 9:48 AM [facility] RBC 3.70(L) 3.80 - 4.80 M/mcL LAB HEMETOLOGY METHOD 10/30/2024 9:48 AM [facility] Hemoglobin 11.5 11.5 - 16.0 g/dL LAB HEMETOLOGY METHOD 10/30/2024 9:48 AM [facility] Hematocrit 35.5 35.0 - 47.0 % LAB HEMETOLOGY METHOD 10/30/2024 9:48 AM [facility] MCV 96.2 79.0 - 98.0 FL LAB HEMETOLOGY METHOD 10/30/2024 9:48 AM [facility] MCH 31.2 27.0 - 32.0 pcg LAB HEMETOLOGY METHOD 10/30/2024 9:48 AM [facility] MCHC 32.4 32.0 - 37.0 g/dL LAB HEMETOLOGY METHOD 10/30/2024 9:48 AM [facility] RDW 13.5 11.0 - 15.0 % LAB HEMETOLOGY METHOD 10/30/2024 9:48 AM EST [facility] Platelets 212 130 - 400 K/mcL LAB HEMETOLOGY METHOD 10/30/2024 9:48 AM [facility] MPV 9.9 7.0 - 11.0 FL LAB HEMETOLOGY METHOD 10/30/2024 9:48 AM EST [facility] NRBC 0.0 <1.0 % LAB HEMETOLOGY METHOD 10/30/2024 9:48 AM [facility] NRBC Absolute 0.00 <0.10 K/mcL LAB HEMETOLOGY METHOD 10/30/2024 9:48 AM [facility] Blood Venous blood specimen / Unknown Venipuncture / Unknown 10/30/2024 5:24 AM EST 10/30/2024 9:33 AM EST us Jose Francisco Morley MD LAB BLOOD ORDERABLES Final Resu lt [facility] [address] [place] [address], [place] [phone] * (ABNORMAL) Comprehensive metabolic panel (10/30/2024 5:24 [...] Resu lt [facility] [address] [place] [address], * (ABNORMAL) Basic metabolic panel (10/26/2024 5:19 AM EST) Sodium 144 133 - 145 mmol/L LAB CHEMISTRY METHOD 10/26/2024 9:07 AM [facility] Potassium 5.0 3.5 - 5.5 mmol/L LAB CHEMISTRY METHOD 10/26/2024 9:07 AM [facility] Chloride 111(H) 96 - 110 mmol/L LAB CHEMISTRY METHOD 10/26/2024 9:07 AM [facility] CO2 29 21 - 32 mmol/L LAB CHEMISTRY METHOD 10/26/2024 9:07 AM [facility] Anion Gap 4 3 - 11 LAB CHEMISTRY METHOD 10/26/2024 9:07 AM [facility] Glucose 102(H) 70 - 100 mg/dL LAB CHEMISTRY METHOD 10/26/2024 9:07 AM [facility] BUN 21 5 - 25 mg/dL LAB CHEMISTRY METHOD 10/26/2024 9:07 AM [facility] Creatinine 0.84 0.50 - 1.10 mg/dL LAB CHEMISTRY METHOD 10/26/2024 9:07 AM [facility] eGFR 76 >=60 mL/min/1. 73m2 LAB CHEMISTRY METHOD 10/26/2024 9:07 AM [facility] Comment:Calculation based on the??Chronic Kidney Disease Epidemiology Collaboration (CKD-EPI) equation refit??without adjustment for race. BUN/Creatinine Ratio 25.0 LAB CHEMISTRY METHOD 10/26/2024 9:07 AM EST [facility] Calcium 9.4 8.5 - 10.5 mg/dL LAB CHEMISTRY METHOD 10/26/2024 9:07 AM EST [facility] Blood Venous blood specimen / Unknown Venipuncture / Unknown 10/26/2024 5:19 AM EST 10/26/2024 8:15 AM EST us Jose Francisco Morley MD LAB BLOOD ORDERABLES Final Resu lt [facility] ([facility]) [facility] [address] [place] [address], [place] [phone] * SCREENING MAMMOGRAPHY BI 2-VIEW BREAST INC [...] Recommendation: Routine annual screening mammography is recommended [facility] [address] [address] Procedure Note Pierce Ceballos MD - 09/23/2024 [...] Recommendation: Routine annual screening mammography is recommended [address] [id number] Clary Greenwood MD IMG XR PROCEDURES Final Result * (ABNORMAL) Lipid panel (06/06/2024) LDL/HDL Ratio 3 0 - 4 Triglycerides 83 0 - 150 mg/dL Cholesterol 197 0 - 200 mg/dL HDL 59 >=40 mg/dL LDL Cholesterol 122(A) 0 - 100 mg/dL Blood Venous blood specimen / Unknown Result [facility] Historical Provider LAB BLOOD ORDERABLES Rachel l Result * Depression Screening (06/05/2024) Pathologist [facility] Depression Screening abstracted Historical Provider HEALTH MAINTENANCE Final Result * Hemoglobin A1c (06/05/2024) Hemoglobin A1C 5.7 <=6.5 % Blood Venous blood specimen / Unknown Result [facility] Historical Provider LAB BLOOD ORDERABLES Racehl l Result * Falls Risk Assessment (11/29/2023) [facility] Falls Risk Assessment abstracted us Historical [...] (World Health Organization Fracture Risk Assessment) [facility] Department of Internal Medicine recommends using [...] (World Health Organization Fracture Risk Assessment) [facility] Department of Internal Medicine recommendsusing National [...] Recently Relevant to Health Maintenance Insurance MEDICARE [facility] Care Teams Portable Track Crew Chief Relationship Specialty Start Date End Date Clary Greenwood MD [address] [place] [address] PCP - General 11/30/1992
[2025-01-15 12:35] LABS: CDiff Gene PCR NEGATIVE (Negative)
== END 2025-01-15 09:14 | disposition home or self-care (01) ==
LOC: HO.HMGCLNP 09:13
PROVIDERS: Visit Provider Physician Assistant
DX: R19.7 Diarrhea, unspecified (principal); J06.9 Acute upper respiratory infection, unspecified
CPT/HCPCS: 87493; 99202

== ENCOUNTER 2025-04-05 08:16 | Outpatient (AMB) | payer MEDICARE, BC, SELFPAY ==
--- NOTE | 2025-04-05 08:16 | AM.OFFWIN_ITS ---
Intake Vital Signs 04/05/25 08:18 Height 5 ft 3 in Weight 192 lb BMI 34.0 BP 122/80 Blood Pressure Location Rt brachial Position Sitting Pulse 46 L Pulse Source Pulse Oximeter Pulse Oximetry (%) 99 Oxygen Delivery Method Room Air Intake Visit Reasons: EP-lt elbow pain Intake Note: Patient here for left elbow pain that has been present for about 1 month. she states she did have a stroke so she hasnt really been moving it. Patient Tobacco Use Status: Never used Tobacco Allergies hydrochlorothiazide Allergy (Mild, Verified 04/05/25 08:19) Unknown hydrocodone Allergy (Mild, Verified 04/05/25 08:19) Unknown sulfacetamide [From Sulfacet-R] Allergy (Mild, Verified 04/05/25 08:19) Unknown sulfur [From Sulfacet-R] Allergy (Mild, Verified 04/05/25 08:19) Unknown Do you need a note to return to daycare/school/sports/work: No HPI HPI Comments History of Present Illness Details History of Present Illness - The patient is a 70-year-old female pr esenting with elbow pain, worsening over the last few weeks. . - She describes pain localized to the me dial part of the right elbow, which is exacerbated by bending and decreases with keeping the arm extended. - Increased use of the right arm due to various activities has led to worsening of the pain. - The patient denies any known elbow-spe cific arthritis, although there is a significant history of osteoarthritis, evidenced by bilateral total knee replacements. - She is taking Tylenol regularly for ge neralized pain relief but notes no specific benefit for the elbow pain. - There is a history of stroke six month s ago resulting in arm weakness. - No recent trauma or systemic symptoms are noted. Physical Exam General: Cooperative, healthy appearing, comfortable, no acute distress and well developed Orientation: Patient oriented x3 Limitations: Weakness in the left arm due to a previous stroke Head: Normal to inspection Ears: Hearing grossly normal bilaterally Nose: Normal External nose present Face and sinus: Normal facial exam Eyes: Appearance normal, both eyes and all related structures Neck: Normal visual inspection and Yes full ROM Respiratory: Normal respiratory effort and able to speak in complete sentences. Clear to auscultation bilaterally Cardiovascular: Regular rate and rhythm. Normal S1 and S2 Skin: No rashes or lesions noted, except for a heat rash on the breasts Neuro: Patient oriented x3 Extremities: left elbow full ROM with pain upon extension after full flexion. no edema. no ecchymosis, warmth or skin changes. TTP medial epicondyle area. PFSH Social History Patient Tobacco Use Status: Never used Tobacco Review of Systems Const All systems reviewed & are unremarkable except as noted in HPI and below Physical Exam Vital Signs: Last Vital Signs Pulse 46 L 04/05/25 08:18 BP 122/80 04/05/25 08:18 Pulse Ox 99 04/05/25 08:18 Oxygen Delivery Method Room Air 04/05/25 08:18 BMI result Body Mass Index 34.0 Assessment & Plan Assessment & Plan (1) Left elbow pain: Code(s): M25.522 - Pain in left elbow Plan: Likely medial epicondylitis. The patient will switch from Tylenol to naproxen 500 mg twice daily for the management of inflammation due to medial epicondylitis. The anti-inflammatory benefits of naproxen were discussed, along with risks such as gastrointestinal issues and impacts on the kidneys, specifically focusing on its short-term use. Use ATC x 4 days then transition to as needed only. An X-ray of the left elbow will be performed to exclude acute changes. Conservative measures, including resting and applying ice, were advised to manage inflammation and pain. The patient is encouraged to reduce activities that aggravate the elbow pain, sling is not necessary at this time. Follow-up will be necessary to assess symptom management and review X-ray results to potentially adjust the treatment plan accordingly. If no improvment over coming weeks, she should follow up with her PCP. Patient was informed and verbally consented to the use of an ambient scribe for clinic note documentation during this visit. Orders: Orders XR elbow LT min 3V Today M25.522 - Pain in left elbow Medications: New naproxen 500 mg PO Q12H PRN 20 tabs 0RF pain Coding Level of Care Code New Pt Level 4 (80266) Diagnoses Left elbow pain M25.522
[2025-04-05 08:18] VITALS: BP 122/80; PULSE 46; O2SAT 99; BMI 34.0
--- OUTSIDE RECORDS SUMMARY | 2025-04-05 08:24 | XMS_ITS | Encounter Summary ---
Author Organization [facility] Address [address] [place] [address] Care Team Providers Care Sports Management Professor Name Role Phone Clary Greenwood MD Primary Care Provider [phone] Encounter Details Date Type Department Care Team (Late Contact Info) Description 10/29/2024 Lab Requisition [facility] - Main Lab [address] [facility] [place] [address] Jose Francisco Morley MD [address] [place] [address] Cerebral infarction, unspecified (CMS/HCC V24, CMS/HCC V28); Essential (primary) hypertension Social History Tobacco Use [...] Department Care Team (Late Contact Info) Description 05/16/2025 11:00 AM EDT Appointment [facility] [address] [place] [id number] Reji Ramos MD [address] [facility] [address] [place] [address] 07/30/2025 8:30 AM EDT Office Visit Adult Medicine [facility] [address] [place] [address] Clary Greenwood MD [address] [place] [address] 08/22/2025 1:00 PM EDT Office Visit [facility] [place] [address] [facility] [place] [address] [place] [address] Keshav Araujo MD [address] [facility] [address] [place] [address] documented as of this encounter Procedures Procedure [...] mmol/L LAB CHEMISTRY METHOD 10/30/2024 10:15 AM [facility] Potassium 4.9 3.5 - 5.5 mmol/L LAB CHEMISTRY METHOD 10/30/2024 10:15 AM [facility] Chloride 109 96 - 110 mmol/L LAB CHEMISTRY METHOD 10/30/2024 10:15 AM [facility] CO2 28 21 - 32 mmol/L LAB CHEMISTRY METHOD 10/30/2024 10:15 AM [facility] Anion Gap 5 3 - 11 LAB CHEMISTRY METHOD 10/30/2024 10:15 AM [facility] Glucose 107(H) 70 - 100 mg/dL LAB CHEMISTRY METHOD 10/30/2024 10:15 AM [facility] BUN 17 5 - 25 mg/dL LAB CHEMISTRY METHOD 10/30/2024 10:15 AM [facility] Creatinine 0.66 0.50 - 1.10 mg/dL LAB CHEMISTRY METHOD 10/30/2024 10:15 AM [facility] eGFR 96 >=60 mL/min/1. 73m2 LAB CHEMISTRY METHOD 10/30/2024 10:15 AM [facility] Comment:Calculation based on the??Chronic Kidney Disease Epidemiology Collaboration (CKD-EPI) equation refit??without adjustment for race. BUN/Creatinine Ratio 25.8 LAB CHEMISTRY METHOD 10/30/2024 10:15 AM [facility] Calcium 9.0 8.5 - 10.5 mg/dL LAB CHEMISTRY METHOD 10/30/2024 10:15 AM [facility] AST (SGOT) 12 10 - 42 unit/L LAB CHEMISTRY METHOD 10/30/2024 10:15 AM [facility] ALT (SGPT) 24 10 - 60 unit/L LAB CHEMISTRY METHOD 10/30/2024 10:15 AM [facility] Alkaline Phosphatase 90 42 - 121 unit/L LAB CHEMISTRY METHOD 10/30/2024 10:15 AM [facility] Total Protein 5.8(L) 6.0 - 8.0 g/dL LAB CHEMISTRY METHOD 10/30/2024 10:15 AM [facility] Albumin 3.3 3.2 - 5.0 g/dL LAB CHEMISTRY METHOD 10/30/2024 10:15 AM [facility] Total Bilirubin 0.4 0.0 - 1.4 mg/dL LAB CHEMISTRY METHOD 10/30/2024 10:15 AM [facility] Blood Venous blood specimen / Unknown Venipuncture / Unknown 10/30/2024 5:24 AM EST 10/30/2024 9:25 AM EST Jose Francisco Morley MD LAB BLOOD ORDERABLES Final Resu lt [facility] [address] [place] [address], * (ABNORMAL) Complete blood count (10/30/2024 5:24 AM EST) WBC 5.9 4.8 - 10.8 K/mcL LAB HEMETOLOGY METHOD 10/30/2024 9:48 AM EST [facility] RBC 3.70(L) 3.80 - 4.80 M/mcL LAB HEMETOLOGY METHOD 10/30/2024 9:48 AM [facility] Hemoglobin 11.5 11.5 - 16.0 g/dL LAB HEMETOLOGY METHOD 10/30/2024 9:48 AM [facility] Hematocrit 35.5 35.0 - 47.0 % LAB HEMETOLOGY METHOD 10/30/2024 9:48 AM EST [facility] MCV 96.2 79.0 - 98.0 FL LAB HEMETOLOGY METHOD 10/30/2024 9:48 AM [facility] MCH 31.2 27.0 - 32.0 pcg LAB HEMETOLOGY METHOD 10/30/2024 9:48 AM [facility] MCHC 32.4 32.0 - 37.0 g/dL LAB HEMETOLOGY METHOD 10/30/2024 9:48 AM EST [facility] RDW 13.5 11.0 - 15.0 % LAB HEMETOLOGY METHOD 10/30/2024 9:48 AM [facility] Platelets 212 130 - 400 K/mcL LAB HEMETOLOGY METHOD 10/30/2024 9:48 AM [facility] MPV 9.9 7.0 - 11.0 FL LAB HEMETOLOGY METHOD 10/30/2024 9:48 AM [facility] NRBC 0.0 <1.0 % LAB HEMETOLOGY METHOD 10/30/2024 9:48 AM EST [facility] NRBC Absolute 0.00 <0.10 K/mcL LAB HEMETOLOGY METHOD 10/30/2024 9:48 AM EST [facility] Blood Venous blood specimen / Unknown Venipuncture / Unknown 10/30/2024 5:24 AM EST 10/30/2024 9:33 AM EST us Jose Francisco Morley MD LAB BLOOD ORDERABLES Final Resu lt [facility] ([facility] [address] [place] [address], documented in this encounter Visit Diagnoses Diagnosis Cerebral infarction, unspecified (CMS/HCC V24, CMS/HCC V28) Essential (primary) hypertension Unspecified essential hypertension documented in this encounter Care Teams Sports Management Professor Relationship Specialty Start Date End Date Clary Greenwood MD [address] [place] [address] PCP - General 11/30/1992 documented as of this encounter
--- OUTSIDE RECORDS SUMMARY | 2025-04-05 08:24 | XMS_ITS | Clinical Summary ---
Author Organization [facility] Address [address] [place] [address] Phone Care Team Providers Care Aeronautics Teacher Name Role Phone Clary Greenwood MD Primary Care Provider [phone] Allergies Active Allergy Reactions Criticality Noted Date [...] each nostril 2 (two) times a day. 10/31/20 21 Active multivitamin (MULTIPLE VITAMINS ORAL) Take 1 tablet by mouth daily. Active vitamin B complex (VITAMINS B COMPLEX ORAL) Take by mouth. Active acetaminophen (TYLENOL) 500 mg tablet Sig - Route: Take 1,000 mg by mouth every 6 hours as needed. - Oral Class: Historic Active turmeric root extract 500 mg capsule Take by mouth. Active fexofenadine (EBONI) 180 mg tablet Take 1 tablet (180 mg total) by mouth 1 (one) time each day. 06/19/20 24 Active spironolactone (ALDACTONE) 25 mg tablet TAKE 1 TABLET BY MOUTH AT BEDTIME. 08/26/20 24 Active aspirin 81 mg EC tablet Take 1 tablet (81 mg total) by mouth 1 (one) time each day. Active atorvastatin (LIPITOR) 80 mg tablet Take 1 tablet (80 mg total) by mouth at bedtime. 90 tablet 1 11/07/20 24 Active losartan (COZAAR) 100 mg tablet Take 1 tablet (100 mg total) by mouth 1 (one) time each day. 90 tablet 1 11/07/20 24 Active amLODIPine (NORVASC) 10 mg tablet Take 1 tablet (10 mg total) by mouth at bedtime. 90 tablet 1 02/07/20 25 Active ezetimibe (ZETIA) 10 mg tabletIndicatio ns:Mixed hyperlipidemia, Cerebrovascular accident (CVA), unspecified mechanism (CMS/HCC V24, CMS/HCC V28) Take 1 tablet (10 mg total) by mouth 1 (one) time each day. 90 each 3 02/21/20 25 026 Active furosemide (LASIX) 20 mg tablet TAKE 1 TABLET BY MOUTH EVERY DAY 90 tablet 1 04/03/20 25 Active furosemide (LASIX) 40 mg tablet Take 1 tablet (40 mg total) by mouth 1 (one) time each day. Take 1 tablet by mouth daily. 04/13/20 16 025 Discontinued furosemide (LASIX) 20 mg tablet Take 1 tablet (20 mg total) by mouth 1 (one) time each day. 12/31/19 25 025 Discontinued Active Problems Problem Noted Date Diagnosed Date Stroke (cerebrum) ([facility] V24, [facility] V28) Assessment & Plan (02/13/2025 11:18 AM EDT): Prediabetes 06/19/2024 Assessment & Plan (02/13/2025 11:18 AM EDT): Orders: Hemoglobin A1c; Future [place] (stress urinary incontinence, female) 2022 Overview (01/31/2024): Last Assessment & Plan: Reviewed behavioral modifications including weight loss, kegel exercises, etc. Severe obesity (BMI 35.0-35. 9 with comorbidity) ([facility] V24, [facility] V28) 12/09/2022 Osteopenia 09/10/2022 Total knee replacement status 03/02/2022 Overview (11/04/2024): 02/10 left TKR 06/12 right TKR Osteoarthritis of both knees 05/15/2020 Overview (11/04/2024): L>R Obesity (BMI 30.0-34.9) 06/07/2018 Pulmonary nodules/lesions, multiple 09/12/2014 Medial meniscus tear 04/04/2014 Hyperlipidemia 11/09/2012 Assessment & Plan (02/13/2025 11:18 AM EDT): Orders: Lipid panel with reflex to direct LDL; Future Retinal vein occlusion ([facility] V28) 01/04/2012 Overview (11/04/2024): Left, laser treatment Incontinence of feces 02/12/2010 Overview (12/09/2022): IMO update IMO update DJD (degenerative joint disease) of cervical spi ne 02/09/2008 Headache 09/13/2007 Allergic rhinitis 12/24/2006 Sciatica 10/12/2005 Venous (peripheral) insufficiency 10/12/2005 Assessment & Plan (02/13/2025 11:18 AM EDT): Essential hypertension, benign 10/12/2005 Assessment & Plan (02/13/2025 11:18 AM EDT): Orders: Basic metabolic panel; Future Encounters Date Type Department Care Team Description 02/20/2025 9:30 AM EDT Office Visit [facility] Card[facility] [address] [place] [phone] Frida Londono NP Primary hypertension (Primary Dx); Bilateral lower extremity edema; Mixed hyperlipidemia; Abnormal EKG; Cerebrovascular accident (CVA), unspecified mechanism (CMS/HCC V24, CMS/HCC V28) 02/13/2025 11:00 AM EDT Office Visit Adult Medicine [address] [phone] Clary Greenwood MD Encounter for annual wellness visit (AWV) in Medicare patient (Primary Dx); Essential hypertension, benign; Other hyperlipidemia; Cerebrovascular accident (CVA) due to thrombosis of right posterior cerebral artery (CMS/HCC V24, CMS/HCC V28); Prediabetes; Venous (peripheral) insufficiency; Screening for colon cancer 02/06/2025 Telephone Adult Medicine [address] [phone] Clary Greenwood MD Request For Order(s); Provider Call Back 02/01/2025 Billing Patient Not Present Adult Medicine [address] [phone] Clary Greenwood MD 01/29/2025 Telephone Adult Medicine [address] [phone] Giulia Hemphill RN Faxed Order (ATI PT Medicare Progress Note Order# [id number]) from Last 3 Months Immunizations Name Administration Dates Next Due Influenza trivalent, 0.5mL ( Fluad) 65yo and older 07/25/2024 Influenza trivalent, 0.5mL ( Fluzone High-dose) 65yo and older 08/22/2023 Influenza, Unspecified 08/24/2022,2020,09/15/2020,08/23,11/24/2018,11/26/2016,01/30/2015 ,09/15/2013,01/04/2012,12/27/2009 [employer] SARS-CoV-2 COVID-19, mRNA, LNP-S, preservative free 04/06/2022,09/26/2021 [...] : benign TOTAL KNEE ARTHROPLASTY 01/2022 Left COLONOSCOPY 05/13/2020 Medical History Medical History Date Comments Unspecified venous (peripheral) insufficiency Sciatica Allergic rhinitis, cause unspecified 12/24/2006 Essential hypertension, benign Hyperlipidemia 11/09/2012 DJD (degenerative joint disease) of cervical spi ne 02/09/2008 Retinal vein occlusion ([facility] V28) 01/04/2012 Left, laser treatment Incontinence of feces [...] Passive Smoke Exposure: Past Smokeless Tobacco: Never Tobacco Cessation:Counseling Given: Not Answered Alcohol Use Standard Drinks/Week Comments Yes 0 (1 standard drink = 0.6 oz pur e alcohol) Comments Unknown Sex and Gender Information Value Date Recorded Sex Assigned at Not on file Legal Sex Female 2:47 AM EST Gender Identity Not on file Sexual Orientation Not on file Obstetrics History Last Filed Vital Signs Vital Sign Reading Time Taken Comments Blood Pressure 128/72 02/20/2025 9:27 AM EDT Pulse 67 02/20/2025 9:27 AM EDT Temperature 36 ??C (96.8 ??F) 02/13/2025 10:55 AM EDT Respiratory Rate 16 02/13/2025 10:55 AM EDT Oxygen Saturation 98% 02/20/2025 9:27 AM EDT Inhaled Oxygen Concentration - - Weight 85.7 kg (189 lb) 02/20/2025 9:27 AM EDT Height 157.5 cm (5' 2 ) 02/20/2025 9:27 AM EDT Body Mass Index 34.57 02/20/2025 9:27 AM EDT Plan of Treatment Upcoming Encounters Date Type Department Care Team (Late st Contact Info) Description 05/16/2025 11:00 AM EDT Appointment [facility] Endoscopy [address] [place] [phone] Reji Ramos MD 229 [facility] [address] [place] [address] 07/30/2025 8:30 AM EDT Office Visit Adult Medicine [facility] [address] [place] [address] Clary Greenwodo MD [address] [place] [address] 08/22/2025 1:00 PM EDT [facility] [place] [address] [facility] [address] [place] [address] Keshav Araujo MD 19 [facility] [address] [place] [address] Health Maintenance Due Date Last Done Comments Social Influencers of Health Screening 10/30/2022 COVID-19 Vaccine (7 - Pfizer risk season) 2025 07/25/2024, 08/09/2023, 04/06/2022, Additional history exists Colorectal Cancer Screening: Colonoscopy 05/13/2025 05/13/2020, 03/25/2015 Depression Screening 02/13/2026 02/13/2025, 06/05/2024, 08/24/2022 Falls Risk Assessment 02/13/2026 02/13/2025 , 11/29/2023, 11/29/2023 Hypertension/CHF/CAD Annual BMP Blood Test 02/13/2026 02/13/2025, 10/30/2024, 10/26/2024, Additional history exists Medicare Annual Wellness Visit 02/13/2026 02/13/2025 Breast Cancer Screening 09/19/2026 09/19/20, 09/19/2024, 09/13/2023, Additional history exists Cholesterol Screening (Lipid Panel) 02/13/2030 02/13/2025, 06/06/2024, 06/06/2024, Additional history exists DTaP,Tdap,and Td Vaccines (5 - Td or Tdap) 08/24/2032 08/24/2022, 08/24/2022, 01/04/2012, Additional history exists Osteoporosis Screening (Bone Density Screening) 09/09/2032 09/09/2022 Hepatitis C Screening Completed 05/11/2013, 013 Pneumococcal Vaccine: 50+ Years Completed 11/28/2022, 11/04/2021, 10/28/2012, Additional history exists Zoster Vaccines Completed 11/28/2022, 02/20, 03/04/2022 RSV Immunization Adult Patients Completed 07/20/2023 Influenza Vaccine Completed 07/25/2024, , 08/24/2022, Additional [...] age to complete this topic Meningococcal B Vaccine Aged Out No l onger eligible based on patient's age to complete this topic RSV Immunization Patients Under 20 months Aged Out No longer eligible based on patient's age to complete this topic Varicella Vaccines Aged Out No longer eligible based on patient's age to complete this topic Medical Devices Implanted Type Area Report Checker Device Identifier Shelf Expiration Date Model / Serial / Lot Cement Bone Surg Simplex Radiopq [facility]-How [id number] Implanted:Qty: 1 on 01/26/2022 by Gonzalo Pope MD Left: Knee [employer] [id number] / / Cement Bone Surg Simplex Radiopq Stry-Howm [id number] Implanted:Qty: 1 on 01/26/2022 by Gonzalo Pope MD Left: Knee [employer] 6191--[id number] / / Knee Bsplt Triathlon Ti Sz 4 Stry-Howm [id number] Implanted:Qty: 1 on 01/26/2022 by Gonzalo Pope MD Left: Knee [employer] [id number] 10/27/2026 5536-B-400 / / [id number] Knee Ptla Asym Tritanium 32x10 Stry-Howm [id number] Implanted:Qty: 1 on 01/26/2022 by Gonzalo Pope MD Left: Knee [employer] [id number] 10/16/2026 5552-L-320 / / [id number] Knee Tib Insrt Cr-X3 [id number] Stry-How [id number] Implanted:Qty: 1 on 01/26/2022 by Gonzalo Pope MD Left: Knee [employer] [id number] 02/10/2025 5530-G-411 / / [id number] Knee Fem Bsplt W Pa Stry-How [id number] Implanted:Qty: 1 on 01/26/2022 by Gonzalo Pope MD Left: Knee [employer] [id number] 10/26/2026 5517-F-401 / / [id number] Tibial Bearing Insert Cs 10mm Stry-How [id number] Implanted:Qty: 1 on 06/22/2022 by Gonzalo Pope MD Right: Knee [employer] [id number] 05/05/2027 5531-G-410 -E / / [id number] Knee Bsplt Triathlon Ti Sz 4 Stry-Howm [id number] Implanted:Qty: 1 on 06/22/2022 by Gonzalo Pope MD Right: Knee [employer] [id number] 04/09/2027 5536-B-400 / / [id number] Knee Fem Bsplt W Pa Stry-Howm [id number] Implanted:Qty: 1 on 06/22/2022 by Gonzalo Pope MD Right: Knee [employer] [id number] 03/29/2027 5517-F-402 / / [id number] Knee Ptla Asym Tritanium 32x10 Stry-Howm [id number] Implanted:Qty: 1 on 06/22/2022 by Gonzalo Pope MD Right: Knee [employer] [id number] 04/01/2027 5552-L-320 / / [id number] Procedures Procedure Name Priority Date/Time Associated Diagnosis Comments BASIC METABOLIC PANEL Routine 02/13/2025 12:22 PM EDT Essential hypertension, benign LIPID PANEL WITH REFLEX TO DIRECT LDL Routine 02/13/2025 12:22 PM EDT Other hyperlipidemia HEMOGLOBIN A1C Routine 02/13/2025 12:22 PM EDT Prediabetes SCREENING MAMMOGRAPHY BI 2-VIEW BREAST INC CAD Routine 09/19/2024 8:19 AM EDT Encounter for screening mammogram for malignant neoplasm of breast DEPRESSION SCREENING Routine 06/05/2024 FALLS RISK ASSESSMENT Routine 11/29/2023 DXA BONE DENSITY STUDY 1+ SITS AXIAL SKEL Routine 09/09/2022 2:02 PM EDT Asymptomatic menopausal state HEPATITIS C SCREENING Routine 05/11/2013 from Last 3 Months or Most Recently Relevant to Health Maintenance Results * Lipid panel with reflex to direct LDL (02/13/2025 12:22 PM EDT) Cholesterol 172 0 - 200 mg/dL LAB CHEMISTRY METHOD 02/13/2025 3:50 PM EDT [facility] Triglycerides 117 0 - 150 mg/dL LAB CHEMISTRY METHOD 02/13/2025 3:50 PM EDT [facility] HDL 56 >=40 mg/dL LAB CHEMISTRY METHOD 02/13/2025 3:50 PM EDT [facility] LDL Calculated 93 0 - 100 mg/dL LAB CHEMISTRY METHOD 02/13/2025 3:50 PM EDT [facility] VLDL Cholesterol Erasmo 23.4 mg/dL LAB CHEMISTRY METHOD 02/13/2025 3:50 PM EDT [facility] Non HDL Chol. (LDL+VLDL) 116 <145 mg/dL LAB CHEMISTRY METHOD 02/13/2025 3:50 PM EDT [facility] Chol/HDL Ratio 3.1 0.0 - 4.4 LAB CHEMISTRY METHOD 02/13/2025 3:50 PM EDT [facility] Blood Venous blood specimen / Unknown Venipuncture / Unknown 02/13/2025 12:22 PM EDT 02/13/2025 12:22 PM EDT us Clary Greenwood MD LAB BLOOD ORDERABLES Final Resul t [facility] [address] [place] [address], [place] [phone] * Hemoglobin A1c (02/13/2025 12:22 PM EDT) Hemoglobin A1C 6.0 <6.5 % LAB CHEMISTRY METHOD 02/13/2025 9:12 PM EDT [facility] Mean Bld Glu Estim. 126 mg/dL LAB CHEMISTRY METHOD 02/13/2025 9:12 PM EDT [facility] Blood Venous blood specimen / Unknown Venipuncture / Unknown 02/13/2025 12:22 PM EDT 02/13/2025 12:22 PM EDT us Clary Greenwood MD LAB BLOOD ORDERABLES Final Resul t [facility] [address] [place] [address], [place] [phone] * (ABNORMAL) Basic metabolic panel (02/13/2025 12:22 PM EDT) Sodium 140 133 - 145 mmol/L LAB CHEMISTRY METHOD 02/13/2025 3:50 PM [facility] Potassium 4.3 3.5 - 5.5 mmol/L LAB CHEMISTRY METHOD 02/13/2025 3:50 PM [facility] Chloride 105 96 - 110 mmol/L LAB CHEMISTRY METHOD 02/13/2025 3:50 PM [facility] CO2 30 21 - 32 mmol/L LAB CHEMISTRY METHOD 02/13/2025 3:50 PM [facility] Anion Gap 5 3 - 11 LAB CHEMISTRY METHOD 02/13/2025 3:50 PM [facility] Glucose 100 70 - 100 mg/dL LAB CHEMISTRY METHOD 02/13/2025 3:50 PM [facility] BUN 26(H) 5 - 25 mg/dL LAB CHEMISTRY METHOD 02/13/2025 3:50 PM [facility] Creatinine 0.84 0.50 - 1.10 mg/dL LAB CHEMISTRY METHOD 02/13/2025 3:50 PM [facility] eGFR 75 >=60 mL/min/1. 73m2 LAB CHEMISTRY METHOD 02/13/2025 3:50 PM [facility] Comment:Calculation based on the??Chronic Kidney Disease Epidemiology Collaboration (CKD-EPI) equation refit??without adjustment for race. BUN/Creatinine Ratio 31.0 LAB CHEMISTRY METHOD 02/13/2025 3:50 PM EDT [facility] Calcium 9.6 8.5 - 10.5 mg/dL LAB CHEMISTRY METHOD 02/13/2025 3:50 PM EDT [facility] Blood Venous blood specimen / Unknown Venipuncture / Unknown 02/13/2025 12:22 PM EDT 02/13/2025 12:22 PM EDT us Clary Greenwood MD LAB BLOOD ORDERABLES Final Resul t [facility] [address] [place] [address], * SCREENING MAMMOGRAPHY BI 2-VIEW BREAST INC [...] Recommendation: Routine annual screening mammography is recommended [facility] [address] [id number] Procedure Note Pierce Ceballos MD - 09/23/2024 [...] Recommendation: Routine annual screening mammography is recommended [address] [address] Clary Greenwood MD IMG XR PROCEDURES Final Result * Depression Screening (06/05/2024) Depression Screening abstracted Historical Provider HEALTH MAINTENANCE Final Result * Falls Risk Assessment (11/29/2023) Falls Risk Assessment abstracted Historical Provider HEALTH MAINTENANCE Final Result [...] (World Health Organization Fracture Risk Assessment) [facility] Department of Internal Medicine recommends using [...] (World Health Organization Fracture Risk Assessment) [facility] Department of Internal Medicine recommendsusing National [...] Resu lt * Hepatitis C Screening (05/11/2013) [facility] Hepatitis C Screening abstracted Historical Provider HEALTH MAINTENANCE Final Result from Last 3 Months or Most Recently Relevant to Health Maintenance Insurance [facility] Care Teams Aeronautics Teacher Relationship Specialty Start Date End Date Clary Greenwood MD [address] [place] [id number] PCP - General 11/30/1992
--- OUTSIDE RECORDS SUMMARY | 2025-04-05 08:24 | XMS_ITS | Encounter Summary ---
Author Organization [facility] Address [address] [place] [address] Care Team Providers Care Stem Roller Or Crusher Operator Name Role Phone Clary Greenwood MD Primary Care Provider [phone] Encounter Details Date Type Department Care Team (Late Contact Info) Description 10/24/2024 Lab Requisition [facility] [address] [facility] [address] Jose Francisco Morley MD [address] [place] [address] Other specified abnormal findings of blood chemistry; Hyperlipidemia, unspecified; Cerebral infarction, unspecified (CMS/HCC V24, CMS/HCC V28); [...] Info) Description 05/16/2025 11:00 AM EDT Appointment [facility] Endoscopy [address] [place] [address] Reji Ramos MD 229 [facility] [address] [place], [place] [phone] 07/30/2025 8:30 AM EDT Office Visit Adult Medicine [facility] [address] [place] [address] Clary Greenwood MD [address] [place], [place] 08/22/2025 1:00 PM EDT [facility] Visit [facility] [place] [address] [phone] Keshav Araujo MD 19 [facility] [address] [place] [address] documented as of this encounter Procedures Procedure [...] LAB CHEMISTRY METHOD 10/24/2024 11:06 AM EST [facility] Potassium 4.5 3.5 - 5.5 mmol/L LAB CHEMISTRY METHOD 10/24/2024 11:06 AM EST [facility] Chloride 110 96 - 110 mmol/L LAB CHEMISTRY METHOD 10/24/2024 11:06 AM EST [facility] CO2 24 21 - 32 mmol/L LAB CHEMISTRY METHOD 10/24/2024 11:06 AM [facility] Anion Gap 6 3 - [...] Resu lt [facility] [address] [place] [address], [place] [phone] * (ABNORMAL) Complete blood count (10/24/2024 5:26 [...] LAB HEMETOLOGY METHOD 10/24/2024 11:00 AM EST [facility] NRBC 0.0 <1.0 % LAB HEMETOLOGY METHOD 10/24/2024 11:00 AM EST [facility] NRBC Absolute 0.00 <0.10 K/mcL LAB HEMETOLOGY METHOD 10/24/2024 11:00 AM EST [facility] Blood Venous blood specimen / Unknown Venipuncture / Unknown 10/24/2024 5:26 AM EST 10/24/2024 9:59 AM EST us Jose Francisco Morley MD LAB BLOOD ORDERABLES Final Resu lt [facility] [address] [place] [address], documented in this encounter Visit Diagnoses Diagnosis Other specified abnormal findings of blood chemistry Hyperlipidemia, unspecified Cerebral infarction, unspecified (CMS/HCC V24, CMS/HCC V28) Essential (primary) hypertension Unspecified essential hypertension documented in this encounter Care Teams Stem Roller Or Crusher Operator Relationship Specialty Start Date End Date Clary Greenwood MD [address] [place] [address] PCP - General 11/30/1992 documented as of this encounter
--- OUTSIDE RECORDS SUMMARY | 2025-04-05 08:24 | XMS_ITS | Encounter Summary ---
Author Organization [facility] Address [address] [place] [address] Care Team Providers Care Optical Scientist Name Role Phone Clary Greenwood MD Primary Care Provider Encounter Details Date Type Department Care Team (Late Contact Info) Description 10/22/2024 Lab Requisition [facility] - Main Lab [address] [facility] [place] [address] Jose Francisco Morley MD [address] [place] [address] Essential (primary) hypertension Social History Tobacco Use [...] Info) Description 05/16/2025 11:00 AM EDT Appointment [facility] Endoscopy [address] [place] [address] Reji Ramos MD 229 [facility] [address] [place], [place] [id number] 07/30/2025 8:30 AM EDT Office Visit Adult Medicine [address] [place] [address] Clary Greenwood MD [address] [place], [place] 08/22/2025 1:00 PM EDT Office Visit [facility] [place] 1699 [facility] 404 [place] [address] Keshav Araujo MD 19 [facility] 45 [place] [address] documented as of this encounter Procedures Procedure Name Priority Date/Time Associated Diagnosis Comments COMPLETE BLOOD COUNT Routine 10/23/2024 5:28 AM EST Essential (primary) hypertension COMPREHENSIVE METABOLIC PANEL Routine 10/23/2024 5:20 AM EST Essential (primary) hypertension documented in this encounter Results * (ABNORMAL) Complete blood count (10/23/2024 5:28 AM EST) [facility] WBC 6.0 4.8 - 10.8 K/mcL LAB HEMETOLOGY METHOD 10/23/2024 8:45 AM [facility] LAB RBC 3.70(L) 3.80 - 4.80 M/mcL LAB HEMETOLOGY METHOD 10/23/2024 8:45 AM [facility] LAB Hemoglobin 11.7 11.5 - 16.0 g/dL LAB HEMETOLOGY METHOD 10/23/2024 8:45 AM [facility] LAB Hematocrit 35.5 35.0 - 47.0 % LAB HEMETOLOGY METHOD 10/23/2024 8:45 AM [facility] LAB MCV 95.4 79.0 - 98.0 FL LAB HEMETOLOGY METHOD 10/23/2024 8:45 AM [facility] LAB MCH 31.5 27.0 - 32.0 pcg LAB HEMETOLOGY METHOD 10/23/2024 8:45 AM EST [facility] LAB MCHC 33.0 32.0 - 37.0 g/dL LAB HEMETOLOGY METHOD 10/23/2024 8:45 AM EST [facility] LAB RDW 13.8 11.0 - 15.0 % LAB HEMETOLOGY METHOD 10/23/2024 8:45 AM [facility] LAB Platelets 208 130 - 400 K/mcL LAB HEMETOLOGY METHOD 10/23/2024 8:45 AM [facility] LAB MPV 9.8 7.0 - 11.0 FL LAB HEMETOLOGY METHOD 10/23/2024 8:45 AM [facility] LAB NRBC 0.0 <1.0 % LAB HEMETOLOGY METHOD 10/23/2024 8:45 AM [facility] LAB NRBC Absolute 0.00 <0.10 K/mcL LAB HEMETOLOGY METHOD 10/23/2024 8:45 AM [facility] LAB Blood Venous blood specimen / Unknown Venipuncture / Unknown 10/23/2024 5:28 AM EST 10/23/2024 8:20 AM EST Jose Francisco Morley MD LAB BLOOD ORDERABLES Final Resu lt [facility] LAB [address] [place] [address], * (ABNORMAL) Comprehensive metabolic panel (10/23/2024 5:20 AM EST) Sodium 142 133 - 145 mmol/L LAB CHEMISTRY METHOD 10/23/2024 9:15 AM [facility] LAB Potassium 4.7 3.5 - 5.5 mmol/L LAB CHEMISTRY METHOD 10/23/2024 9:15 AM [facility] LAB Chloride 111(H) 96 - 110 mmol/L LAB CHEMISTRY METHOD 10/23/2024 9:15 AM EST [facility] LAB CO2 26 21 - 32 mmol/L LAB CHEMISTRY METHOD 10/23/2024 9:15 AM [facility] LAB Anion Gap 5 3 - 11 LAB CHEMISTRY METHOD 10/23/2024 9:15 AM [facility] LAB Glucose 111(H) 70 - 100 mg/dL LAB CHEMISTRY METHOD 10/23/2024 9:15 AM [facility] LAB BUN 28(H) 5 - 25 mg/dL LAB CHEMISTRY METHOD 10/23/2024 9:15 AM [facility] LAB Creatinine 0.88 0.50 - 1.10 mg/dL LAB CHEMISTRY METHOD 10/23/2024 9:15 AM [facility] LAB eGFR 72 >=60 mL/min/1. 73m2 LAB CHEMISTRY METHOD 10/23/2024 9:15 AM [facility] LAB Comment:Calculation based on the??Chronic Kidney Disease Epidemiology Collaboration (CKD-EPI) equation refit??without adjustment for race. BUN/Creatinine Ratio 31.8 LAB CHEMISTRY METHOD 10/23/2024 9:15 AM [facility] LAB Calcium 8.5 8.5 - 10.5 mg/dL LAB CHEMISTRY METHOD 10/23/2024 9:15 AM [facility] LAB AST (SGOT) 22 10 - 42 unit/L LAB CHEMISTRY METHOD 10/23/2024 9:15 AM [facility] LAB ALT (SGPT) 42 10 - 60 unit/L LAB CHEMISTRY METHOD 10/23/2024 9:15 AM [facility] LAB Alkaline Phosphatase 78 42 - 121 unit/L LAB CHEMISTRY METHOD 10/23/2024 9:15 AM [facility] LAB Total Protein 5.9(L) 6.0 - 8.0 g/dL LAB CHEMISTRY METHOD 10/23/2024 9:15 AM [facility] LAB Albumin 3.5 3.2 - 5.0 g/dL LAB CHEMISTRY METHOD 10/23/2024 9:15 AM EST [facility] LAB Total Bilirubin 0.4 0.0 - 1.4 mg/dL LAB CHEMISTRY METHOD 10/23/2024 9:15 AM EST [facility] LAB Blood Venous blood specimen / Unknown Venipuncture / Unknown 10/23/2024 5:20 AM EST 10/23/2024 8:23 AM EST us Jose Francisco Morley MD LAB BLOOD ORDERABLES Final Resu lt [facility] LAB [address] [place] [address], documented in this encounter Visit Diagnoses Diagnosis Essential (primary) hypertension Unspecified essential hypertension documented in this encounter Care Teams Optical Scientist Relationship Specialty Start Date End Date Clary Greenwood MD [address] [place] [address] PCP - General 11/30/1992 documented as of this encounter
--- OUTSIDE RECORDS SUMMARY | 2025-04-05 08:24 | XMS_ITS | Encounter Summary ---
Author Organization [facility] Address [address] [place] [address] Care Team Providers Care Reading Instructor Name Role Phone Clary Greenwood MD Primary Care Provider [phone] Encounter Details Date Type Department Care Team (Late Contact Info) Description 10/25/2024 Lab Requisition [facility] - Main Lab [address] [facility] [place] [address] Jose Francisco Morley MD [address] [place] [address] Cerebral infarction, unspecified (CMS/HCC V24, [...] Info) Description 05/16/2025 11:[address] [facility] Endoscopy [address] [place] [phone] Reji Ramos MD 229 [facility] [address] [place] [address] 07/30/2025 8:30 AM EDT Office Visit Adult Medicine [facility] [address] [place] [address] Clary Greenwood MD [address] [place] [address] 08/22/2025 1:00 PM EDT Office Visit [facility] - [place] 1699 [facility] 404 [place] [address] Keshav Araujo MD [address] [address] documented as of this encounter Procedures Procedure [...] mmol/L LAB CHEMISTRY METHOD 10/26/2024 9:07 AM [facility] LAB Potassium 5.0 3.5 - 5.5 mmol/L LAB CHEMISTRY METHOD 10/26/2024 9:07 AM [facility] LAB Chloride 111(H) 96 - 110 mmol/L LAB CHEMISTRY METHOD 10/26/2024 9:07 AM [facility] LAB CO2 29 21 - 32 mmol/L LAB CHEMISTRY METHOD 10/26/2024 9:07 AM [facility] LAB Anion Gap 4 3 - 11 LAB CHEMISTRY METHOD 10/26/2024 9:07 AM [facility] LAB Glucose 102(H) 70 - 100 mg/dL LAB CHEMISTRY METHOD 10/26/2024 9:07 AM EST [facility] LAB BUN 21 5 - 25 mg/dL LAB CHEMISTRY METHOD 10/26/2024 9:07 AM [facility] LAB Creatinine 0.84 0.50 - 1.10 mg/dL LAB CHEMISTRY METHOD 10/26/2024 9:07 AM [facility] LAB eGFR 76 >=60 mL/min/1. 73m2 LAB CHEMISTRY METHOD 10/26/2024 9:07 AM [facility] LAB Comment:Calculation based on the??Chronic Kidney Disease Epidemiology Collaboration (CKD-EPI) equation refit??without adjustment for race. BUN/Creatinine Ratio 25.0 LAB CHEMISTRY METHOD 10/26/2024 9:07 AM [facility] LAB Calcium 9.4 8.5 - 10.5 mg/dL LAB CHEMISTRY METHOD 10/26/2024 9:07 AM [facility] LAB Blood Venous blood specimen / Unknown Venipuncture / Unknown 10/26/2024 5:19 AM EST 10/26/2024 8:15 AM EST us Jose Francisco Morley MD LAB BLOOD ORDERABLES Final Resu lt [facility] LAB [address] [place] [address], [place] [phone] * (ABNORMAL) Complete blood count (10/26/2024 5:19 AM EST) WBC 6.2 4.8 - 10.8 K/mcL LAB HEMETOLOGY METHOD 10/26/2024 8:38 AM [facility] LAB RBC 3.70(L) 3.80 - 4.80 M/mcL LAB HEMETOLOGY METHOD 10/26/2024 8:38 AM [facility] LAB Hemoglobin 11.6 11.5 - 16.0 g/dL LAB HEMETOLOGY METHOD 10/26/2024 8:38 AM [facility] LAB Hematocrit 35.4 35.0 - 47.0 % LAB HEMETOLOGY METHOD 10/26/2024 8:38 AM EST [facility] LAB MCV 96.5 79.0 - 98.0 FL LAB HEMETOLOGY METHOD 10/26/2024 8:38 AM [facility] LAB MCH 31.6 27.0 - 32.0 pcg LAB HEMETOLOGY METHOD 10/26/2024 8:38 AM EST [facility] LAB MCHC 32.8 32.0 - 37.0 g/dL LAB HEMETOLOGY METHOD 10/26/2024 8:38 AM [facility] LAB RDW 13.6 11.0 - 15.0 % LAB HEMETOLOGY METHOD 10/26/2024 8:38 AM [facility] LAB Platelets 217 130 - 400 K/mcL LAB HEMETOLOGY METHOD 10/26/2024 8:38 AM EST [facility] LAB MPV 9.9 7.0 - 11.0 FL LAB HEMETOLOGY METHOD 10/26/2024 8:38 AM [facility] LAB NRBC 0.0 <1.0 % LAB HEMETOLOGY METHOD 10/26/2024 8:38 AM [facility] LAB NRBC Absolute 0.00 <0.10 K/mcL LAB HEMETOLOGY METHOD 10/26/2024 8:38 AM [facility] LAB Blood Venous blood specimen / Unknown Venipuncture / Unknown 10/26/2024 5:19 AM EST 10/26/2024 8:15 AM EST us Jose Francisco Morley MD LAB BLOOD ORDERABLES Final Resu lt [facility] LAB [address] [place] [address], [place] [phone] documented in this encounter Visit Diagnoses Diagnosis Cerebral infarction, unspecified (CMS/HCC V24, CMS/HCC V28) Essential (primary) hypertension Unspecified essential hypertension documented in this encounter Care Teams Reading Instructor Relationship Specialty Start Date End Date Clary Greenwood MD [address] [place] [address] PCP - General 11/30/1992 documented as of this encounter
--- OUTSIDE RECORDS SUMMARY | 2025-04-05 08:24 | XMS_ITS | Encounter Summary ---
Author Organization [facility] Address [address] [place] [address] Care Team Providers Care Drive Away Driver Name Role Phone Clary Greenwood MD Primary Care Provider [phone] Encounter Details Date Type Department Care Team (Late Contact Info) Description 10/22/2024 Lab Requisition [facility] - Main Lab 299 [facility] [place] [address] Jose Francisco Morley MD [address] [place] [address] Essential (primary) hypertension Social History [...] Info) Description 05/16/2025 11:00 AM EDT Appointment [facility] Endoscopy [address] [place] [address] Reji Ramos MD [address] [facility] [address] [place], [place] [phone] 07/30/2025 8:30 AM EDT Office Visit Adult Medicine [address], [place] [phone] Clary Greenwood MD [address] [place], [place] 08/22/2025 1:00 PM EDT Office Visit [facility] - [place] 1699 [facility] [address] [place] [address] Keshav Araujo MD 19 [facility] 45 [place] [address] documented as of this encounter Procedures Procedure Name Priority Date/Time Associated Diagnosis Comments COMPLETE BLOOD COUNT Routine 10/22/2024 6:28 AM EST Essential (primary) hypertension COMPREHENSIVE METABOLIC PANEL Routine 10/22/2024 6:28 AM EST Essential (primary) hypertension documented in this encounter Results * (ABNORMAL) Comprehensive metabolic panel (10/22/2024 6:28 AM EST) Sodium 140 133 - 145 mmol/L LAB CHEMISTRY METHOD 10/22/2024 8:15 AM [facility] LAB Potassium 4.4 3.5 - 5.5 mmol/L LAB CHEMISTRY METHOD 10/22/2024 8:15 AM [facility] LAB Chloride 108 96 - 110 mmol/L LAB CHEMISTRY METHOD 10/22/2024 8:15 AM [facility] LAB CO2 26 21 - 32 mmol/L LAB CHEMISTRY METHOD 10/22/2024 8:15 AM [facility] LAB Anion Gap 6 3 - 11 LAB CHEMISTRY METHOD 10/22/2024 8:15 AM [facility] LAB Glucose 111(H) 70 - 100 mg/dL LAB CHEMISTRY METHOD 10/22/2024 8:15 AM [facility] LAB BUN 20 5 - 25 mg/dL LAB CHEMISTRY METHOD 10/22/2024 8:15 AM [facility] LAB Creatinine 0.80 0.50 - 1.10 mg/dL LAB CHEMISTRY METHOD 10/22/2024 8:15 AM [facility] LAB eGFR 80 >=60 mL/min/1. 73m2 LAB CHEMISTRY METHOD 10/22/2024 8:15 AM [facility] LAB Comment:Calculation based on the??Chronic Kidney Disease Epidemiology Collaboration (CKD-EPI) equation refit??without adjustment for race. BUN/Creatinine Ratio 25.0 LAB CHEMISTRY METHOD 10/22/2024 8:15 AM [facility] LAB Calcium 9.1 8.5 - 10.5 mg/dL LAB CHEMISTRY METHOD 10/22/2024 8:15 AM [facility] LAB AST (SGOT) 34 10 - 42 unit/L LAB CHEMISTRY METHOD 10/22/2024 8:15 AM [facility] LAB ALT (SGPT) 50 10 - 60 unit/L LAB CHEMISTRY METHOD 10/22/2024 8:15 AM [facility] LAB Alkaline Phosphatase 86 42 - 121 unit/L LAB CHEMISTRY METHOD 10/22/2024 8:15 AM [facility] LAB Total Protein 6.8 6.0 - 8.0 g/dL LAB CHEMISTRY METHOD 10/22/2024 8:15 AM [facility] LAB Albumin 3.9 3.2 - 5.0 g/dL LAB CHEMISTRY METHOD 10/22/2024 8:15 AM [facility] LAB Total Bilirubin 0.5 0.0 - 1.4 mg/dL LAB CHEMISTRY METHOD 10/22/2024 8:15 AM [facility] LAB Blood Venous blood specimen / Unknown Venipuncture / Unknown 10/22/2024 6:28 AM EST 10/22/2024 7:28 AM EST us Jose Francisco Morley MD LAB BLOOD ORDERABLES Final Resu lt [facility] LAB [address] [place] [address], * Complete blood count (10/22/2024 6:28 AM EST) [facility] WBC 6.7 4.8 - 10.8 K/mcL LAB HEMETOLOGY METHOD 10/22/2024 7:52 AM [facility] LAB RBC 4.20 3.80 - 4.80 M/mcL LAB HEMETOLOGY METHOD 10/22/2024 7:52 AM [facility] LAB Hemoglobin 13.2 11.5 - 16.0 g/dL LAB HEMETOLOGY METHOD 10/22/2024 7:52 AM [facility] LAB Hematocrit 40.0 35.0 - 47.0 % LAB HEMETOLOGY METHOD 10/22/2024 7:52 AM [facility] LAB MCV 94.6 79.0 - 98.0 FL LAB HEMETOLOGY METHOD 10/22/2024 7:52 AM [facility] LAB MCH 31.2 27.0 - 32.0 pcg LAB HEMETOLOGY METHOD 10/22/2024 7:52 AM [facility] LAB MCHC 33.0 32.0 - 37.0 g/dL LAB HEMETOLOGY METHOD 10/22/2024 7:52 AM [facility] LAB RDW 13.6 11.0 - 15.0 % LAB HEMETOLOGY METHOD 10/22/2024 7:52 AM [facility] LAB Platelets 237 130 - 400 K/mcL LAB HEMETOLOGY METHOD 10/22/2024 7:52 AM [facility] LAB MPV 9.6 7.0 - 11.0 FL LAB HEMETOLOGY METHOD 10/22/2024 7:52 AM [facility] LAB NRBC 0.0 <1.0 % LAB HEMETOLOGY METHOD 10/22/2024 7:52 AM [facility] LAB NRBC Absolute 0.00 <0.10 K/mcL LAB HEMETOLOGY METHOD 10/22/2024 7:52 AM EST [facility] LAB Blood Venous blood specimen / Unknown Venipuncture / Unknown 10/22/2024 6:28 AM EST 10/22/2024 7:28 AM EST us Jose Francisco Morley MD LAB BLOOD ORDERABLES Final Resu lt [facility] LAB [address] [place] [address], documented in this encounter Visit Diagnoses Diagnosis Essential (primary) hypertension Unspecified essential hypertension documented in this encounter Care Teams Drive Away Driver Relationship Specialty Start Date End Date Clary Greenwood MD [address] [place] [address] PCP - General 11/30/1992 documented as of this encounter
--- OUTSIDE RECORDS SUMMARY | 2025-04-05 08:24 | XMS_ITS | Data Portability ---
Author Organization [place] [facility] [place] Address [address] [place] [address] Care Team Providers Care Trash Hauler Name Role Phone RONALD AMOS Primary Care Provider RONALD AMOS Referring Provider [phone] RONALD AMOS Primary Care Provider AMBREEN MARR Warehouser Assessment Encounter Date Assessment Date Assessment LastModified [...] We will call her with these results. [email or web address] Not available 05/10/2024 14:31:33 05/17/2024 05/17/2024 INTERIM [...] view 2023 024 [email or web address] [facility], [address], [place], [address], 4 16:12:00 XR, knee, 3 view 2023 024 [email or web address] [facility], [address], [place], [address], 4 15:17:19 XR, wrist, 3 or more view 2023 024 [email or web address] [email or web address] [facility], [address], [place], [address], 4 12:20:33 XR, wrist, 3 or more view 2023 024 [email or web address] z5 [facility], [address], [place], [address], 4 16:59:11 XR, wrist, 3 or more view 2023 024 [email or web address] z5 [facility], [address], [place], [address], 4 15:25:17 Medication Orders None recorded. Patient TargetsNo targets recorded. Patient InstructionsNo instructions recorded. Reason for Referral None Reported. Results Created Date Observation Date Name Description Value Unit Range Abnormal Flag Note LastModifiedBy Organization Detail LastModifiedTime Result Notes None recorded. Problems Name Problem SNOMED Code Status Onset Date Resolution Date Notes Provider Name and Address Organization Details Recorded Time Localized, primary osteoarthri tis of the wrist 788938411 Active 2022 Rory Mendez MD [address], [facility] [place], [address], [place] [facility] 3 08:49:47 Pain of right knee joint 1424964603994 00 Active 2023 Gonzalo Pope MD [address], [facility] [place], [address], [place] [facility] 4 14:29:35 Problem Notes None recorded. Procedures Surgical History Date Name Laterality Status Provider Name and Address Organization Details Recorded Time 4 Splint Short Arm 11+ completed Scott Ware [place] [facility] 12/08/2023 14:43:09 3 AONE wrist/elbow cortisone injection completed Rory Mendez MD [address], [place], [address], [place] [facility] 09/29/2023 14:34:59 3 AONE wrist/elbow cortisone injection completed Rory Mendez MD [address], [place], [address], [place] [facility] 06/10/2023 08:55:58 Imaging Results None recorded. Procedure Notes None recorded. Medical Equipment None Reported. Allergies Allergen ID Allergen Name Allergen Category Reaction Reaction Severity Criticality Documentation Date Start Date Code Code System Note Provider Name and Address Organization Details Recorded Time 44728 hydrochlo rothiazid e medicatio n Not available Not available Not available 10/27/2023 5487 RxNorm Scott Wheat [facility], [place] [facility] 3 14:09:13 00769 hydrocodo ne Not available Not available Not available Not available 10/27/2023 5489 RxNorm Scott Ware null, [place] [facility] 3 14:09:31 97007 Levophed medicatio n Not available Not available Not available 10/27/2023 35411 9 RxNorm Scott Wheat null, [place] [facility] 3 14:12:08 59960 cephalexi n medicatio n Not available Not available Not available 10/27/2023 2231 RxNorm Scott Wheat null, [place] [facility] 3 14:12:17 37231 sulfameth oxazole / trimethop rim medicatio n Not available Not available Not available 10/27/2023 12630 RxNorm Scott Wheat null, [place] [facility] 3 14:12:58 37449 Augmentin medicatio n Not available Not available Not available 10/27/2023 16707 2 RxNorm Scott Wheat null, [place] [facility] 3 14:13:05 42476 meperidin e medicatio n Not available Not available Not available 10/27/2023 6754 RxNorm Scott Wheat null, [place] [facility] 3 14:13:15 49962 amoxicill in medicatio n Not available Not available Not available 10/27/2023 723 RxNorm Scott Wheat null, [place] [facility] 3 14:13:20 28833 clavulani c acid Not available Not available Not available Not available 10/27/2023 32230 RxNorm Scott Wheat [place], [place] [facility] 3 14:13:29 37789 codeine medicatio n itching Not available high 10/27/2023 2670 RxNorm Frida Eliezer null, [place] [facility] 3 15:02:55 13239 tramadol medicatio n itching Not available high 12/09/2023 95355 RxNorm Frida Martins null, [place] [facility] 4 13:15:41 Medications Name Sig Start [...] Updated DateTime 03/08/2024 162.56 cm 31.8 kg/m2 [address]990.[address] [place] [facility] 03/08/2024 09:03:55 Date Recorded Body height Provider Name an d Address Organization Details Last Updated DateTime 05/10/2024 162.56 [address] Mon[address] [facility] 05/10/2024 13:57:32 Social History None recorded. Functional Status Question Answer Note LastModified by Organization D etails LastModified Time What is your level of alcohol consumption? None [email or web address] Information not available 06/09/2023 Mental Status None recorded. Family History Nothing Reported. Medical History Condition Response Rheumatoid Arthritis Y Hypertension Y Osteoporosis Y Gynecological HistoryNo gynecological history recorded. Obstetrics History GPAL:G 0 P 0 0 0 0 Past Encounters Encounter ID Performer Location Encounter Start Date Encounter Closed Date Diagnosis/Indication Diagnosis SNOMED-CT Code Diagnosis ICD10 Code Diagnosis Note [id number] MD RICKY Shi [place] [address] [facility] [address] [place] [address] 06/09/2023 14:15:27 06/09/2023 15:21:34 Pain of left wrist 4763273364 49421 M25.532 Localized, primary osteoarthritis of the wrist 103594878 M19.039 Left wrist radioscaph oid joint [id number] MD RICKY Briggs [facility] [address] [facility] [address] [place] [address] 07/02/2023 14:22:33 07/02/2023 14:50:08 History of right total knee replacement 1220610638 589897 Z96.651 Aftercare 668038849 Z47. 1 [id number] MD RICKY Shi [place] [id number] 07/07/2023 14:17:06 07/07/2023 14:36:03 Localized, primary osteoarthritis of the wrist 327227372 M19.039 Left wrist radioscaph oid joint [id number] MD RICKY Shi [place] [phone] 09/29/2023 13:06:12 09/29/2023 14:31:32 Localized, primary osteoarthritis of the wrist 725221408 M19.039 Left wrist radioscaph oid joint [id number] MD RICKY Shi [address] [address] 10/27/2023 13:35:31 10/27/2023 14:46:38 Localized, primary osteoarthritis of the wrist 271953616 M19.039 Left wrist radioscaph oid joint [id number] MD GADIEL Shi[address] [address] 12/08/2023 13:45:57 12/08/2023 14:48:58 Localized, primary osteoarthritis of the wrist 550166308 M19.039 Left wrist radioscaph oid joint [id number] [address] 12/17/2023 12:51:11 12/17/2023 13:36:01 Postoperative visit 111615776 Z48.89 [id number] MD GADIEL [address] [address] 12/29/2023 09:58:19 12/29/2023 10:30:35 Pain of left wrist 2995521744 76608 M25.532 Localized, primary osteoarthritis of the wrist 176342746 M19.039 Left wrist radioscaph oid joint [id number] MD RICKY Shi [address] [address] 01/26/2024 10:54:58 01/26/2024 11:23:45 Localized, primary osteoarthritis of the wrist 703724471 M19.039 Left wrist radioscaph oid joint [id number] MD RICKY Shi [place] [address] [address] 03/08/2024 08:52:44 03/08/2024 09:23:30 Pain of left wrist 7242443179 22351 M25.532 Additional diagnosis detail: Pain in left wrist Localized, primary osteoarthritis of the wrist 667236823 M19.039 Left wrist radioscaph oid joint [id number] MD RICKY Briggs [address] [place] [address] 05/10/2024 13:29:20 05/10/2024 14:25:35 History of right total knee replacement 6691219928 517223 Z96.651 Additional diagnosis detail: History of total right knee replacemen t Surgical follow-up 14534 4000 Z47.1 Z96.651 Additional diagnosis detail: Aftercare following right knee joint replacemen t surgery Pain of ri ght knee joint 4666765837 88894 M25.561 Additional diagnosis detail: Pain, joint, knee, right [id number] MD RICKY hSi [address] [address] 05/17/2024 13:47:43 05/17/2024 14:25:41 Pain of left wrist 2994886021 73778 M25.532 Additional diagnosis detail: Pain in left wrist Localized, primary osteoarthritis of the wrist 199714970 M19.039 Left wrist radioscaph oid joint Health Concerns Section Related Observation LastModified by Organization Detai ls LastModified Time None Recorded Concern Status LastModified by Organization Details LastModified Time None Recorded Advance Directives Directive None Recorded Payers Encounter Date Sequence Insurance Name Policy Number Policy Verdugo Covered Member ID Verdugo Member ID Guarantor Name 12/29/2023 1 [place]: ANA Shea [id number] 2 Alethea Shabbir 12/29/2023 2 [place] [employer] - [employer] 111 Alethea A Shabbir [id number] Alethea Paul 01/26/2024 1 MEDICARE [place]: NGS Alethea A Shabbir [id number] 2 Alethea Shabbir 01/26/2024 2 [place] 111 Alethea A Shabbir [id number] Alethea Shea 03/08/2024 1 [place]ARE [place] N[place] Alethea A Shabbir [id number] 2 Alethea Shabbir 03/08/2024 2 [place] [facility] [employer] 111 Alethea A Shabbir [id number] Alethea Paul 05/10/2024 1 [place]ARE [place]: NGS Alethea A Shabbir [id number] 2 Alethea Shabbir 05/10/2024 2 [place] [facility] [employer] 111 Alethea Muniz Shabbir [id number] Alethea Shea 05/17/2024 1 [place]ICARE [place]: NGS Alethea A Shabbir [id number] 2 Alethea Shabbir 05/17/2024 2 [place]: [facility] 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
--- OUTSIDE RECORDS SUMMARY | 2025-04-05 08:24 | XMS_ITS | Clinical Summary ---
Author Organization [facility] Address [address] [place] [address] Care Team Providers Care Regional Sales Engineer Name Role Phone Clary Greenwood MD Primary Care Provider [phone] Allergies Active Allergy Reactions Criticality Noted Date [...] this topic Medical Devices Implanted Type Area Reel Slitter Device Identifier Shelf Expiration Date Model / Serial / Lot Cement Bone Surg Simplex Radiopq Stry-Howm 7052-6-906-114 092 - [id number] Implanted:Qty: 1 on 01/26/2022 by Gonzalo Pope MD at [facility] Left: Knee [employer] 6191-1-010 / / Cement Bone Surg Simplex Radiopq Stry-Howm 5374-2-663-114 092 - [id number] Implanted:Qty: 1 on 01/26/2022 by Gonzalo Pope MD at [facility] Left: Knee [employer] 6191-1-010 / / Knee Bsplt Triathlon Ti Sz 4 Stry-Howm 6122-D-866-552 543 - [id number] Implanted:Qty: 1 on 01/26/2022 by Gonzalo Pope MD at [facility] Left: Knee [employer] [id number] 10/27/2026 5536-B-400 / / [id number] Knee Ptla Asym Tritanium 32x10 Stry-Howm 4079-B-647-606 039 - [id number] Implanted:Qty: 1 on 01/26/2022 by Gonzalo Pope MD at [facility] Left: Knee [employer] [id number] 10/16/2026 5552-L-320 / / [id number] Knee Tib Insrt Cr-X3 4s6k46bl Stry-Howm 2781-K-640-631 525 - [id number] Implanted:Qty: 1 on 01/26/2022 by Gonzalo Pope MD at [facility] Left: Knee [employer] [id number] 02/10/2025 5530-G-411 / / [id number] Knee Fem Bsplt W Pa Stry-Howm 9604-W-639-645 553 - [id number] Implanted:Qty: 1 on 01/26/2022 by Gonzalo Pope MD at [facility] Left: Knee [employer] [id number] 10/26/2026 5517-F-401 / / [id number] Tibial Bearing Insert Cs 10mm Stry-Howm 1656-O-025-E-7 43747 - [id number] Implanted:Qty: 1 on 06/22/2022 by Gonzalo Pope MD at [facility] Right: Knee [employer] [id number] 05/05/2027 5531-G-410 -E / / [id number] Knee Bsplt Triathlon Ti Sz 4 Stry-Howm 0136-S-886-552 543 - [id number] Implanted:Qty: 1 on 06/22/2022 by Gonzalo Pope MD at [facility] Right: Knee [employer] [id number] 04/09/2027 5536-B-400 / / [id number] Knee Fem Bsplt W Pa Stry-Howm 8819-A-901-645 552 - [id number] Implanted:Qty: 1 on 06/22/2022 by Gonzalo Pope MD at [facility] Right: Knee [employer] [id number] 03/29/2027 5517-F-402 / / [id number] Knee Ptla Asym Tritanium 32x10 Stry-How 4202-L-288-606 039 - [id number] Implanted:Qty: 1 on 06/22/2022 by Gonzalo Pope MD at [facility] Right: Knee [employer] [id number] 04/01/2027 5552-L-320 / / [id number] Explanted Type Area Reel Slitter Device Identifier Shelf Expiration Date Model / Serial / Lot Tibial Bearing Insert Cs 10mm [employer] 4295-N-918-E-7 [id number] - [id number] Explanted:Qty: 1 on 06/22/2022 by Gonzalo Pope MD at [facility] Right: Knee [employer] [id number] 05/04/2027 5531-G-410 -E / / [id number] Advance Directives For more information, please contact: [phone] Documents on File Type Date Recorded 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 Care Teams Regional Sales Engineer Relationship Specialty Start Date End Date Clary Greenwood MD PCP - General Internal Medicine 12/01/21
== END 2025-04-05 08:53 | disposition home or self-care (01) ==
PROVIDERS: PCP Internal Medicine; Visit Provider Physician Assistant
DX: M25.522 Pain in left elbow (principal)

== ENCOUNTER 2025-04-05 08:16 | Outpatient (REF) | payer MEDICARE, BC, SELFPAY ==
--- NOTE | ~2025-04-05 | XR_ITS ---
EXAMINATION: XR ELBOW, LEFT CLINICAL INFORMATION: M25.522 - Pain in left elbow COMPARISON: None available. TECHNIQUE: AP, lateral, and oblique views of the left elbow. FINDINGS: The bones and soft tissues are normal. No fracture or joint effusion. Alignment is anatomic. Mild degenerative changes in the elbow joint. Minimal enthesopathic spurring of both epicondyles. XR/XR elbow LT min 3V IMPRESSION: 1. No acute bony abnormalities or joint effusion. 2. Mild degenerative changes in the elbow joint. 3. Mild enthesopathic spurring of both epicondyles. Electronically signed by: Angel Darden MD 04/05/2025 08:58 AM EDT
--- OUTSIDE RECORDS SUMMARY | 2025-04-05 09:00 | XMS_ITS | Clinical Summary ---
Author Organization [facility] Address [address] [place] [address] Phone Care Team Providers Care Wire Brush Maker Name Role Phone Clary Greenwood MD Primary Care Provider [phone] Allergies Active Allergy Reactions Criticality Noted Date [...] Problem Noted Date Diagnosed Date Stroke (cerebrum) ([facility] [place], [facility] V28) Assessment & Plan (02/13/2025 11:18 AM EDT): Prediabetes 06/19/2024 Assessment & Plan (02/13/2025 11:18 AM EDT): Orders: Hemoglobin A1c; Future [place] (stress urinary incontinence, female) 2022 Overview (01/31/2024): Last Assessment & Plan: Reviewed behavioral modifications including weight loss, kegel exercises, etc. Severe obesity (BMI 35.0-35. 9 with comorbidity) ([facility] V24, [facility] V28) 12/09/2022 Osteopenia 09/10/2022 Total knee replacement status 03/02/2022 Overview (11/04/2024): 02/10 left TKR 06/12 right TKR Osteoarthritis of both knees 05/15/2020 Overview (11/04/2024): L>R Obesity (BMI 30.0-34.9) 06/07/2018 Pulmonary nodules/lesions, multiple 09/12/2014 Medial meniscus tear 04/04/2014 Hyperlipidemia 11/09/2012 Assessment & Plan (02/13/2025 11:18 AM EDT): Orders: Lipid panel with reflex to direct LDL; Future Retinal vein occlusion ([facility] V28) 01/04/2012 Overview (11/04/2024): Left, laser treatment [...] Description 02/20/2025 9:30 AM EDT Office Visit [facility] [address] [place] [address] [phone] Frida Londono NP Primary hypertension (Primary Dx); Bilateral lower extremity edema; Mixed hyperlipidemia; Abnormal EKG; Cerebrovascular accident (CVA), unspecified mechanism (CMS/HCC V24, CMS/HCC V28) 02/13/2025 11:00 AM EDT Office Visit Adult Medicine [address] [phone] Clary Greenwood MD Encounter for annual wellness visit (AWV) in Medicare patient (Primary Dx); Essential hypertension, benign; Other hyperlipidemia; Cerebrovascular accident (CVA) due to thrombosis of right posterior cerebral artery (CMS/HCC V24, CMS/HCC V28); Prediabetes; Venous (peripheral) insufficiency; Screening for colon cancer 02/06/2025 Telephone Adult Medicine [address] [phone] Clary Greenwood MD Request For Order(s); Provider Call Back 02/01/2025 Billing Patient Not Present Adult Medicine [address] [phone] Clary Greenwood MD 01/29/2025 Telephone Adult Medicine [address] [phone] Giulia Hemphill RN Faxed Order (ATI PT Medicare Progress Note Order# [id number]) from Last 3 Months Immunizations Name Administration Dates Next Due Influenza trivalent, 0.5mL ( Fluad) 65yo and older 07/25/2024 Influenza trivalent, 0.5mL ( Fluzone High-dose) 65yo and older 08/22/2023 Influenza, Unspecified 08/24/2022,2020,09/15/2020,08/23,11/24/2018,11/26/2016,01/30/2015 ,09/15/2013,01/04/2012,12/27/2009 [employer] SARS-CoV-2 COVID-19, mRNA, LNP-S, preservative free 04/06/2022,09/26/2021 [...] cervical spi ne 02/09/2008 Retinal vein occlusion ([facility] V28) 01/04/2012 Left, laser treatment Incontinence of [...] Info) Description 05/16/2025 11:00 AM EDT Appointment [facility] [address] [place] [address] Reji Ramos MD 229 [facility] [address] [place] [address] 07/30/2025 8:30 AM EDT Office Visit Adult Medicine [facility] [address] [place] [address] Clary Greenwood MD [address] [place] [address] 08/22/2025 1:00 PM EDT Office Visit [facility] [address] [facility] [address] [place] [address] Keshav Araujo MD 19 [facility] [address] [place] [address] Health Maintenance Due Date Last Done Comments [...] this topic Medical Devices Implanted Type Area Dice Manager Device Identifier Shelf Expiration Date Model / Serial / Lot Cement Bone Surg Simplex Radiopq [facility]-How 8345-8-722-114 092 Implanted:Qty: 1 on 01/26/2022 by Gonzalo Pope MD Left: Knee [employer] 6191-1-010 / / Cement Bone Surg Simplex Radiopq Stry-Howm 1091-3-403-114 092 Implanted:Qty: 1 on 01/26/2022 by Gonzalo Pope MD Left: Knee [employer] 6191--010 / / Knee Bsplt Triathlon Ti Sz 4 Stry-Howm 0962-Z-223-552 543 Implanted:Qty: 1 on 01/26/2022 by Gonzalo Pope MD Left: Knee [employer] [id number] 10/27/2026 5536-B-400 / / [id number] Knee Ptla Asym Tritanium 32x10 Stry-Howm 6816-L-750-606 039 Implanted:Qty: 1 on 01/26/2022 by Gonzalo Pope MD Left: Knee [employer] [id number] 10/16/2026 5552-L-320 / / [id number] Knee Tib Insrt Cr-X3 6k0b82bs Stry-How 9992-E-746-631 525 Implanted:Qty: 1 on 01/26/2022 by Gonzalo Pope MD Left: Knee [employer] [id number] 02/10/2025 5530-G-411 / / [id number] Knee Fem Bsplt W Pa Stry-How 0367-C-256-645 553 Implanted:Qty: 1 on 01/26/2022 by Gonzalo Pope MD Left: Knee [employer] [id number] 10/26/2026 5517-F-401 / / [id number] Tibial Bearing Insert Cs 10mm Stry-How 8049-S-244-E-7 11965 Implanted:Qty: 1 on 06/22/2022 by Gonzalo Pope MD Right: Knee [employer] [id number] 05/05/2027 5531-G-410 -E / / [id number] Knee Bsplt Triathlon Ti Sz 4 Stry-Howm 1981-D-292-552 543 Implanted:Qty: 1 on 06/22/2022 by Gonzalo Pope MD Right: Knee [employer] [id number] 04/09/2027 5536-B-400 / / [id number] Knee Fem Bsplt W Pa Stry-Howm 6848-D-759-645 552 Implanted:Qty: 1 on 06/22/2022 by Gonzalo Pope MD Right: Knee [employer] [id number] 03/29/2027 5517-F-402 / / [id number] Knee Ptla Asym Tritanium 32x10 Stry-Howm 5001-A-280-606 039 Implanted:Qty: 1 on 06/22/2022 by Gonzalo Pope MD Right: Knee [employer] [id number] 04/01/2027 5552-L-320 / / [id number] Procedures Procedure [...] LAB CHEMISTRY METHOD 02/13/2025 3:50 PM EDT [facility] Triglycerides 117 0 - 150 mg/dL LAB CHEMISTRY METHOD 02/13/2025 3:50 PM EDT [facility] HDL 56 >=40 mg/dL LAB CHEMISTRY METHOD 02/13/2025 3:50 PM EDT [facility] LDL Calculated 93 0 - 100 mg/dL LAB CHEMISTRY METHOD 02/13/2025 3:50 PM EDT [facility] VLDL Cholesterol Erasmo 23.4 mg/dL LAB CHEMISTRY METHOD 02/13/2025 3:50 PM EDT [facility] Non HDL Chol. (LDL+VLDL) 116 <145 mg/dL LAB CHEMISTRY METHOD 02/13/2025 3:50 PM EDT [facility] Chol/HDL Ratio 3.1 0.0 - 4.4 LAB CHEMISTRY METHOD 02/13/2025 3:50 PM EDT [facility] Blood Venous blood specimen / Unknown Venipuncture / Unknown 02/13/2025 12:22 PM EDT 02/13/2025 12:22 PM EDT us Clary Greenwood MD LAB BLOOD ORDERABLES Final Resul t [facility] [address] [place] [address], [place] [phone] * Hemoglobin A1c (02/13/2025 12:22 PM EDT) Hemoglobin A1C 6.0 <6.5 % LAB CHEMISTRY METHOD 02/13/2025 9:12 PM EDT [facility] Mean Bld Glu Estim. 126 mg/dL LAB CHEMISTRY METHOD 02/13/2025 9:12 PM EDT [facility] Blood Venous blood specimen / Unknown Venipuncture / Unknown 02/13/2025 12:22 PM EDT 02/13/2025 12:22 PM EDT us Clary Greenwood MD LAB BLOOD ORDERABLES Final Resul t [facility] [address] [place] [address], [place] [phone] * (ABNORMAL) Basic metabolic panel (02/13/2025 12:22 PM EDT) Sodium 140 133 - 145 mmol/L LAB CHEMISTRY METHOD 02/13/2025 3:50 PM [facility] Potassium 4.3 3.5 - 5.5 mmol/L LAB CHEMISTRY METHOD 02/13/2025 3:50 PM [facility] Chloride 105 96 - 110 mmol/L LAB CHEMISTRY METHOD 02/13/2025 3:50 PM [facility] CO2 30 21 - 32 mmol/L LAB CHEMISTRY METHOD 02/13/2025 3:50 PM [facility] Anion Gap 5 3 - 11 LAB CHEMISTRY METHOD 02/13/2025 3:50 PM [facility] Glucose 100 70 - 100 mg/dL LAB CHEMISTRY METHOD 02/13/2025 3:50 PM [facility] BUN 26(H) 5 - 25 mg/dL LAB CHEMISTRY METHOD 02/13/2025 3:50 PM [facility] Creatinine 0.84 0.50 - 1.10 mg/dL LAB CHEMISTRY METHOD 02/13/2025 3:50 PM [facility] eGFR 75 >=60 mL/min/1. 73m2 LAB CHEMISTRY METHOD 02/13/2025 3:50 PM [facility] Comment:Calculation based on the??Chronic Kidney Disease Epidemiology Collaboration (CKD-EPI) equation refit??without adjustment for race. BUN/Creatinine Ratio 31.0 LAB CHEMISTRY METHOD 02/13/2025 3:50 PM EDT [facility] Calcium 9.6 8.5 - 10.5 mg/dL LAB CHEMISTRY METHOD 02/13/2025 3:50 PM EDT [facility] Blood Venous blood specimen / Unknown Venipuncture / Unknown 02/13/2025 12:22 PM EDT 02/13/2025 12:22 PM EDT us Clary Greenwood MD LAB BLOOD ORDERABLES Final Resul t [facility] [address] [place] [address], * SCREENING MAMMOGRAPHY BI 2-VIEW BREAST INC [...] Recommendation: Routine annual screening mammography is recommended [facility] [address] [id number] Procedure Note Pierce Ceballos MD - 09/23/2024 [...] Recommendation: Routine annual screening mammography is recommended [address] [address] Clary Greenwood MD IMG XR PROCEDURES Final [...] (World Health Organization Fracture Risk Assessment) [facility] Department of Internal Medicine recommends using [...] (World Health Organization Fracture Risk Assessment) [facility] Department of Internal Medicine recommendsusing National [...] Resu lt * Hepatitis C Screening (05/11/2013) [facility] Hepatitis C Screening abstracted Historical Provider HEALTH MAINTENANCE Final Result from Last 3 Months or Most Recently Relevant to Health Maintenance Insurance MEDICARE [facility] Care Teams Wire Brush Maker Relationship Specialty Start Date End Date Clary Greenwood MD [address] [place] [id number] PCP - General 11/30/1992
--- OUTSIDE RECORDS SUMMARY | 2025-04-05 09:00 | XMS_ITS | Encounter Summary ---
Author Organization [facility] Address [address] [place] [address] Care Team Providers Care Stain Sprayer Name Role Phone Clary Greenwood MD Primary Care Provider [phone] Encounter Details Date Type Department Care Team (Late Contact Info) Description 10/24/2024 Lab Requisition [facility] - Main Lab 299 [facility] [place] [address] Jose Francisco Morley MD [address] [place] [address] Other specified abnormal findings of [...] Info) Description 05/16/2025 11:00 AM EDT Appointment [facility] Endoscopy [address] [place] [address] Reji Ramos MD 229 [facility] [address] [place], [place] [address] 07/30/2025 8:30 AM EDT Office Visit Adult Medicine [facility] [address] [place] [address] Clary Greenwood MD [address] [place], [place] 08/22/2025 1:00 PM EDT Office Visit [facility] [place] [address] [phone] Keshav Araujo MD 19 [facility] [address] [place] [address] documented as of this encounter Procedures Procedure [...] LAB CHEMISTRY METHOD 10/24/2024 11:06 AM EST [facility] Potassium 4.5 3.5 - 5.5 mmol/L LAB CHEMISTRY METHOD 10/24/2024 11:06 AM EST [facility] Chloride 110 96 - 110 mmol/L LAB CHEMISTRY METHOD 10/24/2024 11:06 AM EST [facility] CO2 24 21 - 32 mmol/L LAB CHEMISTRY METHOD 10/24/2024 11:06 AM [facility] Anion Gap 6 3 - 11 LAB CHEMISTRY METHOD 10/24/2024 11:06 AM [facility] Glucose 103(H) 70 - 100 mg/dL LAB CHEMISTRY METHOD 10/24/2024 11:06 AM [facility] BUN 24 5 - 25 mg/dL LAB CHEMISTRY METHOD 10/24/2024 11:06 AM [facility] Creatinine 0.73 0.50 - 1.10 mg/dL LAB CHEMISTRY METHOD 10/24/2024 11:06 AM [facility] eGFR 90 >=60 mL/min/1. 73m2 LAB CHEMISTRY METHOD 10/24/2024 11:06 AM [facility] Comment:Calculation based on the??Chronic Kidney Disease Epidemiology Collaboration (CKD-EPI) equation refit??without adjustment for race. BUN/Creatinine Ratio 32.9 LAB CHEMISTRY METHOD 10/24/2024 11:06 AM [facility] Calcium 8.7 8.5 - 10.5 mg/dL LAB CHEMISTRY METHOD 10/24/2024 11:06 AM [facility] AST (SGOT) 18 10 - 42 unit/L LAB CHEMISTRY METHOD 10/24/2024 11:06 AM [facility] ALT (SGPT) 36 10 - 60 unit/L LAB CHEMISTRY METHOD 10/24/2024 11:06 AM [facility] Alkaline Phosphatase 83 42 - 121 unit/L LAB CHEMISTRY METHOD 10/24/2024 11:06 AM [facility] Total Protein 5.6(L) 6.0 - 8.0 g/dL LAB CHEMISTRY METHOD 10/24/2024 11:06 AM [facility] Albumin 3.3 3.2 - 5.0 g/dL LAB CHEMISTRY METHOD 10/24/2024 11:06 AM [facility] Total Bilirubin 0.3 0.0 - 1.4 mg/dL LAB CHEMISTRY METHOD 10/24/2024 11:06 AM [facility] Blood Venous blood specimen / Unknown Venipuncture / Unknown 10/24/2024 5:26 AM EST 10/24/2024 9:59 AM EST us Jose Francisco Morley MD LAB BLOOD ORDERABLES Final Resu lt [facility] [address] [place] [address], [place] [phone] * (ABNORMAL) Complete blood count (10/24/2024 5:26 AM EST) WBC 6.1 4.8 - 10.8 K/mcL LAB HEMETOLOGY METHOD 10/24/2024 11:00 AM [facility] RBC 3.70(L) 3.80 - 4.80 M/mcL LAB HEMETOLOGY METHOD 10/24/2024 11:00 AM [facility] Hemoglobin 11.4(L) 11.5 - 16.0 g/dL LAB HEMETOLOGY METHOD 10/24/2024 11:00 AM [facility] Hematocrit 35.5 35.0 - 47.0 % LAB HEMETOLOGY METHOD 10/24/2024 11:00 AM [facility] MCV 96.5 79.0 - 98.0 FL LAB HEMETOLOGY METHOD 10/24/2024 11:00 AM [facility] MCH 31.0 27.0 - 32.0 pcg LAB HEMETOLOGY METHOD 10/24/2024 11:00 AM [facility] MCHC 32.1 32.0 - 37.0 g/dL LAB HEMETOLOGY METHOD 10/24/2024 11:00 AM [facility] RDW 13.9 11.0 - 15.0 % LAB HEMETOLOGY METHOD 10/24/2024 11:00 AM [facility] Platelets 216 130 - 400 K/mcL LAB HEMETOLOGY METHOD 10/24/2024 11:00 AM EST [facility] MPV 10.1 7.0 - 11.0 FL LAB HEMETOLOGY METHOD 10/24/2024 11:00 AM EST [facility] NRBC 0.0 <1.0 % LAB HEMETOLOGY METHOD 10/24/2024 11:00 AM EST [facility] NRBC Absolute 0.00 <0.10 K/mcL LAB HEMETOLOGY METHOD 10/24/2024 11:00 AM EST [facility] Blood Venous blood specimen / Unknown Venipuncture / Unknown 10/24/2024 5:26 AM EST 10/24/2024 9:59 AM EST us Jose Francisco Morley MD LAB BLOOD ORDERABLES Final Resu lt [facility] [address] [place] [address], documented in this encounter Visit Diagnoses Diagnosis Other specified abnormal findings of blood chemistry Hyperlipidemia, unspecified Cerebral infarction, unspecified (CMS/HCC V24, CMS/HCC V28) Essential (primary) hypertension Unspecified essential hypertension documented in this encounter Care Teams Stain Sprayer Relationship Specialty Start Date End Date Clary Greenwood MD [address] [place] [address] PCP - General 11/30/1992 documented as of this encounter
--- OUTSIDE RECORDS SUMMARY | 2025-04-05 09:00 | XMS_ITS | Encounter Summary ---
Author Organization [facility] Address [address] [place] [address] Care Team Providers Care Outbound Sales Specialist Name Role Phone Clary Greenwood MD Primary Care Provider [phone] Encounter Details Date Type Department Care Team (Late Contact Info) Description 10/22/2024 Lab Requisition [facility] - Main Lab 299 [facility] [place] [address] Jose Francisco Morley MD [address] [place] [address] Essential (primary) hypertension Social History [...] Info) Description 05/16/2025 11:00 AM EDT Appointment [facility] Endoscopy [address] [place] [address] Reji Ramos MD 229 [facility] [address] [place], [place] [phone] 07/30/2025 8:30 AM EDT Office Visit Adult Medicine [address], [place] [phone] Clary Greenwood MD [address] [place], [place] 08/22/2025 1:00 PM EDT Office Visit [facility] [place] 1699 [facility] [address] [place] [address] Keshav Araujo MD 19 [facility] [address] [place] [address] documented as of this encounter Procedures Procedure [...] Final Resu lt [facility] [address] [place] [address], * Complete blood count (10/22/2024 6:28 AM EST) [facility] WBC 6.7 4.8 - 10.8 K/mcL LAB HEMETOLOGY METHOD 10/22/2024 7:[address] [facility] RBC 4.20 3.80 - 4.80 M/mcL LAB HEMETOLOGY METHOD 10/22/2024 7:[address] [facility] Hemoglobin 13.2 11.5 - 16.0 [...] LAB HEMETOLOGY METHOD 10/22/2024 7:52 AM EST [facility] Blood Venous blood specimen / Unknown Venipuncture / Unknown 10/22/2024 6:28 AM EST 10/22/2024 7:28 AM EST us Jose Francisco Morley MD LAB BLOOD ORDERABLES Final Resu lt [facility] [address] [place] [address], documented in this encounter Visit Diagnoses Diagnosis Essential (primary) hypertension Unspecified essential hypertension documented in this encounter Care Teams Outbound Sales Specialist Relationship Specialty Start Date End Date Clary Greenwood MD [address] [place] [address] PCP - General 11/30/1992 documented as of this encounter
--- OUTSIDE RECORDS SUMMARY | 2025-04-05 09:00 | XMS_ITS | Encounter Summary ---
Author Organization [facility] Address [address] [place] [address] Care Team Providers Care Building Guard Deputy Sheriff Name Role Phone Clary Greenwood MD Primary Care Provider [phone] Encounter Details Date Type Department Care Team (Late Contact Info) Description 10/29/2024 Lab Requisition [facility] - Main Lab 299 [facility] [place] [address] Jose Francisco Morley MD [address] [place] [address] Cerebral infarction, unspecified (CMS/HCC V24, [...] [facility] [address] [place] [phone] Reji Ramos MD 229 [facility] [address] [place] [address] 07/30/2025 8:30 AM EDT Office Visit Adult Medicine [facility] [address] [place] [address] Clary Greenwood MD [address] [place] [address] 08/22/2025 1:00 PM EDT Office Visit [facility] [place] 1699 [facility] [address] [place] [address] Keshav Araujo MD 19 [facility] [address] [place] [address] documented as of this encounter Procedures Procedure [...] mmol/L LAB CHEMISTRY METHOD 10/30/2024 10:15 AM [facility] Potassium 4.9 3.5 - 5.5 mmol/L LAB CHEMISTRY METHOD 10/30/2024 10:15 AM [facility] Chloride 109 96 - 110 mmol/L LAB CHEMISTRY METHOD 10/30/2024 10:15 AM [facility] CO2 28 21 - 32 mmol/L LAB CHEMISTRY METHOD 10/30/2024 10:15 AM [facility] Anion Gap 5 3 - 11 LAB CHEMISTRY METHOD 10/30/2024 10:15 AM [facility] Glucose 107(H) 70 - 100 mg/dL LAB CHEMISTRY METHOD 10/30/2024 10:15 AM [facility] BUN 17 5 - 25 mg/dL LAB CHEMISTRY METHOD 10/30/2024 10:15 AM [facility] Creatinine 0.66 0.50 - 1.10 mg/dL LAB CHEMISTRY METHOD 10/30/2024 10:15 AM [facility] eGFR 96 >=60 mL/min/1. 73m2 LAB CHEMISTRY METHOD 10/30/2024 10:15 AM [facility] Comment:Calculation based on the??Chronic Kidney Disease Epidemiology Collaboration (CKD-EPI) equation refit??without adjustment for race. BUN/Creatinine Ratio 25.8 LAB CHEMISTRY METHOD 10/30/2024 10:15 AM [facility] Calcium 9.0 8.5 - 10.5 mg/dL LAB CHEMISTRY METHOD 10/30/2024 10:15 AM [facility] AST (SGOT) 12 10 - 42 unit/L LAB CHEMISTRY METHOD 10/30/2024 10:15 AM [facility] ALT (SGPT) 24 10 - 60 unit/L LAB CHEMISTRY METHOD 10/30/2024 10:15 AM [facility] Alkaline Phosphatase 90 42 - 121 unit/L LAB CHEMISTRY METHOD 10/30/2024 10:15 AM [facility] Total Protein 5.8(L) 6.0 - 8.0 g/dL LAB CHEMISTRY METHOD 10/30/2024 10:15 AM [facility] Albumin 3.3 3.2 - 5.0 g/dL LAB CHEMISTRY METHOD 10/30/2024 10:15 AM [facility] Total Bilirubin 0.4 0.0 - 1.4 mg/dL LAB CHEMISTRY METHOD 10/30/2024 10:15 AM [facility] Blood Venous blood specimen / Unknown Venipuncture / Unknown 10/30/2024 5:24 AM EST 10/30/2024 9:25 AM EST Jose Francisco Morley MD LAB BLOOD ORDERABLES Final Resu lt [facility] [address] [place] [address], * (ABNORMAL) Complete blood count (10/30/2024 5:24 AM EST) WBC 5.9 4.8 - 10.8 K/mcL LAB HEMETOLOGY METHOD 10/30/2024 9:48 AM EST [facility] RBC 3.70(L) 3.80 - 4.80 M/mcL LAB HEMETOLOGY METHOD 10/30/2024 9:48 AM [facility] Hemoglobin 11.5 11.5 - 16.0 g/dL LAB HEMETOLOGY METHOD 10/30/2024 9:48 AM [facility] Hematocrit 35.5 35.0 - 47.0 % LAB HEMETOLOGY METHOD 10/30/2024 9:48 AM EST [facility] MCV 96.2 79.0 - 98.0 FL LAB HEMETOLOGY METHOD 10/30/2024 9:48 AM [facility] MCH 31.2 27.0 - 32.0 pcg LAB HEMETOLOGY METHOD 10/30/2024 9:48 AM [facility] MCHC 32.4 32.0 - 37.0 g/dL LAB HEMETOLOGY METHOD 10/30/2024 9:48 AM EST [facility] RDW 13.5 11.0 - 15.0 % LAB HEMETOLOGY METHOD 10/30/2024 9:48 AM [facility] Platelets 212 130 - 400 K/mcL LAB HEMETOLOGY METHOD 10/30/2024 9:48 AM [facility] MPV 9.9 7.0 - 11.0 FL LAB HEMETOLOGY METHOD 10/30/2024 9:48 AM [facility] NRBC 0.0 <1.0 % LAB HEMETOLOGY METHOD 10/30/2024 9:48 AM EST [facility] NRBC Absolute 0.00 <0.10 K/mcL LAB HEMETOLOGY METHOD 10/30/2024 9:48 AM EST [facility] Blood Venous blood specimen / Unknown Venipuncture / Unknown 10/30/2024 5:24 AM EST 10/30/2024 9:33 AM EST us Jose Francisco Morley MD LAB BLOOD ORDERABLES Final Resu lt [facility] [address] [place] [address], documented in this encounter Visit Diagnoses Diagnosis Cerebral infarction, unspecified (CMS/HCC V24, CMS/HCC V28) Essential (primary) hypertension Unspecified essential hypertension documented in this encounter Care Teams Building Guard Deputy Sheriff Relationship Specialty Start Date End Date Clary Greenwood MD [address] [place] [address] PCP - General 11/30/1992 documented as of this encounter
--- OUTSIDE RECORDS SUMMARY | 2025-04-05 09:00 | XMS_ITS | Encounter Summary ---
Author Organization [facility] Address [address] [place] [address] Care Team Providers Care Pottery Striper Name Role Phone Clary Greenwood MD Primary Care Provider [phone] Encounter Details Date Type Department Care Team (Late Contact Info) Description 10/25/2024 Lab Requisition [facility] - Main Lab 299 [facility] [address] Jose Francisco Morley MD [address] [place] [address] Cerebral infarction, unspecified (CMS/HCC V24, [...] Info) Description 05/16/2025 11:00 AM EDT Appointment [facility] Endoscopy [address] [place] [phone] Reji Ramos MD 229 [facility] [address] [place] [address] 07/30/2025 8:30 AM EDT Office Visit Adult Medicine [facility] [address] [place] [address] Clary Greenwood MD [address] [place] [address] 08/22/2025 1:00 PM EDT Office Visit [facility] [place] 1699 [facility] [address] [place] [address] Keshav Araujo MD [address] [address] documented as of this encounter Procedures Procedure [...] LAB CHEMISTRY METHOD 10/26/2024 9:07 AM EST [facility] BUN 21 5 - [...] 25.0 LAB CHEMISTRY METHOD 10/26/2024 9:07 AM [facility] Calcium 9.4 8.5 - 10.5 mg/dL LAB CHEMISTRY METHOD 10/26/2024 9:07 AM [facility] Blood Venous blood specimen / Unknown Venipuncture / Unknown 10/26/2024 5:19 AM EST 10/26/2024 8:15 AM EST us Jose Francisco Morley MD LAB BLOOD ORDERABLES Final Resu lt [facility] [address] [place] [address], [place] [phone] * (ABNORMAL) Complete blood count (10/26/2024 5:19 AM EST) WBC 6.2 4.8 - 10.8 K/mcL LAB HEMETOLOGY METHOD 10/26/2024 8:38 AM [facility] RBC 3.70(L) 3.80 - 4.80 M/mcL LAB HEMETOLOGY METHOD 10/26/2024 8:38 AM [facility] Hemoglobin 11.6 11.5 - 16.0 g/dL LAB HEMETOLOGY METHOD 10/26/2024 8:38 AM [facility] Hematocrit 35.4 35.0 - 47.0 % LAB HEMETOLOGY METHOD 10/26/2024 8:38 AM EST [facility] MCV 96.5 79.0 - 98.0 FL LAB HEMETOLOGY METHOD 10/26/2024 8:38 AM [facility] MCH 31.6 27.0 - 32.0 pcg LAB HEMETOLOGY METHOD 10/26/2024 8:38 AM EST [facility] MCHC 32.8 32.0 - 37.0 g/dL LAB HEMETOLOGY METHOD 10/26/2024 8:38 AM [facility] RDW 13.6 11.0 - 15.0 % LAB HEMETOLOGY METHOD 10/26/2024 8:38 AM [facility] Platelets 217 130 - 400 K/mcL LAB HEMETOLOGY METHOD 10/26/2024 8:38 AM EST [facility] MPV 9.9 7.0 - 11.0 FL LAB HEMETOLOGY METHOD 10/26/2024 8:38 AM [facility] NRBC 0.0 <1.0 % LAB HEMETOLOGY METHOD 10/26/2024 8:38 AM [facility] NRBC Absolute 0.00 <0.10 K/mcL LAB HEMETOLOGY METHOD 10/26/2024 8:38 AM [facility] Blood Venous blood specimen / Unknown Venipuncture / Unknown 10/26/2024 5:19 AM EST 10/26/2024 8:15 AM EST us Jose Francisco Morley MD LAB BLOOD ORDERABLES Final Resu lt [facility] [address] [place] [address], [place] [phone] documented in this encounter Visit Diagnoses Diagnosis Cerebral infarction, unspecified (CMS/HCC V24, CMS/HCC V28) Essential (primary) hypertension Unspecified essential hypertension documented in this encounter Care Teams Pottery Striper Relationship Specialty Start Date End Date Clary Greenwood MD [address] [place] [address] PCP - General 11/30/1992 documented as of this encounter
--- OUTSIDE RECORDS SUMMARY | 2025-04-05 09:00 | XMS_ITS | Clinical Summary ---
Author Organization [facility] Address [address] [place] [address] Care Team Providers Care Metal Sprayer Machined Parts Name Role Phone Clary Greenwood MD Primary Care Provider [phone] Allergies Active Allergy Reactions Criticality Noted Date [...] this topic Medical Devices Implanted Type Area Lock Installer Device Identifier Shelf Expiration Date Model / Serial / Lot Cement Bone Surg Simplex Radiopq Stry-Howm [id number] - [id number] Implanted:Qty: 1 on 01/26/2022 by Gonzalo Pope MD at [facility] Left: Knee Tie Siding Orthopaedics 6191-1-010 / / Cement Bone Surg Simplex Radiopq Stry-Howm [id number] 092 - [id number] Implanted:Qty: 1 on 01/26/2022 by Gonzalo Pope MD at [facility] Left: Knee Ren Orthopaedics 6191-1-010 / / Knee Bsplt Triathlon Ti Sz 4 Stry-Howm [id number] 543 - [id number] Implanted:Qty: 1 on 01/26/2022 by Gonzalo Pope MD at [facility] Left: Knee Ren Orthopaedics [id number] 10/27/2026 5536-B-400 / / [id number] Knee Ptla Asym Tritanium 32x10 Stry-Howm 8960-[id number] 039 - [id number] Implanted:Qty: 1 on 01/26/2022 by Gonzalo Pope MD at [facility] Left: Knee Tie Siding Orthopaedics [id number] 10/16/2026 5552-L-320 / / [id number] Knee Tib Insrt Cr-X3 [id number] Stry-Howm 3687-[id number] 525 - [id number] Implanted:Qty: 1 on 01/26/2022 by Gonzalo Pope MD at [facility] Left: Knee Ren Orthopaedics [id number] 02/10/2025 5530-G-411 / / [id number] Knee Fem Bsplt W Pa Stry-Howm 3258-[id number]-[id number] 553 - [id number] Implanted:Qty: 1 on 01/26/2022 by Gonzalo Pope MD at [facility] and [facility] Left: Knee Ren Orthopaedics [id number] 10/26/2026 5517-F-401 / / [id number] Tibial Bearing Insert Cs 10mm Stry-Howm 5292-[id number] - [id number] Implanted:Qty: 1 on 06/22/2022 by Gonzalo Pope MD at [facility] and [facility] Right: Knee Tie Siding Orthopaedics [id number] 05/05/2027 5531-G-410 -E / / [id number] Knee Bsplt Triathlon Ti Sz 4 Stry-Howm 2058-H-[id number] 543 - [id number] Implanted:Qty: 1 on 06/22/2022 by Gonzalo Pope MD at [facility] Right: Knee Ren Orthopaedics [id number] 04/09/2027 5536-B-400 / / [id number] Knee Fem Bsplt W Pa Stry-Howm 2497-[id number]-[id number] 552 - [id number] Implanted:Qty: 1 on 06/22/2022 by Gonzalo Pope MD at [facility] Right: Knee Ren Orthopaedics [id number] 03/29/2027 5517-F-402 / / [id number] Knee Ptla Asym Tritanium 32x10 Stry-How 0373-[id number] 039 - [id number] Implanted:Qty: 1 on 06/22/2022 by Gonzalo Pope MD at [facility] Right: Knee Ren Orthopaedics [id number] 04/01/2027 5552-L-320 / / [id number] Explanted Type Area Lock Installer Device Identifier Shelf Expiration Date Model / Serial / Lot Tibial Bearing Insert Cs 10mm [employer] 4304-[id number]-158-[id number] - [id number] Explanted:Qty: 1 on 06/22/2022 by Gonzalo Pope MD at [facility] Right: Knee Tie Siding Orthopaedics [id number] 05/04/2027 5531-G-410 -E / / [id number] Advance Directives For more information, please contact: [phone] Documents on File Type Date Recorded Patient Data Abstractor Expl anation Advance Directive and Living Will [...] way: discussion with patient . Care Teams Metal Sprayer Machined Parts Relationship Specialty Start Date End Date Clary Greenwood MD PCP - General Internal Medicine 12/01/21
== END 2025-04-05 08:17 | disposition home or self-care (01) ==
LOC: HO.HMGCX 08:16
PROVIDERS: PCP Internal Medicine; Visit Provider Physician Assistant
DX: M25.522 Pain in left elbow (principal)
CPT/HCPCS: 73080; 99212

== ENCOUNTER → 2025-04-05 08:42 | Outpatient (BNV) | payer MEDICARE, BC, SELFPAY | PROVIDERS: PCP Internal Medicine; Visit Provider Radiology Diagnostic Radiology | DX: M19.022 Primary osteoarthritis, left elbow (principal) | CPT/HCPCS: 73080 ==